=== PATIENT | female | born 2000 | race Hispanic/Latino ===

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

== ENCOUNTER 2023-06-19 19:41 | Emergency (ER) | payer SELFPAY ==
--- OUTSIDE RECORDS SUMMARY | 2023-06-19 19:47 | XMS REPORT | Continuity of Care Document ---
Author Name Unknown Address [address] [facility] [address] [place] [address] [facility] thconnect Address [address] [facility] [address] [place] [address] Care Team Providers Care Transformation Manager Name Role Phone PCP, PATIENT DOES NOT HAVE A Primary Care Physic fiordaliza Unavailable JAM FREITAS Attending Clinician Unavailable James Wheeler MD Attending Clinician [phone] Jam Freitas MD Attending Clinician [phone] SIDNEY SANTAMAIRA Attending Clinician UnavailSIDNEY Augustin Attending Clinician UnavailRAMA Garcia Attending Clinician Unavailab Rama Dominguez Attending Clinician [phone] Teagan Chase MD Attending Clinician [phone] ROWAN ORTEGA Attending Clinician Unavailable Rowan Ortega MD Attending Clinician [phone] ANYA ISAACS Attending Clinician Unavailable Anya Clark Attending Clinician [phone] TEAGAN CHASE Attending Clinician Unavailable ANGUS QUIÑONEZ Attending Clinician ANGUS Ramsay Attending Clinician Sindi hanna Ultrasound, Adc Mfm Attending Clinician Unavaila gera Meza MD, Penelope Attending Clinician + PENELOPE BELL Attending Clinician Unav ailable Doctor Unassigned, [place] Attending Clinician U navailable 2, Ad[facility] Lab Attending Clinician Unavailable Carey Salgado PA-C Attending Clinician [phone] CAREY SALGADO Attending Clinician Unavailable Ultrasound, Ang-Mfm Attending Clinician Unavaila gera Julian DO, Wesley Attending Clinician [phone] NICOL SANCHES Attending Clinician Unavailable Nicol Sanches APN Attending Clinician [phone] Only, Adc Test Attending Clinician Unavailable Pob, [facility] Lab Main Attending Clinician Unavailrichar Keller MD, Jonnie Romano Attending Clinician + [phone] ROWAN ORTEGA Admitting Clinician Unavailable RAMA RESENDIZ Admitting Clinician Unavailab TEAGAN Chavez Admitting Clinician Unavailable Teagan Chase MD Admitting Clinician [phone] Payers Payer Name Policy Type Policy Number Effective Date Expirati on Date Source [facility] [id number] 00:00:00 [employer] [id number] 2023 00:00:00 Problems Condition Name Condition Details Condition Category Status Onset Date Resolution Date Last Treatment Date Treating Clinician Comments Source Oligohydra mnios in third trimester, single or unspecifie d fetus Oligohydra mnios in third trimester, single or unspecifie d fetus Disease Active 06-02 00:00: 00 [facility] Status post tubal ligation Status post tubal ligation Disease Active 06-02 00:00: 00 [facility] Anemia of mother in , antepartum Anemia of mother in , antepartum Disease Active 05-18 00:00: 00 [facility] Anemia of mother in , antepartum Anemia of mother in , antepartum Disease Active 05-18 00:00: 00 [facility] High-risk in third trimester High-risk in third trimester Disease Active 0 3-20 00:00: 00 [facility] Positive RPR test Positive RPR test Disease Active 0 2-13 00:00: 00 [facility] Anemia, antepartum , third trimester Anemia, antepartum , third trimester Disease Active 0 9-08 00:00: 00 [facility] 36 weeks gestation of 36 weeks gestation of Disease Active 0 6-09 00:00: 00 [facility] Low-lying placenta in second trimester Low-lying placenta in second trimester Disease Active 0 6-09 00:00: 00 Last Assessmen t & Plan: Formattin g of this note might be different from the original. Resolved on 11/01/2020 [facility] 39 weeks gestation of 39 weeks gestation of Disease Active 6-09 00:00: 00 [facility] Previous section Previous section Disease Active 3-17 00:00: 00 [facility] Poor growth affecting management of mother in third trimester Poor growth affecting management of mother in third trimester Disease Active 09-20 00:00: 00 [facility] 37 weeks gestation of 37 weeks gestation of Disease Active 09-20 00:00: 00 [facility] Obesity (BMI 30-39.9) Obesity (BMI 30-39.9) Disease Active 09-20 00:00: 00 [facility] Liveborn infant, of loza , born in hospital by delivery Liveborn infant, of loza , born in hospital by delivery Disease Active 09-20 00:00: 00 [facility] Rubella non-immune status, antepartum Rubella non-immune status, antepartum Disease Active 16 00:00: 00 Overview: Formattin g of this note might be different from the original. Address pp [facility] Supervisio n of other normal Supervisio n of other normal Disease Active 4-15 00:00: 00 Overview: Formattin g of this note might be different from the original. See scanned records for previous care [facility] Obesity in Obesity in Disease Active 06-13 00:00: 00 [facility] Supervisio n of high-risk with insufficie nt care in third trimester Supervisio n of high-risk with insufficie nt care in third trimester Disease Active 06-13 00:00: 00 Overview: Formattin g of this note might be different from the original. See scanned records for previous care [facility] Allergies, Adverse Reactions, Alerts Allergy Name Allergy Type Status Severity Reaction(s) Onset Date Inactive Date Treating Clinician Comments Source NO KNOWN ALLERGIE S Drug Class Active [facility] Social History Social Habit Start Date Stop Date Quantity Comments Source ASSERTION 2021-09-26 00:00:00 [facility] 2022-06-05 00:00:00 2022-06-05 00:00:00 Current non-drinker of alcohol (finding) [facility] Exposure to SARS-CoV-2 (event) 2022-05-25 00:00:00 2022-06-04 22:20:00 Not sure [facility] Tobacco use and exposure 2022-06-02 00:00:00 2022-06-02 00:00:00 Smokeless tobacco non-user [facility] History of Social function 2018-09-06 00:00:00 2018-09-06 00:00:00 [facility] Sex Assigned At 2000 00:00:00 2000 00:00:00 [facility] Smoking Status Start Date Stop Date Source Never smoked tobacco [facility] Medications Ordered Medication Name Filled Medication Name Start Date Stop Date Current Medication? Ordering Clinician Indication Dosage Frequency Signature (SIG) Comments Components Source diazePAM (VALIUM) tablet 10 mg 06-04 01:45: 00 06-04 01:44 :00 No 10mg 10 mg, Oral, ONCE, 1 dose, On Wed06/04/23 at 2045, CANDY [facility] acetaminoph en (TYLENOL) tablet 650 mg 04-15 01:15: 00 04-15 01:23 :00 No 650mg 650 mg, Oral, ONCE, 1 dose, On Wed04/14/23 at 1915, CANDY [facility] traMADoL 50 mg tablet 04-14 00:00: 00 04-18 05:59 :00 Yes [id number] 50mg Take 1 tablet by mouth every 6 (six) hours as needed for Pain (scale 7-10) for up to 3 days. Indication s: acute pain [facility] traMADoL (ULTRAM) tablet 50 mg 06-05 05:45: 00 06-05 04:48 :00 No 50mg 50 mg, Oral, ONCE, 1 dose, On Wed06/05/22 at 0045, Routine [facility] ibuprofen (IBU) tablet 600 mg 06-04 17:00: 00 06-04 19:53 :15 No 600mg 600 mg, Oral, Q6H ABX, First dose on Wed06/04/22 at 1200, Until Discontinu ed, Routine [facility] acetaminoph en 325 mg tablet 06-04 00:00: 00 Yes [id number] 650mg Take 2 tablets by mouth every 6 (six) hours as needed for Pain (scale 1-3) or Pain (scale 4-6). [facility] vitamin w/FA tablet 06-04 00:00: 00 Yes [id number] 1{tbl} Take 1 tablet by mouth in the morning. [facility] docusate 100 mg capsule 06-04 00:00: 00 Yes [id number] 200mg Take 2 capsules by mouth once daily as needed for Constipati on. [facility] ferrous sulfate 325 mg (65 mg iron) tablet 06-04 00:00: 00 Yes [id number] 325mg Take 1 tablet by mouth in the morning and 1 tablet in the evening. [facility] ibuprofen 600 mg tablet 06-04 00:00: 00 Yes [id number] 600mg Take 1 tablet by mouth every 6 (six) hours as needed (Pain). Take with food or milk. [facility] vitamin w/FA tablet 06-04 00:00: 00 Yes [id number] 1{tbl} Take 1 tablet by mouth in the morning. [facility] HYDROcodone -acetaminop hen 5-325 mg tablet 06-04 00:00: 00 06-12 04:59 :00 No [id number] 1{tbl} Take 1 tablet by mouth every 6 (six) hours as needed for Pain (scale 7-10) (Alternate with Ibuprofen) for up to 7 days. Indication s: acute pain [facility] gabapentin 300 mg capsule 06-04 00:00: 00 06-10 04:59 :00 No [id number] 300mg Take 1 capsule by mouth in the morning and 1 capsule at noon and 1 capsule in the evening. Do all this for 5 days. [facility] ketorolac (TORADOL) injection 30 mg 06-03 17:00: 00 06-04 11:30 :00 No 30mg 30 mg, Slow IV Push, Q6H ABX, 4 doses, First dose on Wed06/03/22 at 1200, Last dose on Wed06/04/22 at 0600, Routine [facility] gabapentin (NEURONTIN) capsule 300 mg 06-03 13:00: 00 06-04 19:53 :15 No 300mg 300 mg, Oral, TID, First dose on Wed06/03/22 at 0800, Until Discontinu ed, Routine [facility] acetaminoph en (TYLENOL) tablet 650 mg 06-03 11:00: 00 06-04 19:53 :15 No 650mg 650 mg, Oral, Q6H ABX, First dose on Wed06/03/22 at 0600, Until Discontinu ed, Routine [facility] HYDROcodone -acetaminop hen (NORCO 5) 5-325 mg tablet 1 tablet 06-03 11:00: 00 06-04 19:53 :15 No 1{tbl} 1 tablet, Oral, Q6HPRN, Starting on Wed06/03/22 at 0600, Until Wed06/04/22 at 1453, Routine, Pain (scale 7-10), Alternate with Ibuprofen [facility] mupirocin (BACTROBAN OINT) 2 % skin ointment 06-03 02:50: 00 06-04 19:53 :15 No Intra-op [facility] sodium chloride 0.9 % irrigation solution 06-03 02:48: 00 06-04 19:53 :15 No PRN, Starting on Wed06/02/22 at 2148, Until Wed06/04/22 at 1453, Intra-op [facility] rho(D) immune globulin (RHOGAM) syringe 300 mcg 06-03 01:47: 55 06-04 19:53 :15 No 300ug 300 mcg, Intramuscu lar, ONCE, For 1 dose, Conditiona l, Routine [facility] diphenhydrA MINE (BENADRYL) injection 25 mg 06-03 01:46: 02 06-04 19:53 :15 No 25mg 25 mg, Slow IV Push, Q6HPRN, Starting on Wed06/02/22 at 2046, Until Patt 06/04/22 at 1453, Routine, Itching [facility] diphenhydrA MINE (BENADRYL) tablet 25 mg 06-03 01:46: 01 06-04 19:53 :15 No 25mg 25 mg, Oral, Q6HPRN, Starting on Wed06/02/22 at 2046, Until Patt 06/04/22 at 1453, Routine, Sleep, Itching [facility] ondansetron (ZOFRAN (PF)) injection 4 mg 06-03 01:46: 01 06-04 19:53 :15 No 4mg 4 mg, Slow IV Push, Q8HPRN, Starting on Wed06/02/22 at 204, Until Patt 06/04/22 at 1453, Routine, Nausea and Vomiting (N/V) [facility] bisacodyL (DULCOLAX) suppository 10 mg 06-03 01:46: 06-04 19:53 :15 No 10mg 10 mg, Rectal, QDAILYPRN, Starting on Wed06/02/22 at 2045, Until Patt 06/04/22 at 1453, Routine, Constipati on [facility] simethicone (GAS RELIEF (SIMETHICON E)) chewable tablet 160 mg 06-03 01:46: 01 06-04 19:53 :15 No 160mg 160 mg, Oral, PC+HSPRN, Starting on Wed06/02/22 at 2045, Until Patt 06/04/22 at 1453, Routine, Gas [facility] docusate (COLACE) capsule 200 mg 06-03 01:46: 01 06-04 19:53 :15 No 200mg 200 mg, Oral, QDAILYPRN, Starting on Wed06/02/22 at 2045, Until Patt 06/04/22 at 1453, Routine, Constipati on [facility] magnesium hydroxide (MILK OF MAGNESIA) 400 mg/5 mL suspension 30 mL 06-03 01:46: 01 06-04 19:53 :15 No 30mL 30 mL, Oral, QDAILYPRN, Starting on Wed06/02/22 at 2045, Until Patt 06/04/22 at 1453, Routine, Constipati on [facility] lactated ringers IV infusion 1,000 mL 06-03 01:46: 01 06-03 12:51 :00 No 1000mL at 125 mL/hr, 1,000 mL, IV Infusion, PRN, 1 dose, Starting on Wed06/02/22 at 2045, Until Wed06/03/22 at 0751, Routine [facility] sodium citrate-cit mel acid (BICITRA) 500-334 mg/5 mL solution 30 mL 06-02 15:45: 44 06-03 01:36 :00 No 30mL 30 mL, Oral, PRE-PROCED URE ONCE, 1 dose, Starting on Wed06/02/22 at 1045, Until Discontinu ed, Routine, Surgery/Pr ocedure [facility] D5W-LR IV infusion 1,000 mL 06-02 15:45: 44 06-03 01:47 :53 No 1000mL at 1-125 mL/hr, IV Infusion, TITRATE, Starting on Wed06/02/22 at 1045, Until Wed06/02/22 at 2046, Routine [facility] ceFAZolin (ANCEF) 2,000 mg in NaCl 0.9% (NS) 100 mL MINI-BAG 06-02 15:45: 43 06-03 01:47 :53 No 2000mg 2,000 mg, IV Piggyback, O.R. HOLDING ONCE, Starting on Wed06/02/22 at 1045, Until Wed06/02/22 at 2046, Administer over 30 Minutes, 100 mL
Reas on for Anti-Infec tive: Surgical Prophylaxi s
[place] rgical Prophylaxi s: MEDICAL PRACTITIONERS
Duration of therapy: within 24 hours of surgery [facility] ferrous sulfate (IRON, FERROUS SULFATE,) 325 mg (65 mg iron) tablet 05-18 00:00: 00 06-04 00:00 :00 No [id number] 325mg Take 1 tablet by mouth in the morning and 1 tablet in the evening. [facility] ferrous sulfate (IRON, FERROUS SULFATE,) 325 mg (65 mg iron) tablet 04-29 00:00: 00 No [id number] 325mg Take 1 tablet by mouth in the morning and 1 tablet in the evening. [facility] PNV 102-iron-fo late-dha (VITAFOL FE PLUS) 90 mg iron- 1 mg-200 mg Cap 2021-03 00:00: 00 06-04 00:00 :00 No [id number] Take 1 TAB-CAP/M2 by mouth daily. [facility] ibuprofen (IBU) tablet 600 mg -12 09:00: 00 07-10 07:55 :00 No 600mg 600 mg, Oral, ONCE, 1 dose, On Patt 07/10/21 at 0400, [facility] acetaminoph en (TYLENOL) tablet 650 mg 07-10 08:00: 00 07-10 07:02 :00 No 650mg 650 mg, Oral, ONCE, 1 dose, On Patt 07/10/21 at 0300, [facility] HYDROcodone -acetaminop hen 5-325 mg tablet 11-11 00:00: 00 11-19 04:59 :00 No [id number] 1{tbl} Take 1 tablet by mouth every 6 (six) hours as needed for Pain (scale 7-10) for up to 7 days. Indication s: acute pain [facility] ondansetron (ZOFRAN (PF)) injection 4 mg 11-09 19:30: 00 11-09 18:33 :00 No 4mg 4 mg, Slow IV Push, ONCE, 1 dose, 11/09/20 at 1430, [facility] morpHINE injection 4 mg 11-09 19:30: 00 11-09 18:33 :00 No 4mg 4 mg, Slow IV Push, ONCE, 1 dose, 11/09/20 at 1430, STAT [facility] iopamidol (ISOVUE 370-500 mL) injection 120 mL 11-09 19:30: 00 11-09 18:30 :00 No [id number] 120mL 120 mL, Intravenou s, ONCE, 1 dose, 11/09/20 at 1430, Routine [facility] vit calc,iron,f olic ( VITAMIN ORAL) 11-08 12:36: 37 11-08 00:00 :00 No Take by mouth. [facility] ferrous sulfate tablet 325 mg 11-08 01:00: 00 Yes 325mg 325 mg, Oral, BID, First dose on Patt 11/07/20 at 2000, Until Discontinu ed, Routine [facility] ferrous sulfate 325 mg (65 mg iron) tablet 11-08 00:00: 00 05-18 00:00 :00 No [id number] 09 325mg Take 1 tablet by mouth 2 (two) times daily. [facility] acetaminoph en 325 mg tablet 11-08 00:00: 00 12-04 00:00 :00 No [id number] 09 650mg Take 2 tablets by mouth every 6 (six) hours as needed for Pain (scale 1-3) or Pain (scale 4-6). [facility] vitamin w/FA tablet 11-08 00:00: 00 12-04 00:00 :00 No [id number] 09 1{tbl} Take 1 tablet by mouth daily. [facility] docusate calcium 240 mg capsule 11-08 00:00: 00 12-04 00:00 :00 No [id number] 09 240mg Take 1 capsule by mouth once daily as needed for Constipati on. [facility] ibuprofen 600 mg tablet 11-08 00:00: 00 12-04 00:00 :00 No [id number] 09 600mg Take 1 tablet by mouth every 6 (six) hours as needed (Pain). Take with food or milk. [facility] gabapentin 300 mg capsule 11-08 00:00: 00 11-14 04:59 :00 No [id number] 09 300mg Take 1 capsule by mouth 3 (three) times daily for 5 days. [facility] HYDROcodone -acetaminop hen 5-325 mg tablet 11-08 00:00: 00 11-11 00:00 :00 No [id number] 1{tbl} Take 1 tablet by mouth every 6 (six) hours as needed for Pain (scale 7-10) for up to 7 days. Indication s: acute pain [facility] ibuprofen (IBU) tablet 600 mg 11-07 23:00: 00 Yes 600mg 600 mg, Oral, Q6H ABX, First dose (after last modificati on) on Wed11/07/20 at 1800, Until Discontinu ed, Routine [facility] HYDROcodone -acetaminop hen (NORCO 5) 5-325 mg tablet 1 tablet 11-07 05:00: 00 Yes 1{tbl} 1 tablet, Oral, Q6HPRN, Starting Wed11/07/20 at 0000, Until Discontinu ed, Routine, Pain (scale 7-10) [facility] acetaminoph en (TYLENOL) tablet 650 mg 11-07 02:30: 00 Yes 650mg 650 mg, Oral, Q6H ABX, First dose on Wed11/06/20 at 2130, Until Discontinu ed, Routine [facility] ketorolac (TORADOL) injection 30 mg 11-06 23:15: 00 11-07 16:43 :00 No 30mg 30 mg, Slow IV Push, Q6H ABX, 4 doses, First dose (after last modificati on) on Wed11/06/20 at 1815, Last dose on Wed11/07/20 at 1215, Routine
production team member approving Restricted medication : TEAGAN CHASE [facility] acetaminoph en ADULT (OFIRMEV) injection 1,000 mg 11-06 20:30: 00 11-06 20:55 :00 No 1000mg 1,000 mg, IV Infusion, Administer over 15 Minutes, Q6H, 1 dose, First dose on Wed11/06/20 at 1530, Routine, PACU
In dication: Perioperat rivera Patient [facility] gabapentin (NEURONTIN) capsule 300 mg 11-06 19:00: 00 Yes 300mg 300 mg, Oral, TID, First dose on Wed11/06/20 at 1400, Until Discontinu ed, Routine [facility] simethicone (GAS RELIEF (SIMETHICON E)) chewable tablet 160 mg 11-06 18:00: 00 Yes 160mg 160 mg, Oral, PC+HS, First dose on Wed11/06/20 at 1300, Until Discontinu ed, Routine [facility] lactated ringers IV infusion 1,000 mL 11-06 16:15: 00 11-07 03:03 :00 No 1000mL at 125 mL/hr, 1,000 mL, IV Infusion, ONCE, 1 dose, Wed11/06/20 at 1115, Routine [facility] rho(D) immune globulin (RHOGAM) syringe 300 mcg 11-06 15:51: 10 Yes 300ug 300 mcg, Intramuscu lar, ONCE, For 1 dose, Conditiona l, Routine [facility] diphenhydrA MINE (BENADRYL) tablet 25 mg 11-06 15:51: 05 Yes 25mg 25 mg, Oral, Q6HPRN, Starting Wed11/06/20 at 1051, Until Discontinu ed, Routine, Sleep, Itching [facility] ondansetron (ZOFRAN (PF)) injection 4 mg 11-06 15:51: 05 Yes 4mg 4 mg, Slow IV Push, Q8HPRN, Starting Wed11/06/20 at 1051, Until Discontinu ed, Routine, Nausea and Vomiting (N/V) [facility] bisacodyL (DULCOLAX) suppository 10 mg 11-06 15:51: 05 Yes 10mg 10 mg, Rectal, QDAILYPRN, Starting Wed11/06/20 at 1051, Until Discontinu ed, Routine, Constipati on [facility] magnesium hydroxide (MILK OF MAGNESIA) 400 mg/5 mL suspension 30 mL 11-06 15:51: 05 Yes 30mL 30 mL, Oral, QDAILYPRN, Starting Wed11/06/20 at 1051, Until Discontinu ed, Routine, Constipati on [facility] HYDROmorphO ne (DILAUDID) injection 0.2 mg 11-06 15:11: 16 Yes .2mg 0.2 mg, Slow IV Push, Q5MIN PRN, 10 doses, Starting Wed11/06/20 at 1011, Until Discontinu ed, Routine, Pain (scale 7-10), PACU
Us e approved by (Faculty): PACU USE -ANESTHESI A SERVICE-HY DROMORPHON E INJECTIONS [facility] naloxone (NARCAN) injection 0.4 mg 11-06 15:11: 16 11-08 15:10 :16 No .4mg 0.4 mg, Slow IV Push, PRN - SEE INSTRUCTIO NS, Starting Wed11/06/20 at 1011, Until 11/08/20 at 1010, Routine, Analgesia Recovery, PACU [facility] metoclopram chidi HCl (REGLAN) injection 10 mg 11-06 15:11: 16 11-07 15:10 :16 No 10mg 10 mg, Slow IV Push, Q4HPRN, Starting Wed11/06/20 at 1011, Until Patt 11/07/20 at 1010, Routine, Nausea and Vomiting (N/V), PACU [facility] nalbuphine (NUBAIN) injection 5 mg 11-06 15:11: 16 11-06 19:21 :00 No 5mg 5 mg, Intravenou s, PRN, 1 dose, Starting Wed11/06/20 at 1011, Until Discontinu ed, Routine, itching, PACU [facility] vit calc,iron,f olic ( VITAMIN ORAL) 11-06 15:06: 46 Yes Take by mouth. [facility] mupirocin (BACTROBAN OINT) 2 % skin ointment 11-06 14:43: 00 Yes Intra-op [facility] sodium chloride 0.9 % irrigation solution 11-06 14:43: 00 Yes PRN, Starting Wed11/06/20 at 0943, Until Discontinu ed, Intra-op [facility] D5W-LR IV infusion 1,000 mL 11-06 10:45: 00 11-06 15:51 :10 No 1000mL at 125 mL/hr, IV Infusion, CONTINUOUS , Starting Wed11/06/20 at 0545, Until Wed11/06/20 at 1051, Routine [facility] vit calc,iron,f olic ( VITAMIN ORAL) 08-06 20:04: 39 Yes Take by mouth. [facility] Immunizations Ordered Immunization Name Filled Immunization Name Date Status Comments Source MMR 2018-09-22 00:00:00 Completed [facility] MMR 2018-09-22 00:00:00 Completed [facility] MMR 2018-09-22 00:00:00 Completed [facility] MMR 2018-09-22 00:00:00 Completed [facility] MMR 2018-09-22 00:00:00 Completed [facility] MMR 2018-09-22 00:00:00 Completed [facility] MMR 2018-09-22 00:00:00 Completed [facility] MMR 2018-09-22 00:00:00 Completed [facility] MMR 2018-09-22 00:00:00 Completed [facility] MMR 2018-09-22 00:00:00 Completed [facility] MMR 2018-09-22 00:00:00 Completed [facility] MMR 2018-09-22 00:00:00 Completed [facility] MMR 2018-09-22 00:00:00 Completed [facility] MMR 2018-09-22 00:00:00 Completed [facility] MMR 2018-09-22 00:00:00 Completed [facility] MMR 2018-09-22 00:00:00 Completed [facility] MMR 2018-09-22 00:00:00 Completed [facility] MMR 2018-09-22 00:00:00 Completed [facility] MMR 2018-09-22 00:00:00 Completed [facility] MMR 2018-09-22 00:00:00 Completed [facility] MMR 2018-09-22 00:00:00 Completed [facility] MMR 2018-09-22 00:00:00 Completed [facility] MMR 2018-09-22 00:00:00 Completed [facility] MMR 2018-09-22 00:00:00 Completed [facility] MMR 2018-09-22 00:00:00 Completed [facility] MMR 2018-09-22 00:00:00 Completed [facility] MMR 2018-09-22 00:00:00 Completed [facility] MMR 2018-09-22 00:00:00 Completed [facility] MMR 2018-09-22 00:00:00 Completed [facility] MMR 2018-09-22 00:00:00 Completed [facility] MMR 2018-09-22 00:00:00 Completed [facility] MMR 2018-09-22 00:00:00 Completed [facility] MMR 2018-09-22 00:00:00 Completed [facility] MMR 2018-09-22 00:00:00 Completed [facility] MMR 2018-09-22 00:00:00 Completed [facility] MMR 2018-09-22 00:00:00 Completed [facility] MMR 2018-09-22 00:00:00 Completed [facility] MMR 2018-09-22 00:00:00 Completed [facility] MMR 2018-09-22 00:00:00 Completed [facility] MMR 2018-09-22 00:00:00 Completed [facility] MMR 2018-09-22 00:00:00 Completed [facility] MMR 2018-09-22 00:00:00 Completed [facility] MMR 2018-09-22 00:00:00 Completed [facility] MMR 2018-09-22 00:00:00 Completed [facility] MMR 2018-09-22 00:00:00 Completed [facility] MMR 2018-09-22 00:00:00 Completed [facility] TDAP 2018-07-11 00:00:00 Completed [facility] TDAP 2018-07-11 00:00:[address] [facility] TDAP 2018-07-11 00:00:[address] [facility] TDAP 2018-07-11 00:00:[address] [facility] TDAP 2018-07-11 00:00:[address] [facility] TDAP 2018-07-11 00:00:[address] [facility] TDAP 2018-07-11 00:00:[address] [facility] TDAP 2018-07-11 00:00:[address] [facility] TDAP 2018-07-11 00:00:[address] [facility] TDAP 2018-07-11 00:00:00 Completed [facility] TDAP 2018-07-11 00:00:00 Completed [facility] TDAP 2018-07-11 00:00:00 Completed [facility] TDAP 2018-07-11 00:00:00 Completed [facility] TDAP 2018-07-11 00:00:00 Completed [facility] TDAP 2018-07-11 00:00:[address] [facility] TDAP 2018-07-11 00:00:00 Completed [facility] TDAP 2018-07-11 00:00:00 Completed [facility] TDAP 2018-07-11 00:00:00 Completed [facility] TDAP 2018-07-11 00:00:00 Completed [facility] TDAP 2018-07-11 00:00:00 Completed [facility] TDAP 2018-07-11 00:00:00 Completed [facility] TDAP 2018-07-11 00:00:00 Completed [facility] TDAP 2018-07-11 00:00:00 Completed [facility] TDAP 2018-07-11 00:00:00 Completed [facility] TDAP 2018-07-11 00:00:00 Completed [facility] TDAP 2018-07-11 00:00:00 Completed [facility] TDAP 2018-07-11 00:00:00 Completed [facility] TDAP 2018-07-11 00:00:00 Completed [facility] TDAP 2018-07-11 00:00:00 Completed [facility] TDAP 2018-07-11 00:00:00 Completed [facility] TDAP 2018-07-11 00:00:00 Completed [facility] TDAP 2018-07-11 00:00:00 Completed [facility] TDAP 2018-07-11 00:00:00 Completed [facility] TDAP 2018-07-11 00:00:00 Completed [facility] TDAP 2018-07-11 00:00:00 Completed [facility] TDAP 2018-07-11 00:00:00 Completed [facility] TDAP 2018-07-11 00:00:00 Completed [facility] TDAP 2018-07-11 00:00:00 Completed [facility] TDAP 2018-07-11 00:00:00 Completed [facility] TDAP 2018-07-11 00:00:00 Completed [facility] TDAP 2018-07-11 00:00:00 Completed [facility] TDAP 2018-07-11 00:00:00 Completed [facility] TDAP 2018-07-11 00:00:00 Completed [facility] TDAP 2018-07-11 00:00:00 Completed [facility] TDAP 2018-07-11 00:00:00 Completed [facility] TDAP 2018-07-11 00:00:00 Completed [facility] TDAP Unknown Completed [facility] MMR Unknown Completed [facility] TDAP Unknown Completed [facility] MMR Unknown Completed [facility] TDAP Unknown Completed [facility] MMR Unknown Completed [facility] TDAP Unknown Completed [facility] MMR Unknown Completed [facility] TDAP Unknown Completed [facility] MMR Unknown Completed [facility] TDAP Unknown Completed [facility] MMR Unknown Completed [facility] Vital Signs Vital Name Observation Time Observation Value Comments S ource Heart rate 2023-06-05 01:40:00 100 /min [facility] Oxygen saturation in Arterial blood by Pulse oximetry 2023-06-05 01:40:00 96 /min [facility] Systolic blood pressure 2023-06-05 01:29:00 130 mm[Hg] [facility] Diastolic blood pressure 2023-06-05 01:29:00 73 mm[Hg] [facility] Body temperature 2023-06-05 01:29:00 37.28 Maryanne [facility] Respiratory rate 2023-06-05 01:29:00 26 /min [facility] Body height 2023-06-05 01:29:00 160 cm [facility] Body weight 2023-06-05 01:29:00 72.576 kg [facility] BMI 2023-06-05 01:29:00 28.34 kg/m2 [facility] Systolic blood pressure 2023-04-15 03:00:35 117 mm[Hg] [facility] Diastolic blood pressure 2023-04-15 03:00:35 78 mm[Hg] [facility] Heart rate 2023-04-15 03:00:35 80 /min [facility] Respiratory rate 2023-04-15 03:00:35 18 /min [facility] Oxygen saturation in Arterial blood by Pulse oximetry 2023-04-15 03:00:35 100 /min [facility] Body temperature 2023-04-15 00:42:00 37.44 Maryanne [facility] Body height 2023-04-15 00:42:00 160 cm [facility] Body weight 2023-04-15 00:42:00 72.576 kg [facility] BMI 2023-04-15 00:42:00 28.34 kg/m2 [facility] Systolic blood pressure 2022-06-05 20:27:00 115 mm[Hg] [facility] Diastolic blood pressure 2022-06-05 20:27:00 83 mm[Hg] [facility] Heart rate 2022-06-05 20:27:00 89 /min [facility] Body temperature 2022-06-05 20:27:00 36.72 Maryanne [facility] Respiratory rate 2022-06-05 20:27:00 185 /min [facility] Body height 2022-06-05 20:27:00 160 cm [facility] Body weight 2022-06-05 20:27:00 88.724 kg [facility] BMI 2022-06-05 20:27:00 34.65 kg/m2 [facility] Systolic blood pressure 2022-06-05 03:20:00 122 mm[Hg] [facility] Diastolic blood pressure 2022-06-05 03:20:00 80 mm[Hg] [facility] Heart rate 2022-06-05 03:20:00 92 /min [facility] Body temperature 2022-06-05 03:20:00 37.22 Maryanne [facility] Respiratory rate 2022-06-05 03:20:00 16 /min [facility] Body height 2022-06-05 03:20:00 160 cm [facility] Body weight 2022-06-05 03:20:00 86.183 kg [facility] BMI 2022-06-05 03:20:00 33.66 kg/m2 [facility] Oxygen saturation in Arterial blood by Pulse oximetry 2022-06-05 03:20:00 100 /min [facility] Systolic blood pressure 2022-06-04 12:42:00 108 mm[Hg] [facility] Diastolic blood pressure 2022-06-04 12:42:00 76 mm[Hg] [facility] Body temperature 2022-06-04 12:42:00 37.06 Maryanne [facility] Respiratory rate 2022-06-04 12:42:00 16 /min [facility] Oxygen saturation in Arterial blood by Pulse oximetry 2022-06-04 12:42:00 100 /min [facility] Heart rate 2022-06-04 10:19:00 89 [facility] Body height 2022-06-02 16:01:00 160 cm [facility] Body weight 2022-06-02 16:01:00 87.544 kg [facility] BMI 2022-06-02 16:01:00 34.19 kg/m2 [facility] Systolic blood pressure 2022-06-02 20:00:00 92 mm[Hg] [facility] Diastolic blood pressure 2022-06-02 20:00:00 50 mm[Hg] [facility] Heart rate 2022-06-02 20:00:00 71 /min [facility] Body temperature 2022-06-02 20:00:00 36.94 Maryanne [facility] Respiratory rate 2022-06-02 20:00:00 18 /min [facility] Oxygen saturation in Arterial blood by Pulse oximetry 2022-06-02 20:00:00 99 /min [facility] Body height 2022-06-02 16:01:00 160 cm [facility] Body weight 2022-06-02 16:01:00 87.544 kg [facility] BMI 2022-06-02 16:01:00 34.19 kg/m2 [facility] Systolic blood pressure 2022-05-18 15:18:00 107 mm[Hg] [facility] Diastolic blood pressure 2022-05-18 15:18:00 71 mm[Hg] [facility] Heart rate 2022-05-18 15:18:00 84 /min [facility] Body temperature 2022-05-18 15:18:00 36.72 Maryanne [facility] Respiratory rate 2022-05-18 15:18:00 18 /min [facility] Body height 2022-05-18 15:18:00 160 cm [facility] Body weight 2022-05-18 15:18:00 88.451 kg [facility] BMI 2022-05-18 15:18:00 34.54 kg/m2 [facility] Systolic blood pressure 2022-04-29 19:04:00 108 mm[Hg] [facility] Diastolic blood pressure 2022-04-29 19:04:00 73 mm[Hg] [facility] Heart rate 2022-04-29 19:04:00 84 /min [facility] Body temperature 2022-04-29 19:04:00 37.11 Maryanne [facility] Respiratory rate 2022-04-29 19:04:00 18 /min [facility] Body height 2022-04-29 19:04:00 160 cm [facility] Body weight 2022-04-29 19:04:00 77.111 kg [facility] BMI 2022-04-29 19:04:00 30.11 kg/m2 [facility] Systolic blood pressure 2022-04-13 21:43:00 103 mm[Hg] [facility] Diastolic blood pressure 2022-04-13 21:43:00 68 mm[Hg] [facility] Heart rate 2022-04-13 21:43:00 85 /min [facility] Body temperature 2022-04-13 21:43:00 36.61 Maryanne [facility] Body height 2022-04-13 21:43:00 160 cm [facility] Body weight 2022-04-13 21:43:00 84.641 kg [facility] BMI 2022-04-13 21:43:00 33.05 kg/m2 [facility] Systolic blood pressure 2022-02-11 21:12:00 101 mm[Hg] [facility] Diastolic blood pressure 2022-02-11 21:12:00 65 mm[Hg] [facility] Heart rate 2022-02-11 21:12:00 77 /min [facility] Body temperature 2022-02-11 21:12:00 37.06 Maryanne [facility] Respiratory rate 2022-02-11 21:12:00 18 /min [facility] Body height 2022-02-11 21:12:00 160 cm [facility] Body weight 2022-02-11 21:12:00 77.565 kg [facility] BMI 2022-02-11 21:12:00 30.29 kg/m2 [facility] Systolic blood pressure 2022-01-05 21:26:00 103 mm[Hg] [facility] Diastolic blood pressure 2022-01-05 21:26:00 67 mm[Hg] [facility] Heart rate 2022-01-05 21:26:00 101 /min [facility] Body temperature 2022-01-05 21:26:00 36.72 Maryanne [facility] Respiratory rate 2022-01-05 21:26:00 18 /min [facility] Body height 2022-01-05 21:26:00 160 cm [facility] Body weight 2022-01-05 21:26:00 75.025 kg [facility] BMI 2022-01-05 21:26:00 29.30 kg/m2 [facility] Body temperature 2021-07-10 08:00:00 38.06 Maryanne [facility] Systolic blood pressure 2021-07-10 06:42:00 111 mm[Hg] [facility] Diastolic blood pressure 2021-07-10 06:42:00 70 mm[Hg] [facility] Heart rate 2021-07-10 06:42:00 150 /min [facility] Respiratory rate 2021-07-10 06:42:00 22 /min [facility] Body height 2021-07-10 06:42:00 160 cm [facility] Body weight 2021-07-10 06:42:00 68.04 kg [facility] BMI 2021-07-10 06:42:00 26.57 kg/m2 [facility] Oxygen saturation in Arterial blood by Pulse oximetry 2021-07-10 06:42:00 98 /min [facility] Systolic blood pressure 2020-12-04 16:17:00 110 mm[Hg] [facility] Diastolic blood pressure 2020-12-04 16:17:00 75 mm[Hg] [facility] Heart rate 2020-12-04 16:17:00 96 /min [facility] Body temperature 2020-12-04 16:17:00 36.89 Maryanne [facility] Respiratory rate 2020-12-04 16:17:00 18 /min [facility] Body height 2020-12-04 16:17:00 160 cm [facility] Body weight 2020-12-04 16:17:00 76.567 kg [facility] BMI 2020-12-04 16:17:00 29.90 kg/m2 [facility] Systolic blood pressure 2020-11-11 20:18:00 120 mm[Hg] [facility] Diastolic blood pressure 2020-11-11 20:18:00 78 mm[Hg] [facility] Heart rate 2020-11-11 20:18:00 91 /[facility] Body temperature 2020-11-11 20:18:00 36.83 Maryanne [facility] Respiratory rate 2020-11-11 20:18:00 18 /min [facility] Body height 2020-11-11 20:18:00 160 cm [facility] Body weight 2020-11-11 20:18:00 79.833 kg [facility] BMI 2020-11-11 20:18:00 31.18 kg/m2 [facility] Systolic blood pressure 2020-11-09 17:51:00 144 mm[Hg] [facility] Diastolic blood pressure 2020-11-09 17:51:00 82 mm[Hg] [facility] Heart rate 2020-11-09 17:51:00 84 /min [facility] Body temperature 2020-11-09 17:51:00 37.33 Maryanne [facility] Respiratory rate 2020-11-09 17:51:00 14 /min [facility] Body weight 2020-11-09 17:51:00 83.462 kg [facility] BMI 2020-11-09 17:51:00 32.59 kg/m2 [facility] Oxygen saturation in Arterial blood by Pulse oximetry 2020-11-09 17:51:00 99 /min [facility] Systolic blood pressure 2020-11-08 08:51:00 107 mm[Hg] [facility] Diastolic blood pressure 2020-11-08 08:51:00 67 mm[Hg] [facility] Heart rate 2020-11-08 08:51:00 85 /min [facility] Body temperature 2020-11-08 08:51:00 36.56 Maryanne [facility] Respiratory rate 2020-11-08 08:51:00 18 /min [facility] Oxygen saturation in Arterial blood by Pulse oximetry 2020-11-08 08:51:00 100 /min [facility] Body height 2020-11-06 10:47:00 160 cm [facility] Body weight 2020-11-06 10:47:00 83.553 kg [facility] BMI 2020-11-06 10:47:00 32.63 kg/m2 [facility] Systolic blood pressure 2020-11-06 12:30:00 110 mm[Hg] [facility] Diastolic blood pressure 2020-11-06 12:30:00 73 mm[Hg] [facility] Heart rate 2020-11-06 12:30:00 72 /min [facility] Oxygen saturation in Arterial blood by Pulse oximetry 2020-11-06 12:30:00 100 /min [facility] Body temperature 2020-11-06 10:47:00 36.72 Maryanne [facility] Respiratory rate 2020-11-06 10:47:00 18 /min [facility] Body height 2020-11-06 10:47:00 160 cm [facility] Body weight 2020-11-06 10:47:00 83.553 kg [facility] BMI 2020-11-06 10:47:00 32.63 kg/m2 [facility] Systolic blood pressure 2020-11-05 19:29:00 103 mm[Hg] [facility] Diastolic blood pressure 2020-11-05 19:29:00 69 mm[Hg] [facility] Heart rate 2020-11-05 19:29:00 80 /min [facility] Body temperature 2020-11-05 19:29:00 36.78 Maryanne [facility] Respiratory rate 2020-11-05 19:29:00 16 /min [facility] Body height 2020-11-05 19:29:00 160 cm [facility] Body weight 2020-11-05 19:29:00 83.462 kg [facility] BMI 2020-11-05 19:29:00 32.59 kg/m2 [facility] Systolic blood pressure 2020-10-21 21:57:00 114 mm[Hg] [facility] Diastolic blood pressure 2020-10-21 21:57:00 59 mm[Hg] [facility] Heart rate 2020-10-21 21:57:00 102 /min [facility] Body temperature 2020-10-21 21:57:00 36.78 Maryanne [facility] Respiratory rate 2020-10-21 21:57:00 18 /min [facility] Body height 2020-10-21 21:57:00 160 cm [facility] Body weight 2020-10-21 21:57:00 79.924 kg [facility] BMI 2020-10-21 21:57:00 31.21 kg/m2 [facility] Procedures Procedure Date / Time Performed Performing Clinician Source POCT TEST 2023-06-05 01:32:00 Jam Freitas [facility] CONSENT/REFUSAL FOR DIAGNOSIS AND TREATMENT 2023-04-15 00:12:04 Doctor Unassigned, [place] [facility] CONSENT/REFUSAL FOR DIAGNOSIS AND TREATMENT 2022-06-05 03:17:21 Doctor Unassigned, [place] [facility] PREPARE PACKED RBC 2022-06-04 17:48:26 Teagan Chase [facility] CBC WITH DIFF 2022-06-03 09:16:00 Teagan Chase [facility] CBC WITH DIFF 2022-06-03 09:16:00 Teagan Chase [facility] SURGICAL PATHOLOGY EXAM 2022-06-03 02:35:00 Teagan Chase [facility] SECTION 2022-06-03 01:27:00 Teagan Chase [facility] PREPARE PACKED RBC 2022-06-02 18:12:11 Teagan Chase [facility] CBC WITH DIFF 2022-06-02 16:23:00 Teagan Chase [facility] HEPATITIS B SURFACE ANTIGEN 2022-06-02 16:23:00 Teagan Chase [facility] HB ABO GROUPING 2022-06-02 16:23:00 Teagan Chase [facility] RHO (D) IMMUNE GLOBULIN 2022-06-02 16:23:00 Teagan Chase [facility] ADC OR LUIS ALBERTO ONLY - RPR 2022-06-02 16:23:00 Teagan Chase [facility] HIV 1/2 AG-AB WITH REFLEX 2022-06-02 16:23:00 Teagan Chase [facility] CBC WITH DIFF 2022-06-02 16:23:00 Teagan Chase [facility] HEPATITIS B SURFACE ANTIGEN 2022-06-02 16:23:00 Tara Chaseen [facility] HB ABO GROUPING 2022-06-02 16:23:00 Teagan Chase [facility] RHO (D) IMMUNE GLOBULIN 2022-06-02 16:23:00 Jose Antonio Teagan [facility] ADC OR LUIS ALBERTO ONLY - RPR 2022-06-02 16:23:00 Tara Chaseen [facility] HIV 1/2 AG-AB WITH REFLEX 2022-06-02 16:23:00 Jose AntonioTeagan [facility] HOSPITAL ADMISSION 2022-06-02 05:01:00 Doctor Un assigned, [place] [facility] POCT URINALYSIS W/O SPECIFIC GRAVITY 2022-05-18 00:00:00 Jose Antonio Teagan [facility] PATIENT FINANCIAL POLICY 2022-04-29 18:57:56 Doctor Unassigned, [place] [facility] POCT URINALYSIS W/O SPECIFIC GRAVITY 2022-04-29 00:00:00 Billy Carey [facility] STERILIZATION CONSENT FORM 2022-04-13 06:01:00 Doctor Unassigned, [place] [facility] POCT URINALYSIS W/O SPECIFIC GRAVITY 2022-04-13 00:00:00 Jose Antonio Teagan [facility] POCT URINALYSIS W/O SPECIFIC GRAVITY 2022-02-11 00:00:00 Carey Salgado [facility] SCANNED LAB RESULTS 2022-01-19 06:01:00 Doctor Wm shepherd, [place] [facility] URINE DRUG (IMMUNOASSAY) - COMPREHENSIVE DRUG SCREEN 2022-01-05 21:54:00 Teagan Chase [facility] GC & CHLAMYDIA AMPLIFIED ASSAY 2022-01-05 [facility]:54[facility]INAL [facility]OGENS BY NUCLEIC ACID TESTING 2022-01-05 21:54[facility]00 [facility] 2022-01-05 21:54:00 Teagan Chase [facility] PAP SMEAR-LIQUID BASED-CP 2022-01-05 21:54:00 Teagan Chase [facility] ASSIGNMENT OF BENEFITS 2022-01-05 20:45:16 Docto r Unassigned, [place] [facility] POCT TEST 2022-01-05 00:00:00 Teagan Chase [facility] POCT URINALYSIS W/O SPECIFIC GRAVITY 2022-01-05 00:00:00 Teagan Chase [facility] RAPID STREP SCREEN FOR GROUP A 2021-07-10 06:57:00 Nicol Sanches [facility] COVID-19 (ID NOW RAPID TESTING) 2021-07-10 06:57:00 Nicol Sanches [facility] RAPID INFLUENZA A/B 2021-07-10 06:49:00 Nicol Sanches [facility] NOTICE OF PRIVACY PRACTICES 2021-07-10 06:27:49 Doctor Unassigned, [place] [facility] CONSENT/REFUSAL FOR DIAGNOSIS AND TREATMENT 2021-07-10 06:27:10 Doctor Unassigned, [place] [facility] CT ABDOMEN PELVIS W CONTRAST 2020-11-09 18:23:18 James Wheeler [facility] CBC WITH DIFF 2020-11-09 18:00:00 James Wheeler [facility] PROTHROMBIN TIME / INR 2020-11-09 18:00:00 Jorje Wheeler [facility] ACTIVATED PARTIAL THRMPLAS BLANCA 2020-11-09 18:00:00 James Wheeler [facility] CONSENT/REFUSAL FOR DIAGNOSIS AND TREATMENT 2020-11-09 17:41:00 Doctor Unassigned, [place] [facility] CBC WITH DIFF 2020-11-07 08:46:00 [facility] CBC WITH DIFF 2020-11-07 08:46:00 Teagan Chase [facility] VENOUS CORD GAS 2020-11-06 14:26:00 Teagan Chase [facility] VENOUS CORD GAS 2020-11-06 14:26:00 Jose Antonio Teagan [facility] SECTION 2020-11-06 13:33:00 Teagan Chase [facility] SECTION 2020-11-06 13:33:00 Teagan Chase [facility] HOSPITAL ADMISSION 2020-11-06 05:01:00 Doctor Un assigned, [place] [facility] RHO (D) IMMUNE GLOBULIN 2020-11-05 21:10:00 Teagan Chase [facility] RHO (D) IMMUNE GLOBULIN 2020-11-05 21:10:00 ChaseTeagan [facility] ASSIGNMENT OF BENEFITS 2020-11-05 20:35:50 Docto r Unassigned, [place] [facility] POCT URINALYSIS W/O SPECIFIC GRAVITY 2020-11-05 19:30:00 Teagan Chase [facility] >14 WEEKS US LIMITED 2020-10-21 22:30:06 Teagan Chase [facility] URINE DRUG (IMMUNOASSAY) - COMPREHENSIVE DRUG SCREEN 2020-10-21 21:51:00 ChaseTeagan [facility] GC & CHLAMYDIA AMPLIFIED ASSAY 2020-10-21 21:51[facility]CCUS BY PCR 2020-10-21 21:51:00 Teagan Chase [facility] TRICHOMONAS AMPLIFIED ASSAY 2020-10-21 21:51:00 Teagan Chase [facility] POCT URINALYSIS W/O SPECIFIC GRAVITY 2020-10-21 00:00:00 Teagan Chase [facility] L&D VISIT (NON-DELIVERED) 2020-06-30 05:01:00 Doctor Unassigned, [place] [facility] L&D VISIT (NON-DELIVERED) 2020-06-30 05:01:00 Doctor Unassigned, [place] [facility] Encounters Start Date/Time End Date/Time Encounter Type Admission Type Attending Clinicians Care Facility Care Department Encounter ID Source 2020-12-30 22:00:33 Emergency [facility] [id number] [facility] 2020-12-29 23:49:53 Emergency [facility] [id number] [facility] 2020-12-29 16:34:20 Outpatient [facility] [id number] [facility] 2020-12-29 16:33:57 [facility] [facility] [id number] [facility] 2020-12-29 16:33:55 Emergency [facility] [id number] [facility] 2023-06-04 20:25:00 2023-06-04 20:56:00 Emergency X AAYUSH JAM [facility] ERT [id number] [facility] 2023-06-04 20:25:00 2023-06-04 20:56:00 Emergency James Wheeler Brent Anselmo [facility] 1.2840.114 350.1.13.10 4.2.7.2.686 [id number] [id number] [facility] 2023-05-05 15:30:00 2023-05-05 15:30:00 Outpatient R SIDNEY SANTAMARIA CRAIG [facility] [id number] [facility] 2023-04-14 18:43:00 2023-04-14 21:04:00 Emergency X RAMA RESENDIZ [facility] ERT [id number] [facility] 2023-04-14 18:43:00 2023-04-14 21:04:00 Emergency Rama Resendiz [facility] 1.84.114 350.1.13.10 4.2.7.2.686 [id number] [id number] [facility] 2022-10-04 00:00:00 2022-10-04 00:00:00 Patient Secure Msg Teagan Chase [facility] 1.2.840.114 350.1.13.10 4.2.7.2.686 [id number] 134 [id number] [facility] 2022-06-08 00:00:00 2022-06-08 00:00:00 Telephone Teagan Chase [facility] 1.2840.114 350.1.13.10 4.2.7.2.686 [id number] 134 [id number] [facility] 2022-06-05 15:00:00 2022-06-05 15:46:50 Outpatient R JUAN CROWAN SNYDER [facility] [id number] [facility] 2022-06-05 15:00:00 2022-06-05 15:46:50 Routine Visit Rowan Ortega [facility] 1.2.114 350.1.13.10 4.2.7.2.686 [id number] 134 [id number] [facility] 2022-06-04 22:24:00 2022-06-04 23:53:00 Emergency X ANYA ISAACS [facility] ERT [id number] [facility] 2022-06-04 22:24:00 2022-06-04 23:53:00 Emergency Anya Isaacs S [facility] 1.20.114 350.1.13.10 4.2.7.2.686 [id number] [facility] 2022-06-02 10:14:00 2022-06-04 12:35:00 Inpatient P TEAGAN CHASE [facility] [id number] [facility] 2022-06-02 10:14:00 2022-06-04 12:35:00 Hospital Encounter Teagan Chase [facility] 1.2.114 350.1.13.10 4.2.7.2.686 [id number] [id number] [facility] 2022-06-04 00:00:00 2022-06-04 00:00:00 Case Management Teagan Chase [facility] 1..114 350.1.13.10 4.2.7.2.686 [id number] 134 [id number] [facility] 2022-06-04 00:00:00 2022-06-04 00:00:00 Telephone Teagan Chase [facility] 1.2.840.114 350.1.13.10 4.2.7.2.686 [id number] 134 [id number] [facility] 2022-06-02 13:15:00 2022-06-02 15:06:00 Surgery Teagan Chase [facility] 1.2840.114 350.1.13.10 4.2.7.2.686 [id number] [id number] [facility] 2022-06-02 08:30:00 2022-06-02 09:00:00 Candy Polisher Visit Ultrasound, Adc Mfm Christian Melissa Penelope crenshaw [facility] 1.840.114 350.1.13.10 4.2.7.2.686 [id number] 134 [id number] [facility] 2022-06-02 08:30:00 2022-06-02 08:30:00 Outpatient P CHRISTIAN MELISSA Farida PENELOPE [facility] [id number] [facility] 2022-05-27 16:00:00 2022-05-27 16:00:00 Outpatient R TEAGAN CHASE [facility] [id number] [facility] 2022-05-18 09:45:00 2022-05-18 10:35:50 Outpatient R TEAGAN CHASE [facility] [id number] [facility] 2022-05-18 09:45:00 2022-05-18 10:35:50 Routine Visit Teagan Chase [facility] 1.2840.114 350.1.13.10 4.2.7.2.686 [id number] 134 [id number] [facility] 2022-04-30 00:00:00 2022-04-30 00:00:00 Patient Secure Msg Doctor Unassigned, [place] [facility] 1.2840.114 350.1.13.10 4.2.7.2.686 [id number] 134 [id number] [facility] 2022-04-29 13:45:00 2022-04-29 14:00:00 Candy Polisher Visit 2, Adc Lab Carey Salgado [facility] 1.2840.114 350.1.13.10 4.2.7.2.686 [id number] [facility] 2022-04-29 13:45:00 2022-04-29 13:45:00 Outpatient R KRISSSACHINEVITA CAREY [facility] [id number] [facility] 2022-04-29 13:00:00 2022-04-29 13:15:00 Routine Visit Carey Salgado [facility] 1.2840.114 350.1.13.10 4.2.7.2.686 [id number] 134 [id number] [facility] 2022-04-29 00:00:00 2022-04-29 00:00:00 Orders Only Doctor Unassigned, [place] [facility] 1.2840.114 350.1.13.10 4.2.7.2.686 [id number] [id number] [facility] 2022-04-29 00:00:00 2022-04-29 00:00:00 Case Management Teagan Chase [facility] 1.2840.114 350.1.13.10 4.2.7.2.686 [id number] 134 [id number] [facility] 2022-04-13 15:30:00 2022-04-13 16:33:37 Outpatient R TEAGAN CHASE [facility] [id number] [facility] 2022-04-13 15:30:00 2022-04-13 16:33:37 Routine Visit Teagan Chase [facility] 1.2.840.114 350.1.13.10 4.2.7.2.686 [id number] 134 [id number] [facility] 2022-04-13 00:00:00 2022-04-13 00:00:00 Orders Only Doctor Unassigned, [place] [facility] 1.2.840.114 350.1.13.10 4.2.7.2.686 [id number] [id number] [facility] 2022-03-09 16:00:00 2022-03-09 16:00:00 Outpatient R TEAGAN CHASE [facility] [id number] [facility] 2022-03-03 00:00:00 2022-03-03 00:00:00 Telephone Jose Antonio Teagan [facility] 1.2.840.114 350.1.13.10 4.2.7.2.686 [id number] 134 [id number] [facility] 2022-02-11 15:30:00 2022-02-11 16:19:47 Candy Polisher Visit 2, Adc Lab Teagan Chase Bam [facility] 1.2.840.114 350.1.13.10 4.2.7.2.686 [id number] [facility] 2022-02-11 16:15:00 2022-02-11 16:15:00 Routine Visit [facility] 1.2.840.114 350.1.13.10 4.2.7.2.686 [id number] 134 [id number] [facility] 2022-02-11 16:15:00 2022-02-11 15:48:51 Outpatient R CAREY SALGADO [facility] [id number] [facility] 2022-02-11 14:00:00 2022-02-11 15:00:00 Candy Polisher Visit Ultrasound, Wesley Santos [facility] 1.2840.114 350.1.13.10 4.2.7.2.686 [id number] [facility] 2022-02-02 10:45:00 2022-02-02 10:45:00 Outpatient R CAREY SALGADO [facility] [id number] [facility] 2022-02-02 00:00:00 2022-02-02 00:00:00 Telephone Teagan Chase [facility] 1.2840.114 350.1.13.10 4.2.7.2.686 [id number] 134 [id number] [facility] 2022-01-28 00:00:00 2022-01-28 00:00:00 Telephone Teagan Chase [facility] 1.284.114 350.1.13.10 4.2.7.2.686 [id number] 134 [id number] [facility] 2022-01-27 11:00:00 2022-01-27 11:00:00 Outpatient P [facility] [id number] [facility] 2022-01-19 11:45:00 2022-01-19 12:00:00 Candy Polisher Visit 2, Adc Lab Teagan Chase [facility] 1.2840.114 350.1.13.10 4.2.7.2.686 [id number] [facility] 2022-01-19 11:45:00 2022-01-19 11:45:00 Outpatient R TEAAGN CHASE [facility] [id number] [facility] 2022-01-19 00:00:00 2022-01-19 00:00:00 Orders Only Doctor Unassigned, [place] [facility] 1.0.114 350.1.13.10 4.2.7.2.686 [id number] [facility] 2022-01-12 09:30:00 2022-01-12 09:30:00 Outpatient R [facility] [id number] [facility] 2022-01-05 14:30:00 2022-01-05 15:56:35 Outpatient R TEAGAN CHASE [facility] [id number] [facility] 2022-01-05 14:30:00 2022-01-05 15:56:35 Initial Visit Teagan Chase [facility] 1..840.114 350.1.13.10 4.2.7.2.686 [id number] 134 [id number] [facility] 2022-01-05 00:00:00 2022-01-05 00:00:00 Orders Only Doctor Unassigned, [place] [facility] 1.840.114 350.1.13.10 4.2.7.2.686 [id number] [id number] [facility] 2022-01-05 00:00:00 2022-01-05 00:00:00 Refill Teagan Chase [facility] 1.2840.114 350.1.13.10 4.2.7.2.686 [id number] 134 [id number] [facility] 2021-07-10 01:58:00 2021-07-10 03:05:00 Emergency X NICOL SANCHES [facility] ERT [id number] [facility] 2021-07-10 01:58:00 2021-07-10 03:05:00 Emergency Nicol Sanches [facility] 1.84.114 350.1.13.10 4.2.7.2.686 [id number] [facility] 2021-06-04 09:30:00 2021-06-04 09:30:00 Outpatient R TEAGAN CHASE [facility] [id number] [facility] 2021-04-10 15:30:00 2021-04-10 15:30:00 Outpatient R TEAGAN CHASE [facility] [id number] [facility] 2021-04-07 00:00:00 2021-04-07 00:00:00 Telephone Teagan Chase [facility] 1.2.840.114 350.1.13.10 4.2.7.2.686 [id number] 134 [id number] [facility] 2021-01-01 13:00:00 2021-01-01 13:00:00 Outpatient R TEAGAN CHASE [facility] [id number] [facility] 2020-12-12 09:30:00 2020-12-12 09:30:00 [id number] 2020-12-04 10:53:43 2020-12-04 11:41:09 Routine [facility] 1.2.840.114 350.1.13.10 4.2.7.2.686 [id number] 134 [id number] [facility] 2020-12-04 11:15:00 2020-12-04 11:15:00 Outpatient R TEAGAN CHASE [facility] [id number] [facility] 2020-11-14 11:15:00 2020-11-14 11:15:00 Outpatient R CAREY SALGADO [facility] [id number] [facility] 2020-11-11 15:03:52 2020-11-11 15:58:53 Routine Visit Teagan Chase [facility] Profess[facility] nal Building 1.2.840.114 350.1.13.10 4.2.7.2.686 [id number] 134 [id number] [facility] 2020-11-11 13:15:00 2020-11-11 13:15:00 [facility] [id number] [facility] 2020-11-11 00:00:00 2020-11-11 00:00:00 Telephone Teagan Chase [facility] Building 1.2.840.114 350.1.13.10 4.2.7.2.686 [id number] 134 [id number] [facility] 2020-11-11 00:00:00 2020-11-11 00:00:00 Refill Teagan Chase [facility] 1.2.840.114 350.1.13.10 4.2.7.2.686 [id number] 134 [id number] [facility] 2020-11-09 12:42:00 2020-11-09 15:33:00 Emergency WheelerJames [facility] 1.2.840.114 350.1.13.10 4.2.7.2.686 [id number] 084 [id number] [facility] 2020-11-06 05:26:00 2020-11-08 11:42:00 Hospital Encounter Teagan Chase [facility] 1.2.840.114 350.1.13.10 4.2.7.2.686 [id number] [facility] 2020-11-06 08:15:00 2020-11-06 09:37:00 Surgery Teagan Chase [facility] 1.2.840.114 350.1.13.10 4.2.7.2.686 [id number] [facility] 2020-11-06 05:26:00 2020-11-06 05:26:00 Outpatient P TEAGAN CHASE [facility] [id number] [facility] 2020-11-06 00:00:00 2020-11-06 00:00:00 Orders Only Doctor Unassigned, [place] [facility] 1.2.840.114 350.1.13.10 4.2.7.2.686 [id number] [facility] 2020-11-05 15:31:18 2020-11-05 15:46:18 Laboratory Only Only, Adc Test Teagan Chase [facility] 1.2.840.114 350.1.13.10 4.2.7.2.686 [id number] [facility] 2020-11-05 15:26:27 2020-11-05 15:41:27 Candy Polisher Visit Pob, Adc Lab Main [facility]agan [facility] Building 1.2840.114 350.1.13.10 4.2.7.2.686 [id number] [facility] 2020-11-05 14:11:04 2020-11-05 15:10:39 Routine Visit Teagan Chase [facility] Building 1.20.114 350.1.13.10 4.2.7.2.686 [id number] 134 [id number] [facility] 2020-11-05 14:15:00 2020-11-05 14:15:00 Outpatient R TEAGAN CHASE [facility] [id number] [facility] 2020-11-05 00:00:00 2020-11-05 00:00:00 Orders Only Doctor Unassigned, [place] [facility] 1.20.114 350.1.13.10 4.2.7.2.686 [id number] [facility] 2020-11-01 14:56:29 2020-11-01 15:41:29 Candy Polisher Visit Ultrasound, Adc [facility] Jonnie Keller [facility] Building 1.2840.114 350.1.13.10 4.2.7.2.686 [id number] 134 [id number] [facility] 2020-11-01 15:15:00 2020-11-01 15:15:00 Outpatient P [facility] [id number] [facility] 2020-10-28 13:45:00 2020-10-28 13:45:00 Outpatient R TEAGAN CHASE [facility] [id number] [facility] 2020-10-23 00:00:00 2020-10-23 00:00:00 Patient Secure Msg Doctor Unassigned, [place] [facility] 1.2.840.114 350.1.13.10 4.2.7.2.686 [id number] 134 [id number] [facility] 2020-10-22 09:30:00 2020-10-22 09:30:00 Outpatient R [facility] [id number] [facility] 2020-10-21 15:46:34 2020-10-21 17:26:14 Routine Visit Teagan Chase [facility] 1.2.840.114 350.1.13.10 4.2.7.2.686 [id number] 134 [id number] [facility] 2020-10-21 16:15:00 2020-10-21 16:15:00 Outpatient R TEAGAN CHASE [facility] [id number] [facility] 2020-10-21 00:00:00 2020-10-21 00:00:00 Orders Only Doctor Unassigned, [place] [facility] 1.2.840.114 350.1.13.10 4.2.7.2.686 [id number] [facility] 2020-09-30 16:00:00 2020-09-30 16:00:00 Outpatient R TEAGAN CHASE [facility] [id number] [facility] 2020-08-14 10:30:00 2020-08-14 10:30:00 Outpatient R CAREY SALGADO [facility] [id number] [facility] 2020-08-08 14:00:00 2020-08-08 14:00:00 Outpatient R TEAGAN CHASE [facility] [id number] [facility] 2020-07-19 14:00:00 2020-07-19 14:00:00 Outpatient P [facility] [id number] [facility] 2020-07-17 14:45:00 2020-07-17 14:45:00 Outpatient R TEAGAN CHASE [facility] [id number] [facility] 2020-07-10 11:00:00 2020-07-10 11:00:00 Outpatient TEAGAN PEREZ [facility] [id number] [facility] 2020-07-03 00:00:00 2020-07-03 00:00:00 Patient Secure Msg Doctor Unassigned, [place] [facility] 1.2.840.114 350.1.13.10 4.2.7.2.686 [id number] 134 [id number] [facility] 2020-06-28 10:00:00 2020-06-28 10:00:00 Outpatient R [facility] [id number] [facility] 2020-06-12 09:30:00 2020-06-12 09:30:00 Outpatient Jad CAREY SALGADO [facility] [id number] [facility] 2020-05-21 00:00:00 2020-05-21 00:00:00 Outpatient TEAGAN PEREZ [facility] [id number] [facility] 2020-05-15 10:00:00 2020-05-15 10:00:00 Outpatient TEAGAN PEREZ [facility] [id number] [facility] 2020-04-18 09:00:00 2020-04-18 09:00:00 Outpatient TEAGAN PEREZ [facility] [id number] [facility] Results Test Description Test Time Test Comments Results Result Co mments Source [facility] IMMUNE [id number] 15:14:24* Test Item Value Reference Range Interpretation Comme nts RHIG CANDIDATE? (test code = 5188) No- see comment Patient is not a candidate for RhIg- Patient is Rh Positive.Performed at [facility] Laboratory Services - [facility] Blood [address] [place], [place] [id number] Free: [phone] No. [id number] [facility] ([facility]) IMMUNE [id number] 15:14:24* Test Item Value Reference Range Interpretation Comme [facility] RHIG CANDIDATE? (test code = 5188) No- see comment Patient is not a candidate for RhIg- Patient is Rh Positive.Performed at [facility] Laboratory Services - [facility] Blood [address] [place] [id number] Free: [phone] No. [id number] [facility] URINALYSIS W/O SPECIFIC [id number] 15:16:00* Test Item Value Reference Range Interpretation Comme nts POCT PH U (test code = 3254) n/a 5-8 POCT U LEUK EST (test code = 3263) n/a Negative - Negative POCT U NIT (test code = 3262) n/a Negative - Negati ve POCT U PROT (test code = 3259) negative Negative - Negat rivera POCT U GLU (test code = 3256) negative Negative - Negati ve POCT U KETONE (test code = 3258) n/a Negative - Neg ative POCT U BLD (test code = 3257) n/a Negative - Negati ve [facility] URINALYSIS W/O SPECIFIC [id number] 19:15:00* Test Item Value Reference Range Interpretation Comme nts POCT PH U (test code = 3254) n/a 5-8 POCT U LEUK EST (test code = 3263) n/a Negative - N egative POCT U NIT (test code = 3262) n/a Negative - Negati ve POCT U PROT (test code = 3259) neg Negative - Negat rivera POCT U GLU (test code = 3256) neg Negative - Negati ve POCT U KETONE (test code = 3258) n/a Negative - Neg ative POCT U BLD (test code = 3257) n/a Negative - Negati ve [facility] URINALYSIS W/O SPECIFIC [id number] 21:42:00* Test Item Value Reference Range Interpretation Comme nts POCT PH U (test code = 3254) n/a 5-8 POCT U LEUK EST (test code = 3263) n/a Negative - Negative POCT U NIT (test code = 3262) n/a Negative - Negati ve POCT U PROT (test code = 3259) Negative Negative - Negat rivera POCT U GLU (test code = 3256) Normal Negative - Negati ve POCT U KETONE (test code = 3258) n/a Negative - Neg ative POCT U BLD (test code = 3257) n/a Negative - Negati ve [facility] URINALYSIS W/O SPECIFIC [id number] 21:42:00* Test Item Value Reference Range Interpretation Comme nts POCT PH U (test code = 3254) n/a 5-8 POCT U LEUK EST (test code = 3263) n/a Negative - Negative POCT U NIT (test code = 3262) n/a Negative - Negati ve POCT U PROT (test code = 3259) Negative Negative - Negat rivera POCT U GLU (test code = 3256) Normal Negative - Negati ve POCT U KETONE (test code = 3258) n/a Negative - Neg ative POCT U BLD (test code = 3257) n/a Negative - Negati ve [facility] URINALYSIS W/O SPECIFIC [id number] 21:42:00* Test Item Value Reference Range Interpretation Comme nts POCT PH U (test code = 3254) n/a 5-8 POCT U LEUK EST (test code = 3263) n/a Negative - Negative POCT U NIT (test code = 3262) n/a Negative - Negati ve POCT U PROT (test code = 3259) Negative Negative - Negat rivera POCT U GLU (test code = 3256) Normal Negative - Negati ve POCT U KETONE (test code = 3258) n/a Negative - Neg ative POCT U BLD (test code = 3257) n/a Negative - Negati ve [facility] URINALYSIS W/O SPECIFIC [id number] 21:31:00* Test Item Value Reference Range Interpretation Comme nts POCT PH U (test code = 3254) N/A 5-8 POCT U LEUK EST (test code = 3263) N/A Negative - N egative POCT U NIT (test code = 3262) N/A Negative - Negati ve POCT U PROT (test code = 3259) NEG Negative - Negat rivera POCT U GLU (test code = 3256) NEG Negative - Negati ve POCT U KETONE (test code = 3258) N/A Negative - Neg ative POCT U BLD (test code = 3257) N/A Negative - Negati ve [facility] [id number] 21:31:00* Test Item Value Reference Range Interpretation Comme nts POCT PREG (test code = 1605) Positive On board controls acceptable with C Line (test code = 3574) Yes POCT PREG LOT # (test code = 3575) POCT PREG TEST DATE ( test code = 3576) [facility] [id number] 21:31:00* Test Item Value Reference Range Interpretation Comme nts POCT PREG (test code = 1605) Positive On board controls acceptable with C Line (test code = 3574) Yes POCT PREG LOT # (test code = 3575) POCT PREG TEST DATE ( test code = 3576) [facility] [id number] 21:31:00* Test Item Value Reference Range Interpretation Comme nts POCT PREG (test code = 1605) Positive On board controls acceptable with C Line (test code = 3574) Yes POCT PREG LOT # (test code = 3575) POCT PREG TEST DATE ( test code = 3576) [facility] URINALYSIS W/O SPECIFIC [id number] 21:30:00* Test Item Value Reference Range Interpretation Comme nts POCT PH U (test code = 3254) n/a 5-8 POCT U LEUK EST (test code = 3263) n/a Negative - Negative POCT U NIT (test code = 3262) n/a Negative - Negati ve POCT U PROT (test code = 3259) negative Negative - Negat rivera POCT U GLU (test code = 3256) negative Negative - Negati ve POCT U KETONE (test code = 3258) n/a Negative - Neg ative POCT U BLD (test code = 3257) n/a Negative - Negati ve [facility] UR[facility] W/O SPECIFIC [id number] 21:30:00* Test Item Value Reference Range Interpretation Comme nts POCT PH U (test code = 3254) n/a 5-8 POCT U LEUK EST (test code = 3263) n/a Negative - Negative POCT U NIT (test code = 3262) n/a Negative - Negati ve POCT U PROT (test code = 3259) negative Negative - Negat rivera POCT U GLU (test code = 3256) negative Negative - Negati ve POCT U KETONE (test code = 3258) n/a Negative - Neg ative POCT U BLD (test code = 3257) n/a Negative - Negati ve [facility]/O SPECIFIC [id number] 21:30:00* Test Item Value Reference Range Interpretation Comme nts POCT PH U (test code = 3254) n/a 5-8 POCT U LEUK EST (test code = 3263) n/a Negative - Negative POCT U NIT (test code = 3262) n/a Negative - Negati ve POCT U PROT (test code = 3259) negative Negative - Negat rivera POCT U GLU (test code = 3256) negative Negative - Negati ve POCT U KETONE (test code = 3258) n/a Negative - Neg ative POCT U BLD (test code = 3257) n/a Negative - Negati ve [facility] ABDOMEN PELVIS W [id number] 19:53:12Postoperative appearance of section. Trace pneumoperitoneum andsmall amount of free fluid in the pelvis with blood density are consistentwith the expected postoperative changes. No large hematoma or evidence ofactive hemorrhage. Preliminary Report Dictated by Resident: Eugenio Pineda MD., have reviewed this study and agree with the abovereport.EXAM: CT ABDOMEN/PELVIS WITH CONTRAST HISTORY: ?Wound dehiscence. Lower abdominal hematoma from c section scar COMPARISON: Noneavailable TECHNIQUE AND FINDINGS: Contiguous axial imaging from the level of the lungbases through the proximal thighs was performed after the administration of120 ?cc of intravenous Omnipaque contrast. Coronal and sagittalreconstructions were obtained. ?Auto mA and/or iterative reconstructionwere used to reduce radiation dose. FINDINGS: LOWER THORAX: The lungs bases are clear. No cardiomegaly. LIVER: No focal hepatic lesions. ?Normal contour. GALLBLADDER AND BILIARY TREE: No biliary ductal dilation. ?No gallbladderwall thickening. SPLEEN: No splenomegaly. PANCREAS: No ductal dilation or masses. ADRENAL GLANDS: No adrenal nodules. KIDNEYS: Bilateral symmetrical enhancement. No hydronephrosis, stones, ormasses. GI TRACT: No dilation or wall thickening. PELVIS/BLADDER: Enlarged uterus with and changes. PERITONEUM AND RETROPERITONEUM: Pneumoperitoneum, small volume. Smallamount of free fluid in the pelvis with average Hounsfield unit sonfublvshi77-34 between the uterus and the urinary bladder. LYMPH NODES: No lymphadenopathy. VESSELS: Unremarkable. BONES AND SOFT TISSUES: No suspicious lytic or sclerotic bony lesions.Postoperative changes of fat stranding in the lower anterior abdominal walland foci of air. [facility], Radiant Results Inft User - 11/09/2020 2:54 PM CDT EXAM: CT ABDOMEN/PELVIS WITH CONTRASTHISTORY: Wound dehiscence. Lower abdominal hematoma from c section scar COMPARISON: None availableTECHNIQUE AND FINDINGS: Contiguous axial imaging from the level of the lungbases through the proximal thighs was performed after the administration of120 cc of intravenous Omnipaque contrast. Coronal and sagittalreconstructions were obtained. Auto mA and/or iterative reconstructionwere used to reduce r adiation dose.FINDINGS:LOWER THORAX: The lungs bases are clear. No cardiomegaly.LIVER: No focal hepatic lesions. Normal contour.GALLBLADDER AND BILIARY TREE: No biliary ductal dilation. No gallbladderwall thickening.SPLEEN: No splenomegaly.PANCREAS: No ductal dilation or masses.ADRENAL GLANDS: No ad renal nodules.KIDNEYS: Bilateral symmetrical enhancement. No hydronephrosis, stones, ormasses.GI TRACT: No dilation or wall thickening.PELVIS/BLADDER: Enlarged uterus with and changes.PERITONEUM AND RETROPERITONEUM: Pneumoperitoneum, small volume. Smallamount of free fluid in th e pelvis with average Hounsfield unit gdiymnptuba22-41 between the uterus and the urinary bladder. LYMPH NODES: No lymphadenopathy.VESSELS: Unremarkable.BONES AND SOFT TISSUES: No suspicious lytic orsclerotic bony lesions.Postoperative changes of fat stranding in the lower anterior abdominal walland foci of air.IMPRESSIONPostoperative appearance of section. Trace pneumoperitoneum andsmall amount of free fluid in the pelvis with blood density are consistentwith the expected postoperative changes. No large hematoma or evidence ofactive hemorrhage.Preliminary Report Dictated by Resident: Rubia Bui, Eugenio Garcia MD., have reviewed this study and agree with the abovereport.[facility] ParkwayACTIVATED PARTIAL THRMPLAS BLANCA 2020-11-09 18:21:53* Test Item Value Reference Range Interpretation Comme [facility] APTT Patient (test code = 3173-2) See_Comment [Automated message] The system which generated this result transmitted reference range: 23 - 38 Seconds. The reference range was not used to interpret this result as normal/abnormal. THALIA (test code = THALIA) The [facility] patient population mean normal value for aPTT is 30 seconds. Lab Interpretation (test code = 75289-2) Normal [facility] ParkwayPROTHROMBIN TIME / [id number] 18:19:51* Test Item Value Reference Range Interpretation Comme [facility] PROTIME PATIENT (test code = 5964-2) See_Comment [Automated [employer]] The system which generated this result transmitted reference range: 12.0 - 14.7 Seconds. The reference range was not used to interpret this result as normal/abnormal. INR (test code = 6301-6) Normal INR <1.1; Warfarin Therapeutic range 2.0 to 3.0 or 2.5 to 3.5, depending upon the indications. Lab Interpretation (test code = 64627-6) Normal [facility] ParkwayCBC WITH LUET8568-55-78 18:09:31* Test Item Value Reference Range Interpretation Comme [facility] WBC (test code = 6690-2) See_Comment [Automated [employer]] The system which generated this result transmitted reference range: 4.30 - 11.10 10*3/?L. The reference range was not used to interpret this result as normal/abnormal. RBC (test code = 789-8) See_Comment L [Automated messa ge] The system which generated this result transmitted reference range: 3.93 - 5.25 10*6/?L. The reference range was not used to interpret this result as normal/abnormal. HGB (test code = 718-7) 8.4 g/dL 11.6-15.0 L HCT (test code = 4544-3) 26.4 % 35.7-45.2 L MCV (test code = 787-2) 77.9 fL 80.6-95.5 L MCH (test code = 785-6) 24.8 pg 25.9-32.8 L MCHC (test code = 786-4) 31.8 g/dL 31.6-35.1 RDW-SD (test code = 62232-1) 46.0 fL 39.0-49.9 RDW-CV (test code = 788-0) 16.5 % 12.0-15.5 H PLT (test code = 777-3) See_Comment [Automated messa ge] The system which generated this result transmitted reference range: 166 - 358 10*3/?L. The reference range was not used to interpret this result as normal/abnormal. MPV (test code = 60518-5) 8.9 fL 9.5-12.9 L NRBC/100 WBC (test code = 4496702994) See_Comment [Automated [employer] ssage] The system which generated this result transmitted reference range: 0.0 - 10.0 /100 WBCs. The reference range was not used to interpret this result as normal/abnormal. NRBC x10^3 (test code = 0245981671) <0.01 See_Comment [Automated messa ge] The system which generated this result transmitted reference range: 10*3/?L. The reference range was not used to interpret this result as normal/abnormal. GRAN MAT (NEUT) % (test code = 770-8) 71.3 % IMM GRAN % (test code = 2132466829) 0.40 % LYMPH % (test code = 736-9) 19.0 % MONO % (test code = 5905-5) 7.0 % EOS % (test code = 713-8) 1.7 % BASO % (test code = 706-2) 0.6 % GRAN MAT x10^3(ANC) (test code = 0490283718) 3.68 10*3/uL 1.88-7.09 IMM GRAN x10^3 (test code = 5729961753) <0.03 0.00-0.06 LYMPH x10^3 (test code = 731-0) 0.98 10*3/uL 1.32-3.29 L MONO x10^3 (test code = 742-7) 0.36 10*3/uL 0.33-0.92 EOS x10^3 (test code = 711-2) 0.09 10*3/uL 0.03-0.39 BASO x10^3 (test code = 704-7) 0.03 10*3/uL 0.01-0.07 Lab Interpretation (test code = 50048-5) Abnormal [facility] with Ygapappokwlr7114-95-58 12:19:04* Test Item Value Reference Range Interpretation Comme nts WBC (test code = 6690-2) See_Comment [Automated messa ge] The system which generated this result transmitted reference range: 4.30 - 11.10 10*3/?L. The reference range was not used to interpret this result as normal/abnormal. RBC (test code = 789-8) See_Comment L [Automated messa ge] The system which generated this result transmitted reference range: 3.93 - 5.25 10*6/?L. The reference range was not used to interpret this result as normal/abnormal. HGB (test code = 718-7) 6.5 g/dL 11.6-15.0 L HCT (test code = 4544-3) 20.1 % 35.7-45.2 L MCV (test code = 787-2) 77.6 fL 80.6-95.5 L MCH (test code = 785-6) 25.1 pg 25.9-32.8 L MCHC (test code = 786-4) 32.3 g/dL 31.6-35.1 RDW-SD (test code = 33772-1) 45.0 fL 39.0-49.9 RDW-CV (test code = 788-0) 16.1 % 12.0-15.5 H PLT (test code = 777-3) See_Comment [Automated messa ge] The system which generated this result transmitted reference range: 166 - 358 10*3/?L. The reference range was not used to interpret this result as normal/abnormal. MPV (test code = 95835-5) 10.0 fL 9.5-12.9 NRBC/100 WBC (test code = 2787280469) See_Comment [Automated [employer] ssage] The system which generated this result transmitted reference range: 0.0 - 10.0 /100 WBCs. The reference range was not used to interpret this result as normal/abnormal. NRBC x10^3 (test code = 0913615832) <0.01 See_Comment [Automated [employer] ge] The system which generated this result transmitted reference range: 10*3/?L. The reference range was not used to interpret this result as normal/abnormal. GRAN MAT (NEUT) % (test code = 770-8) 74.6 % IMM GRAN % (test code = 7613608660) 0.40 % LYMPH % (test code = 736-9) 18.1 % MONO % (test code = 5905-5) 6.2 % EOS % (test code = 713-8) 0.4 % BASO % (test code = 706-2) 0.3 % GRAN MAT x10^3(ANC) (test code = 5148649851) 6.98 10*3/uL 1.88-7.09 IMM GRAN x10^3 (test code = 7028659545) 0.04 10*3/uL 0.00-0.06 LYMPH x10^3 (test code = 731-0) 1.70 10*3/uL 1.32-3.29 MONO x10^3 (test code = 742-7) 0.58 10*3/uL 0.33-0.92 EOS x10^3 (test code = 711-2) 0.04 10*3/uL 0.03-0.39 BASO x10^3 (test code = 704-7) 0.03 10*3/uL 0.01-0.07 Lab Interpretation (test code = 46230-1) Abnormal [facility] with Yripzldlnuiq6837-64-60 12:19:04* Test Item Value Reference Range Interpretation Comme nts WBC (test code = 6690-2) See_Comment [Automated messa ge] The system which generated this result transmitted reference range: 4.30 - 11.10 10*3/?L. The reference range was not used to interpret this result as normal/abnormal. RBC (test code = 789-8) See_Comment L [Automated messa ge] The system which generated this result transmitted reference range: 3.93 - 5.25 10*6/?L. The reference range was not used to interpret this result as normal/abnormal. HGB (test code = 718-7) 6.5 g/dL 11.6-15.0 L HCT (test code = 4544-3) 20.1 % 35.7-45.2 L MCV (test code = 787-2) 77.6 fL 80.6-95.5 L MCH (test code = 785-6) 25.1 pg 25.9-32.8 L MCHC (test code = 786-4) 32.3 g/dL 31.6-35.1 RDW-SD (test code = 80021-0) 45.0 fL 39.0-49.9 RDW-CV (test code = 788-0) 16.1 % 12.0-15.5 H PLT (test code = 777-3) See_Comment [Automated messa ge] The system which generated this result transmitted reference range: 166 - 358 10*3/?L. The reference range was not used to interpret this result as normal/abnormal. MPV (test code = 51094-3) 10.0 fL 9.5-12.9 NRBC/100 WBC (test code = 3036602440) See_Comment [Automated [employer] ssage] The system which generated this result transmitted reference range: 0.0 - 10.0 /100 WBCs. The reference range was not used to interpret this result as normal/abnormal. NRBC x10^3 (test code = 3551434894) <0.01 See_Comment [Automated messa ge] The system which generated this result transmitted reference range: 10*3/?L. The reference range was not used to interpret this result as normal/abnormal. GRAN MAT (NEUT) % (test code = 770-8) 74.6 % IMM GRAN % (test code = 0849238488) 0.40 % LYMPH % (test code = 736-9) 18.1 % MONO % (test code = 5905-5) 6.2 % EOS % (test code = 713-8) 0.4 % BASO % (test code = 706-2) 0.3 % GRAN MAT x10^3(ANC) (test code = 4819961245) 6.98 10*3/uL 1.88-7.09 IMM GRAN x10^3 (test code = 8845975562) 0.04 10*3/uL 0.00-0.06 LYMPH x10^3 (test code = 731-0) 1.70 10*3/uL 1.32-3.29 MONO x10^3 (test code = 742-7) 0.58 10*3/uL 0.33-0.92 EOS x10^3 (test code = 711-2) 0.04 10*3/uL 0.03-0.39 BASO x10^3 (test code = 704-7) 0.03 10*3/uL 0.01-0.07 Lab Interpretation (test code = 59177-0) Abnormal [facility] (D) IMMUNE IQFLIQWL9815-35-89 16:59:46* Test Item Value Reference Range Interpretation Comme nts RHIG CANDIDATE? (test code = 5055) No- see comment Patient is not a candidate for RhIg- Patient is Rh Positive.Performed at [facility] Laboratory Services [facility] Blood [address] [place] [address] Free: [phone] No. [id number] [facility] (D) IMMUNE YYGBLCJV7717-90-08 16:59:46* Test Item Value Reference Range Interpretation Comme nts RHIG CANDIDATE? (test code = 5055) No- see comment Patient is not a candidate for RhIg- Patient is Rh Positive.Performed at [facility] Laboratory [facility] Blood [address] [place] [address]Beqs Free: [phone] No. [id number] [facility] Cord Lsm9397-30-94 15:05:00* Test Item Value Reference Range Interpretation Comme nts VENOUS BASE EXCESS, CORD (test code = 2019556001) mEq/L VENOUS PH, CORD (test code = 2529881609) 7.25-7.45 VENOUS PC02, CORD (test code = 6422499606) See_Comment [Automated messa ge] The system which generated this result transmitted reference range: 27 - 49 mmHg. The reference range was not used to interpret this result as normal/abnormal. VENOUS PO2, CORD (test code = 3592480439) See_Comment [Automated me ssage] The system which generated this result transmitted reference range: 17 - 41 mmHg. The reference range was not used to interpret this result as normal/abnormal. VENOUS BICARBONATE, CORD (test code = 8043258928) See_Comment [Automated messa ge] The system which generated this result transmitted reference range: 12 - 29 mEq/L. The reference range was not used to interpret this result as normal/abnormal. [facility] Cord Ojp2535-35-75 15:05:00* Test Item Value Reference Range Interpretation Comme nts VENOUS BASE EXCESS, CORD (test code = 8029971725) mEq/L VENOUS PH, CORD (test code = 9449307983) 7.25-7.45 VENOUS PC02, CORD (test code = 1204454289) See_Comment [Automated messa ge] The system which generated this result transmitted reference range: 27 - 49 mmHg. The reference range was not used to interpret this result as normal/abnormal. VENOUS PO2, CORD (test code = 1611597948) See_Comment [Automated me ssage] The system which generated this result transmitted reference range: 17 - 41 mmHg. The reference range was not used to interpret this result as normal/abnormal. VENOUS BICARBONATE, CORD (test code = 5296579851) See_Comment [Automated messa ge] The system which generated this result transmitted reference range: 12 - 29 mEq/L. The reference range was not used to interpret this result as normal/abnormal. [facility] Cord Tal3321-94-84 14:34:56* Test Item Value Reference Range Interpretation Comme nts BASE EXCESS, CORD (test code = 9526012070) mEq/L AC PH, CORD (BEAKER) (test code = 5392952719) 7.18-7.38 PC02, CORD (test code = 4455913295) See_Comment [Automated messa ge] The system which generated this result transmitted reference range: 32 - 66 mmHg. The reference range was not used to interpret this result as normal/abnormal. PO2, CORD (test code = 6041171329) See_Comment [Automated messa ge] The system which generated this result transmitted reference range: 10 - 30 mmHg. The reference range was not used to interpret this result as normal/abnormal. BICARBONATE, CORD (test code = 8928532392) See_Comment [Automated messa ge] The system which generated this result transmitted reference range: 17 - 27 mEq/L. The reference range was not used to interpret this result as normal/abnormal. [facility] ParkwayArterial Cord Ire2129-19-64 14:34:56* Test Item Value Reference Range Interpretation Comme nts BASE EXCESS, CORD (test code = 4615603676) mEq/L AC PH, CORD (BEAKER) (test code = 2658657525) 7.18-7.38 PC02, CORD (test code = 5801641049) See_Comment [Automated messa ge] The system which generated this result transmitted reference range: 32 - 66 mmHg. The reference range was not used to interpret this result as normal/abnormal. PO2, CORD (test code = 5806254537) See_Comment [Automated messa ge] The system which generated this result transmitted reference range: 10 - 30 mmHg. The reference range was not used to interpret this result as normal/abnormal. BICARBONATE, CORD (test code = 4849327035) See_Comment [Automated messa ge] The system which generated this result transmitted reference range: 17 - 27 mEq/L. The reference range was not used to interpret this result as normal/abnormal. [facility] URINALYSIS W/O SPECIFIC IPDQSOL0588-60-04 19:30:00* Test Item Value Reference Range Interpretation Comme nts POCT PH U (test code = 3254) n/a 5-8 POCT U LEUK EST (test code = 3263) n/a Negative - N egative POCT U NIT (test code = 3262) n/a Negative - Negati ve POCT U PROT (test code = 3259) neg Negative - Negat rivera POCT U GLU (test code = 3256) neg Negative - Negati ve POCT U KETONE (test code = 3258) n/a Negative - Neg ative POCT U BLD (test code = 3257) n/a Negative - Negati ve [facility] ParkwayGROUP B STREPTOCOCCUS BY TIR0293-18-75 16:30:26* Test Item Value Reference Range Interpretation Comme nts Group B Streptococcus by PCR (test code = 79118-0) Negative Negative Lab Interpretation (test cod e = 66144-9) Normal [facility] ParkwayGC & CHLAMYDIA AMPLIFIED GDGQD0839-79-16 18:37:52* Test Item Value Reference Range Interpretation Comme nts C. trachomatis Nucleic Acid (test code = 40554-3) Negative Negative N. gonorrhoeae Nucleic Acid (test code = 61650-6) Negative Negative THALIA (test code = THALIA) Lab Interpretation (test cod e = 29938-5) Normal [facility] ParkwayTRICHOMONAS AMPLIFIED YGBPA1013-87-92 18:32:50 * Test Item Value Reference Range Interpretation Comme nts Trichomonas Nucleic Acid (te st code = 46496-4) Negative Negative THALIA (test code = THALIA) Lab Interpretation (test cod e = 92487-4) Normal [facility] ParkwayURINE DRUG (IMMUNOASSAY) - COMPREHENSIVE DRUG RUCJCJ3035-20-00 00:11:29* Test Item Value Reference Range Interpretation Comme nts AMPHET (test code = 7716761171) Negative Negative BERNARDINO U (test code = 9356510477) Negative Negative BENZO U (test code = 0887138366) Negative Negative Cocaine Metabolite (test code = 0187214917) Negative Negative METHADONE (test code = 1179878407) Negative Negative OPIATES (test code = 8804819846) Negative Negative PCP (test code = 9761999196) Negative Negative THC (test code = 1907376635) Presumptive Positive Negative A THALIA (test code = THALIA) Lab Interpretation (test code = 84268-1) Abnormal [facility]>14 WEEKS US CFXDGKT5760-00-91 22:30:30Limited USG for presentation: ?Cephalic Teagan Bam Chase MD ?10/21/2020 ?5:30 [facility]UnChildren[facility] AntonioPOCT URINALYSIS W/O SPECIFIC GRAVITY 2020-10-21 22:01:00* Test Item Value Reference Range Interpretation Comme nts POCT PH U (test code = 3254) n/a 5-8 POCT U LEUK EST (test code = 3263) n/a Negative - N egative POCT U NIT (test code = 3262) n/a Negative - Negati ve POCT U PROT (test code = 3259) neg Negative - Negat rivera POCT U GLU (test code = 3256) neg Negative - Negati ve POCT U KETONE (test code = 3258) n/a Negative - Neg ative POCT U BLD (test code = 3257) n/a Negative - Negati ve Lab Interpretation (test cod e = 99367-0) Normal [facility] Notes Date/Time Note Provider Source 2023-06-04 20:55:25 /AI3I9CCkUNhEL9NqmtzbzlwP2MbjFAuv5WV PtlSQWrCEWzCof7+ME/jC7F3Rn142233-77- 05T20:55:25 Pt cleared for incarceration.Pt verbalized understanding of instructions, pt awake alert oriented, resp reg unlabored, skin w/d, color appropriate for race, moves all ext well,pt encouraged to follow up with pcp.No adverse reaction to meds given in ER noted upon dischargeAwake, alert oriented, resp reg unlabored, skin w/d, pt leaving amb with steady gait with [place] [employer] officer beside her, in no apparent distress, 80752-2Iwleavxyq department UubmGK1538-83-44L12:56:37Emergency department NoteTXT1.2.840.963569.1.13.104.2.7.2 .166193|[id number] for patient tffp05022-5VvilXAWVGGMMYCNCpuhmmzvu C-CDA narrative [id number] Hampton RN[address] Nk[id number] CDCZPGXWKTKXDHTPPLIKWF7234-18-74E90: 56:371.2.840.674906.1.72.3.15|1.2.84 0.860546.1.13.104.2.7.2.727879_20676 77152 Florencia Hampton RN [facility] 2023-06-04 20:25:59 lntfJ9oVxoOuAOPQlWmpB2Z4LA0ZNwaI61P5 j9Zw8eIQh04M2BUm7n6Vc0DYJK3s6992-69- 05T20:25:59 Pt arrived via [facility] in custody with [employer] for medical clearance. Pt was arrested and began having an anxiety attack and stated she wanted to hurt herself.Pt remains in custody with officer at bedside. 54693-2Ktxigcaga department Triage gjosPF9817-15-74B41:27:17Em[facility]iloam [facility] hospitalcy department Triage noteTXT1.2.840.275086.1.13.104.2.7.2 .549132|[id number] for patient pbph33526-3Jpitoxbxg department NoteLNNARRATIVEFormatted C-CDA narrative textUT[address] RiqoTzeydjnshKgookagrzDKEE6099121429 NXAQWEUVLHWSWQQTOAPIBR8274-16-33O81: 27:171.2.840.791963.1.72.3.15|1.2.84 0.542092.1.13.104.2.7.2.727879_20676 0[address]64 [facility] 2023-06-04 20:22:00 hSguwJYvetvNJX4JBGCTCBTqn5RXlpuV8/nM S2tlowWPo7LIYr7AsADMKZlInYlm8284-81- 05T20:22:00 [facility] Emergency Department NotePatient Name: Carrie Grady of : 2000 22 year old femaleTreatment Room: TX3/YP6Dbgsark Record Number: [id number] Care Physician: PATIENT DOES NOT HAVE A PCPPatient Escorted by: Self [9]Mode of Arrival: EMS - [facility] ([place]) [43]EMS Treatment Prior to ED Arrival:MANAGER COMMUNICATION treatment: NoneTravel and Exposure Screening:SymptomsDoes patient have any of these symptoms?: (not recorded)Exposure ScreeningHas patient had contact with someone with a communicable disease in the last month?: (not recorded)Diseases exposed to:: (not recorded)Is Patient ?: (not recorded)Exposure Date: (not recorded)Chief Complaint:Chief ComplaintPatient presents withOtherMedical ClearanceHistory of Present Illness:22 y.o. female brought in by PD for FIT. Patient reports severe anxiety attack at this time. Patient reported to PD that she wanted to hurt self, but denies upon arrival to ED.Past Medical History/Immunizations:Past Medical History:Diagnosis DateAnemia, antepartum, third trimester 11/06/2020V (bacterial vaginosis) 08/07/2020Tetanus received in last 5 years: UnknownAllergies:No Known AllergiesPast Social History:Tobacco UseNever smoked or used smokeless tobacco.Passive Exposure: NeverVaping UseNever usedAlcohol UseNo.Drug UseNot Currently.Sexual ActivitySexually active; Partners: Male; Control/Protection: None.Past Surgical History:Past Surgical History:Procedure Laterality DateCESAREAN SECTION N/A 09/20/2018Surgeon: Teagan Chase MD; Location: [facility] Labor and Delivery OR LocationCESAREAN SECTION N/A 11/06/2020urgeon: Teagan Chase MD; Location: [facility] Labor and Delivery OR LocationCESAREAN SECTION N/A 06/02/2022Surgeon: Teagan Chase MD; Location: [facility] LAB[facility] AND DELIVERY OR LOCATIONReview of Systems:Review of SystemsConstitutional: Negative.HENT: Negative.Eyes: Negative.Respiratory: Negative.Breasts: Negative.Cardiovascular: Negative.Gastrointestinal: Negative.Genitourinary: Negative.Musculoskeletal: Negative.Skin: Negative.Neurological: Negative.Psychiatric/Behavioral: Negative for dysphoric mood, hallucinations, self-injury, sleep disturbance and suicidal ideas. The patient is nervous/anxious. The patient is not hyperactive.Endocrine: Endocrine negativePhysical Exam:ED Triage Vitals [06/04/232028]Weight 72.6 kg (160 lb)Actual or estimated Estimated by patient/family reportHeight 1.6 m (5' 3")BP 130/73Pulse 109Resp 26Temp 37.3 ?C (99.1 ?F)Temp source OralSpO2 97 %Measured on Room airPhysical ExamVitals and nursing note reviewed.Constitutional:General: She is in acute distress.HENT:Head: Normocephalic.Mouth/Throat:Mouth: Mucous membranes are moist.Cardiovascular:Rate and Rhythm: Tachycardia present.Pulmonary:Effort: Pulmonary effort is normal.Skin:General: Skin is warm.Capillary Refill: Capillary refill takes less than 2 seconds.Neurological:General: No focal deficit present.Mental Status: She is alert and oriented to person, place, and time.Psychiatric:Attention and Perception: Attention normal.Mood and Affect: Mood is anxious.Speech: Speech is rapid and pressured.Behavior: Behavior is cooperative.Thought Content: Thought content normal.Cognition and Memory: Cognition and memory normal.Judgment: Judgment normal.Radiology:No orders to displayLab Results:Lab ResultsPOCT TEST - NormalResult Value Ref RangePOCT PREG NegativeOn board controls acceptable with C Line YesPOCT PREG LOT # [id number] PREG TEST DATE 04/07/2024EKG:If EKG completed, see Procedure Note.Orders and Treatments:Orders Placed This EncounterProceduresPOCT TESTOrders Placed This EncounterMedicationsdiazePAM (VALIUM) tablet 10 mgFirst Provider Eval:ED EventsDate/Time Event User Uobtcblg96/05/242040 Medical Screening Begins JAM FREITAS MD --06/04/232040 First Provider Evaluation JAM FREITAS MD --ED COURSEDiagnosis/Impression as of 06/04/232046Medical clearance for incarcerationProcedures:ProceduresMD M:Medical Decision MakingAmount and/or Complexity of Data ReviewedLabs: ordered.RiskPrescription drug management.A) Situational AnxietyDisposition/Condition: FIT, ER warnings, f/u PCPED DispositionNoneDischarge Medications:Patient's MedicationsSTART taking these medicationsNo medications on fileCONTINUE taking these medications which have NOT CHANGEDACETAMINOPHEN 325 MG TABLET Take 2 tablets by mouth every 6 (six) hours as needed for Pain (scale 1-3) or Pain (scale 4-6).DOCUSATE 100 MG CAPSULE Take 2 capsules by mouth once daily as needed for Constipation.FERROUS SULFATE 325 MG (65 MG IRON) TABLET Take 1 tablet by mouth in the morning and 1 tablet in the evening.IBUPROFEN 600 MG TABLET Take 1 tablet by mouth every 6 (six) hours as needed (Pain). Take with food or milk. VITAMIN W/FA TABLET Take 1 tablet by mouth in the morning.START taking Modified Medications as PrescribedNo medications on fileSTOP taking these medicationsNo medications on fileFollow-up: PCPElectronically signed by:Jam Freitas MD06/04/232049 [id number] Emergency department BbndXA5342-06-04F49:50:14Physician Emergency department [id number] .[id number] for patient caxa29538-5Pdxfutxew department NoteLNNARRATIVEFormatted C-CDA narrative textEMCARE EMERGENCY PHYSICIAN STAFFEMCARE EMERGENCY PHYSICIAN STAFF42 [address] StreetFc[id number] CGAYSAUOQHFEEWJFZCZVKQ4904-68-04V35: 50:141.2.840.403688.1.72.3.15|1.2.84 [id number] [facility] STAFF [facility] 2023-04-14 21:03:12 4r4W4tBhdw5LWxEc5PfmaUhgTmx3axpFs3vw zH18ZEZNE3I0LicuHnVxs1HzMj1x0636-10- 14T21:03:12 Pt given printed and verbal discharge instructions regarding sprain of metacarpophalangeal joint of left thumb and pain of left thumb, encouraged hydration,1 Prescriptions sent.Discussed tramadol side affects and to avoid driving/operating machinery/or engaging in activities requiring alertness while taking.Pt verbalized understanding of instructions, pt awake alert oriented, resp reg unlabored, skin w/d, color appropriate for race, moves all ext well,pt encouraged to follow up with pcp and hand surgeryAdvised to seek medical attention for new/prolonged/worsening of symptoms,Symptoms improved.No adverse reaction to meds given in ER noted upon dischargeAwake, alert oriented, resp reg unlabored, skin w/d, pt leaving amb with steady gait, in no apparent distress, 13364-3Mpobdidvx department KyphNT0940-13-38C55:04:29[facility] [id number] .[id number] for patient qczi10065-1OfpxTEJVTQVOJJLHvohawnbl C-CDA narrative [id number] M Felix RNUT57 Tate [id number] VKHADFHNBHDHDPGWKMRPPD1215-92-57E59: 04:291.2.840.964680.1.72.3.15|1.2.84 [id number] 40151 Rocio Stiles RN [facility] 2023-04-14 18:41:28 2uu0sVi2VtMCrjvbaqoZgaSx8TBBDqUUSDDR +kizOlpeA3i9DFbofTjvbDxiRMSB0367-01- 14T18:41:28 Patient states: "I tripped over my kids' toys and landed on my left thumb." [id number] department Triage agevQQ7111-52-01O81:42:28[facility] Triage [id number] .[id number] for patient mjsx40391-7Lrxzlycua department NoteLNNARRATIVEFormatted C-CDA narrative [id number] C Heredia RN42 [address] StreetTb[id number] RSYFPZLICXVCLKNWWRMFVT0110-46-99A13: 42:281.2.840.946311.1.72.3.15|1.2.84 [id number] Lara Bailey RN [facility]
--- NOTE | 2023-06-19 21:46 | RAD REPORT ---
EXAM DESCRIPTION: DAJA - ALEXUS - 06/19/2023 8:45 pm CLINICAL HISTORY: PAIN COMPARISON: No comparisons TECHNIQUE: Left hand, 3 views. FINDINGS: No fracture is identified. There is no dislocation or periosteal reaction noted. Joint alignment is maintained. No foreign body or other soft tissue abnormality. IMPRESSION: Negative left hand examination.
--- NOTE | 2023-06-19 22:01 | ER ---
Nurse's Notes [facility] Name: Carrie Geiger Age: 22 yrs Sex: Female : 2000 Arrival Date: 06/19/2023 Time: 19:41 Bed Treatment Private MD: Diagnosis: Pain in left hand Presentation: 06/18 20:06 Chief complaint: Patient states: I injured my thumb one month ago and still feels like ha1 it is not able to bend all the way. 20:06 Coronavirus screen: Vaccine status: Patient reports being unvaccinated. Ebola Screen: ha No symptoms or risks identified at this time. Initial Sepsis Screen: Does the patient meet any 2 criteria? No. Patient's initial sepsis screen is negative. Does the patient have a suspected source of infection? No. Patient's initial sepsis screen is negative. Risk Assessment: Do you want to hurt yourself or someone else? Patient reports no desire to harm self or others. Onset of symptoms was June 19, 2023. 20:06 Method Of Arrival: Ambulatory 1 20:06 Acuity: ONESIMO 4 ha1 Triage Assessment: 20:06 General: Appears comfortable, Behavior is calm, cooperative. Pain: Complains of pain in ha1 palmar aspect of proximal phalanx of right thumb Pain does not radiate. Pain currently is 2 out of 10 on a pain scale. Quality of pain is described as aching, Aggravated by increased activity. Neuro: Level of Consciousness is awake, alert, obeys commands, Oriented to person, place, time, situation. Cardiovascular: Patient's skin is warm and dry. Respiratory: Airway is patent Respiratory effort is even, unlabored, Respiratory pattern is regular, symmetrical. Musculoskeletal: Circulation, motion, and sensation intact. Reports pain in palmar aspect of proximal phalanx of right thumb. Injury Description: Deformity. 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 - Infectious Disease History:: Denies. - Social history:: Smoking status: Patient denies any tobacco usage or history of. Screenin:36 [facility] ED Fall Risk Assessment (Adult) History of falling in the last 3 months, ha1 including since admission No falls in past 3 months (0 pts) Confusion or Disorientation No (0 pts) Intoxicated or Sedated No (0 pts) Impaired Gait No (0 pts) Mobility Assist Device Used No (0 pt) Altered Elimination No (0 pt) Score/Fall Risk Level 0 - 2 = Low Risk Oriented to surroundings, Maintained a safe environment, Educated pt \T\ family on fall prevention, incl call for assistance when getting out of bed, Hourly rounding (assess needs \T\ fall precautionary measures) done. Abuse screen: Denies threats or abuse. Denies injuries from another. Nutritional screening: No deficits noted. Tuberculosis screening: No symptoms or risk factors identified. Assessment: 20:06 Reassessment: see triage assessment. ha1 21:10 Reassessment: Patient and/or family updated on plan of care and expected duration. Pain ha1 level reassessed. Patient is alert, oriented x 3, equal unlabored respirations, skin warm/dry/pink. 22:19 Reassessment: Patient and/or family updated on plan of care and expected duration. Pain ha1 level reassessed. Patient is alert, oriented x 3, equal unlabored respirations, skin warm/dry/pink. Vital Signs: 20:06 BP 124 / 85; Pulse 74; Resp 17 S; Temp 97.9(T); Pulse Ox 100% on R/A; Weight 72.57 kg; ha1 Height 5 ft. 4 in. ; 21:10 BP 123 / 81; Pulse 69; Resp 17 S; Pulse Ox 100% on R/A; ha1 20:06 Body Mass Index 27.46 (72.57 kg, 162.56 cm) ha1 ED Course: 19:45 Patient arrived in ED. jj6 19:54 Shani Gee FNP-C [facility] kb 19:54 Robin Dunn MD is Attending Physician. kb 20:06 Patient has correct armband on for positive identification. Bed in low position. Call ha1 light in reach. Side rails up X 1. 20:30 Autumn Forte, ANT is Primary Nurse. ha1 20:33 Triage completed. ha1 20:37 Provided Education on: X-ray . ha1 20:37 Arm band placed on right wrist. ha1 20:47 Hand Left 3 View XRAY In Process Unspecified. EDMS 22:19 No provider procedures requiring assistance completed. Patient did not have IV access ha1 during this emergency room visit. Administered Medications: No medications were administered Medication: 20:36 VIS not applicable for this client. ha1 Outcome: 22:00 Discharge ordered by . matheus 22:19 Discharged to home ambulatory, ha1 22:19 Condition: stable 22:19 Discharge instructions given to patient, Instructed on discharge instructions, follow up and referral plans. Demonstrated understanding of instructions, follow-up care, 22:20 Patient left the ED. ha1 Signatures: Dispatcher [employer] EDMS Shani Gee, CHRISTINAC VASCULAR NEUROLOGIST-Kelli Lopez jj6 Autumn Forte, RN RN ha1
--- NOTE | 2023-06-19 22:01 | EDPHYS ---
Physician Documentation [facility] Name: Carrie Geiger Age: 22 yrs Sex: Female : 2000 Arrival Date: 06/19/2023 Time: 19:41 Bed Treatment Private MD: ED Physician Robin uDnn HPI: 06/18 22:10 This 22 yrs old Female presents to ER via Ambulatory with complaints of Thumb kb Injury. 22:10 Patient is a 22-year-old female who reports left thumb pain that started 1 month ago kb after injuring it. States that she still cannot bend it all the way and has tenderness so she wanted to get it checked out while she was here having her child evaluated.. 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 - Infectious Disease History:: Denies. - Social history:: Smoking status: Patient denies any tobacco usage or history of. ROS: 22:10 Constitutional: As per HPI kb Exam: 22:10 Constitutional: This is a well developed, well nourished patient who is awake, alert, kb and in no acute distress. Head/Face: Normocephalic, atraumatic. ENT: Moist Mucous membranes Cardiovascular: Regular rate Respiratory: Respirations even and unlabored. No increased work of breathing. Talking in full sentences Skin: Warm, dry with normal turgor. Normal color. Neuro: Awake and alert, GCS 15, oriented to person, place, time, and situation. Moves all extremities. Normal gait. 22:10 Musculoskeletal/extremity: Extremities: grossly normal except: noted in the dorsal aspect of proximal phalanx of left thumb: pain, tenderness, ROM: limited active range of motion due to pain, Circulation is intact in all extremities. Sensation intact. Vital Signs: 20:06 BP 124 / 85; Pulse 74; Resp 17 S; Temp 97.9(T); Pulse Ox 100% on R/A; Weight 72.57 kg; ha1 Height 5 ft. 4 in. ; 21:10 BP 123 / 81; Pulse 69; Resp 17 S; Pulse Ox 100% on R/A; ha1 20:06 Body Mass Index 27.46 (72.57 kg, 162.56 cm) ha1 MDM: 19:54 Patient medically screened. kb 22:12 Differential diagnosis: contusion, fracture, sprain, strain. Data reviewed: vital kb signs, nurses notes. Counseling: I had a detailed discussion with the patient and/or guardian regarding the historical points, exam findings, and any diagnostic results supporting the discharge/admit diagnosis, radiology results, the need for outpatient follow up, a family practitioner, to return to the emergency department if symptoms worsen or persist or if there are any questions or concerns that arise at home. 06/18 20:14 Order name: Hand Left 3 View XRAY; Complete Time: 21:49 kb Administered Medications: No medications were administered Disposition: 06/19 20:58 Co-signature as Attending Physician, Robin Dunn MD I agree with the assessment sp4 and plan of care. I reviewed the patient's care provided by the Advanced Practice Provider and agree with the diagnosis and treatment plan. Disposition Summary: 06/19/23 22:00 Discharge Ordered Notes: Location: Home kb Condition: Stable kb Diagnosis - Pain in left hand kb Followup: kb - With: Emergency Department - When: As needed - Reason: Worsening of condition Followup: kb - With: Private Physician - When: 2 - 3 days - Reason: Recheck today's complaints, Continuance of care, Re-evaluation by your physician Discharge Instructions: - Discharge Summary Sheet kb - Musculoskeletal Pain kb Forms: - Medication Reconciliation Form kb - Thank You Letter kb - Antibiotic Education kb - Prescription Opioid Use kb - Patient Portal Instructions kb - Leadership Thank You Letter kb Signatures: Dispatcher [employer] Shani Sharpe, CHRISTINAC RAJENDRA-Autumn Nguyen RN RN 1 Robin Dunn MD MD sp4
[2023-06-19 22:45] VITALS: BP 123/81; TEMP 97.9; O2SAT 100
== END 2023-06-19 22:20 | disposition home or self-care (01) ==
LOC: ER 19:41
DX: M79.642 Pain in left hand (principal)
CPT/HCPCS: 99282

== ENCOUNTER 2023-12-22 17:49 | Emergency (ER) | payer OTHER ==
[2023-12-22] MEDS ORDERED: LIDOCAINE 1% MPF 5 ML VIAL ONE (19:32)
[2023-12-22] MEDS ORDERED: SMZ./TMP. 800/160 MG TABLET ONE (19:33)
[2023-12-22] MEDS ORDERED: HYDROCODONE/APAP 10/325 TAB ONE (19:33)
--- NOTE | 2023-12-22 21:02 | EDPHYS ---
Physician Documentation [facility] Name: Carrie Geiger Age: 23 yrs Sex: Female : 2000 Arrival Date: 12/22/2023 Time: 17:49 Bed 16 Private MD: ED Physician Jason Stevenson HPI: 12/21 18:24 This 23 yrs old Female presents to ER via Ambulatory with complaints of kb Abscess. 18:24 Pt is a 23 year old female who presents for abscess to left buttock that started a week kb ago and has gotten worse. Denies fever. . 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 - Infectious Disease History:: Denies. - Social history:: Smoking status: Patient denies any tobacco usage or history of. ROS: 18:24 Constitutional: As per HPI kb Exam: 18:24 Constitutional: This is a well developed, well nourished patient who is awake, alert, kb and in no acute distress. Head/Face: Normocephalic, atraumatic. ENT: Moist Mucous membranes Cardiovascular: Regular rate Respiratory: Respirations even and unlabored. No increased work of breathing. Talking in full sentences Abdomen/GI: Soft, non-tender. No distention MS/ Extremity: Pulses equal, no cyanosis. Neurovascular intact. Full, normal range of motion. Neuro: Awake and alert, GCS 15, oriented to person, place, time, and situation. Vital Signs: 18:20 BP 131 / 86; Pulse 133; Resp 18; Temp 98; Pulse Ox 100% ; Weight 71.67 kg; Height 5 ft. iw 3 in. ; Pain 10/10; 19:05 BP 128 / 79; Pulse 94; Resp 18; Temp 98; Pulse Ox 100% on R/A; Pain 9/10; rg5 20:15 BP 131 / 82; Pulse 97; Resp 16 S; Pulse Ox 100% ; rg5 18:20 Body Mass Index 27.99 (71.67 kg, 160.02 cm) iw 18:20 Pain Scale: Adult iw 19:05 Pain Scale: Adult rg5 Procedures: 21:25 I \T\ D: Incision and drainage was performed for an abscess of the left left gluteus kb isrrael Prepped with Betadine, Anesthetized with 3 ml's 1% Lidocaine. Incised with #11 blade. Drained large amount purulent fluid. Packed with iodoform gauze, Dressing: sterile 4x4 gauze, the patient tolerated the procedure well. MDM: 18:04 Medical Screening Exam initiated kb 18:25 Differential diagnosis: abscess, allergic reaction, cellulitis, insect bite. Data kb reviewed: vital signs, nurses notes. 21:25 Counseling: I had a detailed discussion with the patient and/or guardian regarding the kb historical points, exam findings, and any diagnostic results supporting the discharge/admit diagnosis, the need for outpatient follow up, a general surgeon, to return to the emergency department if symptoms worsen or persist or if there are any questions or concerns that arise at home. 12/21 19:29 Order name: I\T\D Setup; Complete Time: 20:42 kb Administered Medications: 19:31 Drug: [place] PO 10 mg-325 mg 1 tabs PO once Route: PO; rg5 20:41 Follow up: Response: No adverse reaction; Pain is decreased rg5 19:31 Drug: Trimethoprim-Sulfamethoxazole PO (160 mg-800 mg (DS) 1 tablet PO once Route: PO; rg5 20:41 Follow up: Response: No adverse reaction; Pain is decreased rg5 20:41 Drug: Lidocaine Infiltration (1 %) 1 vials 5 ml Infiltration once; to bedside {Note: rg5 injected by provider.} Volume: 5 ml; Route: Infiltration; Disposition Summary: 12/22/23 21:01 Discharge Ordered Notes: Location: Home kb Condition: Stable kb Diagnosis - Cutaneous abscess of buttock kb Followup: kb - With: Emergency Department - When: As needed - Reason: Worsening of condition Followup: kb - With: Private Physician - When: 2 - 3 days - Reason: Recheck today's complaints, Continuance of care, Re-evaluation by your physician Discharge Instructions: - Discharge Summary Sheet kb - Skin Abscess, Ivgr-wb-Gdid kb - Incision and Drainage, Care After kb Forms: - Medication Reconciliation Form kb - Antibiotic Education kb - Prescription Opioid Use kb - Patient Portal Instructions kb - Leadership Thank You Letter kb Prescriptions: - Diclofenac Sodium 75 mg Oral tablet, delayed release (enteric coated) - take 1 tablet ORAL route 2 times per day As needed; 30 tablet; Refills: 0, kb Product Selection Permitted - Bactrim DS 800-160 mg Oral Tablet - take 1 tablet ORAL route every 12 hours for 10 days; 20 tablet; Refills: 0, kb Product Selection Permitted Addendum: 12/25/2023 22:48 Co-signature as Attending Physician, Jason CASTRO I reviewed the patient's care r n provided by the Advanced Practice Provider and agree with the diagnosis and treatment plan. Signatures: Shani Gee, INTERNATIONAL TRADE TEACHER-C INTERNATIONAL TRADE TEACHER-Ckb Destiny Will RN RN iw Nieto, Roman, MD MD rn Gallardo, Rommel, RN RN rg5
--- NOTE | 2023-12-22 21:02 | ER ---
Nurse's Notes [facility] Name: Carrie Geiger Age: 23 yrs Sex: Female : 2000 Arrival Date: 12/22/2023 Time: 17:49 Bed 16 Private MD: Diagnosis: Cutaneous abscess of buttock Presentation: 12/21 18:20 Chief complaint: Patient states: left buttock abscess for a couple days. Coronavirus iw screen: At this time, the client does not indicate any symptoms associated with coronavirus-19. Ebola Screen: No symptoms or risks identified at this time. Initial Sepsis Screen: Does the patient meet any 2 criteria? HR > 90 bpm. Does the patient have a suspected source of infection? No. Patient's initial sepsis screen is negative. Risk Assessment: Do you want to hurt yourself or someone else? Patient reports no desire to harm self or others. Onset of symptoms was December 20, 2023. 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 - Infectious Disease History:: Denies. - Social history:: Smoking status: Patient denies any tobacco usage or history of. Screenin:10 [facility] ED Fall Risk Assessment (Adult) History of falling in the last 3 months, rg5 including since admission No falls in past 3 months (0 pts) Confusion or Disorientation No (0 pts) Intoxicated or Sedated No (0 pts) Impaired Gait No (0 pts) Mobility Assist Device Used No (0 pt) Altered Elimination No (0 pt) Score/Fall Risk Level 0 - 2 = Low Risk Oriented to surroundings, Maintained a safe environment, Hourly rounding (assess needs \T\ fall precautionary measures) done. Abuse screen: Denies threats or abuse. Nutritional screening: No deficits noted. Tuberculosis screening: No symptoms or risk factors identified. Assessment: 19:10 General: Appears in no apparent distress. Behavior is calm, cooperative. rg5 19:10 Pain: Complains of pain in left gluteus isrrael Pain currently is 9 out of 10 on a pain rg5 scale. Quality of pain is described as aching. Neuro: Level of Consciousness is awake, alert, obeys commands, Oriented to person, place, time. Cardiovascular: Heart tones S1 S2 Patient's skin is warm and dry. Respiratory: Airway is patent Trachea midline Respiratory effort is even, Respiratory pattern is regular. GI: Abdomen is round Bowel sounds present X 4 quads. Abd is soft and non tender. : No signs and/or symptoms were reported regarding the genitourinary system. EENT: No deficits noted. Derm: Skin is intact, Skin is dry, Skin is normal, Skin temperature is warm. Musculoskeletal: Circulation, motion, and sensation intact. Range of motion: intact in all extremities. 20:42 Reassessment: Patient and/or family updated on plan of care and expected duration. Pain rg5 level reassessed. Patient is alert, oriented x 3, equal unlabored respirations, skin warm/dry/pink. Patient states symptoms have improved. Vital Signs: 18:20 BP 131 / 86; Pulse 133; Resp 18; Temp 98; Pulse Ox 100% ; Weight 71.67 kg; Height 5 ft. iw 3 in. ; Pain 10/10; 19:05 BP 128 / 79; Pulse 94; Resp 18; Temp 98; Pulse Ox 100% on R/A; Pain 9/10; rg5 20:15 BP 131 / 82; Pulse 97; Resp 16 S; Pulse Ox 100% ; rg5 18:20 Body Mass Index 27.99 (71.67 kg, 160.02 cm) iw 18:20 Pain Scale: Adult iw 19:05 Pain Scale: Adult rg5 ED Course: 17:51 Patient arrived in ED. mr 18:03 Shani Gee FNP-C [facility]. kb 18:03 Jason Stevenson MD is Attending Physician. kb 18:22 Triage completed. iw 18:23 Arm band placed on. iw 19:10 Patient has correct armband on for positive identification. Bed in low position. Side rg5 rails up X 1. 19:10 No provider procedures requiring assistance completed. rg5 19:12 Gomez Guidry, ANT is Primary Nurse. rg5 20:30 Assist provider with I \T\ D: of an abscess on left perirectal area Set up I\T\D tray. rg 5 Performed by Shani PHILLIPS Wound packed. 4X4s. 20:42 Provided Education on: wound care. Door closed. Noise minimized. PO fluids given. rg5 Verbal reassurance given. 21:07 Patient did not have IV access during this emergency room visit. rg5 Administered Medications: 19:31 Drug: [place] PO 10 mg-325 mg 1 tabs PO once Route: PO; rg5 20:41 Follow up: Response: No adverse reaction; Pain is decreased rg5 19:31 Drug: Trimethoprim-Sulfamethoxazole PO (160 mg-800 mg (DS) 1 tablet PO once Route: PO; rg5 20:41 Follow up: Response: No adverse reaction; Pain is decreased rg5 20:41 Drug: Lidocaine Infiltration (1 %) 1 vials 5 ml Infiltration once; to bedside {Note: rg5 injected by provider.} Volume: 5 ml; Route: Infiltration; Medication: 19:10 VIS not applicable for this client. rg5 Outcome: 21:01 Discharge ordered by . matheus 21:06 Discharged to home ambulatory, rg5 21:06 Condition: stable 21:06 Discharge instructions given to patient, Instructed on discharge instructions, follow up and referral plans. Demonstrated understanding of instructions, follow-up care, medications, Prescriptions given X 2, 21:07 Patient left the ED. rg5 Signatures: Shani Gee FNP-C AUTOMATIC SHIRRING MACHINE OPERATOR-Ckb YoderDivine, Reg Reg mr Destiny Will RN RN iw Gallardo, Rommel, RN RN rg5 Corrections: (The following items were deleted from the chart) 18:23 18:20 BP 131 / 86; Resp 18bpm; Pulse Ox 100%; Temp 98F; 71.67 kg; Height 5 ft. 3 in.; iw BMI: 27.9; Pain 10, Adult; iw 20:52 20:42 Wound care: rg5 rg5 20:52 20:42 Wound care: rg5 rg5
[2023-12-23 06:19] VITALS: TEMP 98; O2SAT 100
[2023-12-23 06:24] VITALS: BP 131/82
== END 2023-12-22 21:07 | disposition home or self-care (01) ==
LOC: ER 17:49
PROC: 0H98XZZ Drainage of Buttock Skin, External Approach (ICD-10-PCS; principal; 2023-12-22)
DX: L02.31 Cutaneous abscess of buttock (principal)
CPT/HCPCS: 99284; 10060; J2001; J2003

== ENCOUNTER 2023-12-25 19:27 | Emergency (ER) | payer OTHER ==
--- OUTSIDE RECORDS SUMMARY | 2023-12-25 19:31 | XMS REPORT | Continuity of Care Document ---
Author Name Unknown Address [address] [facility] [address] [place] [address] [facility] thconnect Address [address] [facility] [address] [place] [address] Care Team Providers Care Gunner Mate Name Role Phone PCP, PATIENT DOES NOT HAVE A Primary Care Physic fiordaliza Unavailable PHUONG DELAROSA Attending Clinician Unavailable JAM FREITAS Attending Clinician Unavailable JAM FREITAS Attending Clinician Unavailable James Wheeler MD Attending Clinician [phone] SIDNEY SANTAMARIA Attending Clinician UnavailSIDNEY Augustin Attending Clinician UnavailRAMA Garcia Attending Clinician UnavailRama Bailey Attending Clinician + [phone] Teagan Chase MD Attending Clinician [phone] ROWAN ORTEGA Attending Clinician Unavailable Rowan Ortega MD Attending Clinician [phone] ANYA ISAACS Attending Clinician Unavailable Anya Clark Attending Clinician [phone] TEAGAN CHASE Attending Clinician Unavailable ANGUS QUIÑONEZ Attending Clinician ANGUS Ramsay Attending Clinician Sindi hanna Ultrasound, Adc Mfm Attending Clinician UnavailPenelope Dudley MD Attending Clinician + PENELOPE BELL Attending Clinician Unav ailable Doctor Unassigned, [place] Attending Clinician U navailable 2, Adc Lab Attending Clinician Unavailable Carey Salgado PA-C Attending Clinician [phone] CAREY SALGADO Attending Clinician Unavailable Ultrasound, Ang-Mfm Attending Clinician Unavaila Wesley Koch DO Attending Clinician [phone] NICOL SANCHES Attending Clinician Unavailable Nicol Sanches APN Attending Clinician [phone] Only, Adc Test Attending Clinician Unavailable Pob, Adc Lab Main Attending Clinician Unavailrichar Keller MD, Jonnie Romano Attending Clinician + [phone] ROWAN ORTEGA Admitting Clinician Unavailable RAMA RESENDIZ Admitting Clinician Unavailab TEAGAN Chavez Admitting Clinician Unavailable Rena CASTRO, Teagan Kuhn Admitting Clinician [phone] Payers Payer Name Policy Type Policy Number Effective Date Expirati on Date Source [facility] [id number] 00:00:00 [employer] [id number] 2023 00:00:00 Problems Condition Name Condition Details Condition Category Status Onset Date Resolution Date Last Treatment Date Treating Clinician Comments Source Oligohydra mnios in third trimester, single or unspecifie d fetus Oligohydra mnios in third trimester, single or unspecifie d fetus Disease Active 06-02 00:00: 00 [facility] Status post tubal ligation Status post tubal ligation Disease Active 06-02 00:00: 00 [facility] Anemia of mother in , antepartum Anemia of mother in , antepartum Disease Active 3-20 00:00: 00 [facility] Anemia of mother in , antepartum Anemia of mother in , antepartum Disease Active 0 3-20 00:00: 00 [facility] High-risk in third trimester High-risk in third trimester Disease Active 0 3-20 00:00: 00 [facility] Positive RPR test Positive RPR test Disease Active 0 2-13 00:00: 00 [facility] Anemia, antepartum , third trimester Anemia, antepartum , third trimester Disease Active 0 9-08 00:00: 00 [facility] 36 weeks gestation of 36 weeks gestation of Disease Active 0 6-09 00:00: 00 [facility] Low-lying placenta in second trimester Low-lying placenta in second trimester Disease Active 6-09 00:00: 00 Last Assessmen t & Plan: Formattin g of this note might be different from the original. Resolved on 11/01/2020 USG [facility] 39 weeks gestation of 39 weeks gestation of Disease Active 0 6-09 00:00: 00 [facility] Previous section Previous section Disease Active 0 3-17 00:00: 00 [facility] Poor growth affecting management of mother in third trimester Poor growth affecting management of mother in third trimester Disease Active 09-20 00:00: 00 [facility] 37 weeks gestation of 37 weeks gestation of Disease Active 09-20 00:00: 00 [facility] Obesity (BMI 30-39.9) Obesity (BMI 30-39.9) Disease Active 723 00:00: 00 [facility] Liveborn infant, of loza , born in hospital by delivery Liveborn , of loza , born in hospital by delivery Disease Active 09-20 00:00: 00 [facility] Rubella non-immune status, antepartum Rubella non-immune status, antepartum Disease Active 4-16 00:00: 00 Overview: Formattin g of this note might be different from the original. Address pp [facility] Supervisio n of other normal Supervisio n of other normal Disease Active 06-13 00:00: 00 Overview: Formattin g of this note might be different from the original. See scanned records for previous care [facility] Obesity in Obesity in Disease Active 06-13 00:00: 00 [facility] Supervisio n of high-risk with insufficie nt care in third trimester Supervisio n of high-risk with insufficie nt care in third trimester Disease Active 06-13 00:00: 00 Overview: Formattin g of this note might be different from the original. See scanned records for previous care [facility] Allergies, Adverse Reactions, Alerts Allergy Name Allergy Type Status Severity Reaction(s) Onset Date Inactive Date Treating Clinician Comments Source NO KNOWN ALLERGIE S Drug Class Active [facility] Social History Social Habit Start Date Stop Date Quantity Comments Source ASSERTION 2021-09-26 00:00:00 [facility] 2022-06-05 00:00:00 2022-06-05 00:00:00 Current non-drinker of alcohol (finding) [facility] Exposure to SARS-CoV-2 (event) 2022-05-25 00:00:00 2022-06-04 22:20:00 Not sure [facility] Tobacco use and exposure 2022-06-02 00:00:00 2022-06-02 00:00:00 Smokeless tobacco non-user [facility] History of Social function 2018-09-06 00:00:00 2018-09-06 00:00:00 [facility] Sex Assigned At 2000 00:00:00 2000 00:00:00 [facility] Smoking Status Start Date Stop Date Source Never smoked tobacco [facility] Medications Ordered Medication Name Filled Medication Name Start Date Stop Date Current Medication? Ordering Clinician Indication Dosage Frequency Signature (SIG) Comments Components Source diazePAM (VALIUM) tablet 10 mg 06-04 01:45: 00 06-04 01:44 :00 No 10mg 10 mg, Oral, ONCE, 1 dose, On Wed06/04/23 at 2045, CANDY [facility] acetaminoph en (TYLENOL) tablet 650 mg 04-15 01:15: 00 04-15 01:23 :00 No 650mg 650 mg, Oral, ONCE, 1 dose, On Wed04/14/23 at 1915, CANDY [facility] traMADoL 50 mg tablet 14 00:00: 00 04-18 05:59 :00 No [id number] 50mg Take 1 tablet by mouth every 6 (six) hours as needed for Pain (scale 7-10) for up to 3 days. Indication s: acute pain [facility] traMADoL (ULTRAM) tablet 50 mg 06-05 05:45: 00 06-05 04:48 :00 No 50mg 50 mg, Oral, ONCE, 1 dose, On Wed06/05/22 at 0045, Routine [facility] ibuprofen (IBU) tablet 600 mg 06-04 17:00: 00 Yes 600mg 600 mg, Oral, Q6H ABX, First dose on Patt 06/04/22 at 1200, Until Discontinu ed, Routine [facility] acetaminoph en 325 mg tablet 06-04 00:00: 00 Yes [id number] 650mg Take 2 tablets by mouth every 6 (six) hours as needed for Pain (scale 1-3) or Pain (scale 4-6). [facility] vitamin w/FA tablet 06-04 00:00: 00 Yes [id number] 1{tbl} Take 1 tablet by mouth in the morning. [facility] docusate 100 mg capsule 06-04 00:00: 00 Yes [id number] 200mg Take 2 capsules by mouth once daily as needed for Constipati on. [facility] ferrous sulfate 325 mg (65 mg iron) tablet 06-04 00:00: 00 Yes [id number] 325mg Take 1 tablet by mouth in the morning and 1 tablet in the evening. [facility] ibuprofen 600 mg tablet 06-04 00:00: 00 Yes [id number] 600mg Take 1 tablet by mouth every 6 (six) hours as needed (Pain). Take with food or milk. [facility] vitamin w/FA tablet 06-04 00:00: 00 Yes [id number] 1{tbl} Take 1 tablet by mouth in the morning. [facility] HYDROcodone -acetaminop hen 5-325 mg tablet 06-04 00:00: 00 06-12 04:59 :00 No [id number] 1{tbl} Take 1 tablet by mouth every 6 (six) hours as needed for Pain (scale 7-10) (Alternate with Ibuprofen) for up to 7 days. Indication s: acute pain [facility] gabapentin 300 mg capsule 06-04 00:00: 00 06-10 04:59 :00 No [id number] 300mg Take 1 capsule by mouth in the morning and 1 capsule at noon and 1 capsule in the evening. Do all this for 5 days. [facility] ketorolac (TORADOL) injection 30 mg 06-03 17:00: 00 06-04 11:30 :00 No 30mg 30 mg, Slow IV Push, Q6H ABX, 4 doses, First dose on Wed06/03/22 at 1200, Last dose on Wed06/04/22 at 0600, Routine [facility] gabapentin (NEURONTIN) capsule 300 mg 06-03 13:00: 00 Yes 300mg 300 mg, Oral, TID, First dose on Wed06/03/22 at 0800, Until Discontinu ed, Routine [facility] acetaminoph en (TYLENOL) tablet 650 mg 06-03 11:00: 00 Yes 650mg 650 mg, Oral, Q6H ABX, First dose on Wed06/03/22 at 0600, Until Discontinu ed, Routine [facility] HYDROcodone -acetaminop hen (NORCO 5) 5-325 mg tablet 1 tablet 06-03 11:00: 00 Yes 1{tbl} 1 tablet, Oral, Q6HPRN, Starting on Wed06/03/22 at 0600, Until Discontinu ed, Routine, Pain (scale 7-10), Alternate with Ibuprofen [facility] mupirocin (BACTROBAN OINT) 2 % skin ointment 06-03 02:50: 00 Yes Intra-op [facility] sodium chloride 0.9 % irrigation solution 06-03 02:48: 00 Yes PRN, Starting on Wed06/02/22 at 2148, Until Discontinu ed, Intra-op [facility] rho(D) immune globulin (RHOGAM) syringe 300 mcg 06-03 01:47: 55 Yes 300ug 300 mcg, Intramuscu lar, ONCE, For 1 dose, Conditiona l, Routine [facility] diphenhydrA MINE (BENADRYL) injection 25 mg 06-03 01:46: 02 Yes 25mg 25 mg, Slow IV Push, Q6HPRN, Starting on Wed06/02/22 at 2045, Until Discontinu ed, Routine, Itching [facility] diphenhydrA MINE (BENADRYL) tablet 25 mg 06-03 01:46: 01 Yes 25mg 25 mg, Oral, Q6HPRN, Starting on Wed06/02/22 at 2045, Until Discontinu ed, Routine, Sleep, Itching [facility] ondansetron (ZOFRAN (PF)) injection 4 mg 06-03 01:46: 01 Yes 4mg 4 mg, Slow IV Push, Q8HPRN, Starting on Wed06/02/22 at 2045, Until Discontinu ed, Routine, Nausea and Vomiting (N/V) [facility] bisacodyL (DULCOLAX) suppository 10 mg 06-03 01:46: 01 Yes 10mg 10 mg, Rectal, QDAILYPRN, Starting on Wed06/02/22 at 2045, Until Discontinu ed, Routine, Constipati on [facility] simethicone (GAS RELIEF (SIMETHICON E)) chewable tablet 160 mg 06-03 01:46: 01 Yes 160mg 160 mg, Oral, PC+HSPRN, Starting on Wed06/02/22 at 2045, Until Discontinu ed, Routine, Gas [facility] docusate (COLACE) capsule 200 mg 06-03 01:46: 01 Yes 200mg 200 mg, Oral, QDAILYPRN, Starting on Wed06/02/22 at 2045, Until Discontinu ed, Routine, Constipati on [facility] magnesium hydroxide (MILK OF MAGNESIA) 400 mg/5 mL suspension 30 mL 06-03 01:46: 01 Yes 30mL 30 mL, Oral, QDAILYPRN, Starting on Wed06/02/22 at 2045, Until Discontinu ed, Routine, Constipati on [facility] lactated ringers IV infusion 1,000 mL 06-03 01:46: 01 06-03 12:51 :00 No 1000mL at 125 mL/hr, 1,000 mL, IV Infusion, PRN, 1 dose, Starting on Wed06/02/22 at 204, Until Wed06/03/22 at 0751, Routine [facility] sodium citrate-cit mel acid (BICITRA) 500-334 mg/5 mL solution 30 mL 06-02 15:45: 44 06-03 01:36 :00 No 30mL 30 mL, Oral, PRE-PROCED URE ONCE, 1 dose, Starting on Wed06/02/22 at 1045, Until Discontinu ed, Routine, Surgery/Pr ocedure [facility] D5W-LR IV infusion 1,000 mL 06-02 15:45: 44 06-03 01:47 :53 No 1000mL at 1-125 mL/hr, IV Infusion, TITRATE, Starting on Wed06/02/22 at 1045, Until Wed06/02/22 at 204, Routine [facility] ceFAZolin (ANCEF) 2,000 mg in NaCl 0.9% (NS) 100 mL MINI-BAG 06-02 15:45: 43 06-03 01:47 :53 No 2000mg 2,000 mg, IV Piggyback, O.R. HOLDING ONCE, Starting on Wed06/02/22 at 1045, Until Wed06/02/22 at 204, Administer over 30 Minutes, 100 mL
Reas on for Anti-Infec tive: Surgical Prophylaxi s
Valdez rgical Prophylaxi s: FUNERAL DIRECTOR
Duration of therapy: within 24 hours of surgery [facility] ferrous sulfate (IRON, FERROUS SULFATE,) 325 mg (65 mg iron) tablet 05-18 00:00: 00 06-04 00:00 :00 No [id number] 325mg Take 1 tablet by mouth in the morning and 1 tablet in the evening. [facility] ferrous sulfate (IRON, FERROUS SULFATE,) 325 mg (65 mg iron) tablet 04-29 00:00: 00 Yes [id number] 325mg Take 1 tablet by mouth in the morning and 1 tablet in the evening. [facility] PNV 102-iron-fo late-dha (VITAFOL FE PLUS) 90 mg iron- 1 mg-200 mg Cap 2021-03 00:00: 00 06-04 00:00 :00 No [id number] Take 1 TAB-CAP/M2 by mouth daily. [facility] ibuprofen (IBU) tablet 600 mg 07-10 09:00: 00 07-10 07:55 :00 No 600mg 600 mg, Oral, ONCE, 1 dose, On Patt 07/10/21 at 0400, CANDY [facility] acetaminoph en (TYLENOL) tablet 650 mg 07-10 08:00: 00 07-10 07:02 :00 No 650mg 650 mg, Oral, ONCE, 1 dose, On Wed07/10/21 at 0300, CANDY [facility] HYDROcodone -acetaminop hen 5-325 mg tablet 11-11 00:00: 00 11-19 04:59 :00 No [id number] 1{tbl} Take 1 tablet by mouth every 6 (six) hours as needed for Pain (scale 7-10) for up to 7 days. Indication s: acute pain [facility] ondansetron (ZOFRAN (PF)) injection 4 mg 11-09 19:30: 00 11-09 18:33 :00 No 4mg 4 mg, Slow IV Push, ONCE, 1 dose, 11/09/20 at 1430, CANDY [facility] morpHINE injection 4 mg 11-09 19:30: 00 11-09 18:33 :00 No 4mg 4 mg, Slow IV Push, ONCE, 1 dose, 11/09/20 at 1430, STAT [facility] iopamidol (ISOVUE 370-500 mL) injection 120 mL 11-09 19:30: 00 11-09 18:30 :00 No [id number] 120mL 120 mL, Intravenou s, ONCE, 1 dose, 11/09/20 at 1430, Routine [facility] vit calc,iron,f olic ( VITAMIN ORAL) 11-08 12:36: 37 11-08 00:00 :00 No Take by mouth. [facility] ferrous sulfate tablet 325 mg 11-08 01:00: 00 Yes 325mg 325 mg, Oral, BID, First dose on Patt 11/07/20 at 2000, Until Discontinu ed, Routine [facility] ferrous sulfate 325 mg (65 mg iron) tablet 11-08 00:00: 00 05-18 00:00 :00 No [id number] 09 325mg Take 1 tablet by mouth 2 (two) times daily. [facility] acetaminoph en 325 mg tablet 11-08 00:00: 00 12-04 00:00 :00 No [id number] 09 650mg Take 2 tablets by mouth every 6 (six) hours as needed for Pain (scale 1-3) or Pain (scale 4-6). [facility] vitamin w/FA tablet 11-08 00:00: 00 12-04 00:00 :00 No [id number] 09 1{tbl} Take 1 tablet by mouth daily. [facility] docusate calcium 240 mg capsule 11-08 00:00: 00 12-04 00:00 :00 No [id number] 09 240mg Take 1 capsule by mouth once daily as needed for Constipati on. [facility] ibuprofen 600 mg tablet 11-08 00:00: 00 12-04 00:00 :00 No [id number] 09 600mg Take 1 tablet by mouth every 6 (six) hours as needed (Pain). Take with food or milk. [facility] gabapentin 300 mg capsule 11-08 00:00: 00 11-14 04:59 :00 No [id number] 09 300mg Take 1 capsule by mouth 3 (three) times daily for 5 days. [facility] HYDROcodone -acetaminop hen 5-325 mg tablet 11-08 00:00: 00 11-11 00:00 :00 No [id number] 1{tbl} Take 1 tablet by mouth every 6 (six) hours as needed for Pain (scale 7-10) for up to 7 days. Indication s: acute pain [facility] ibuprofen (IBU) tablet 600 mg 11-07 23:00: 00 Yes 600mg 600 mg, Oral, Q6H ABX, First dose (after last modificati on) on Wed11/07/20 at 1800, Until Discontinu ed, Routine [facility] HYDROcodone -acetaminop hen (NORCO 5) 5-325 mg tablet 1 tablet 11-07 05:00: 00 Yes 1{tbl} 1 tablet, Oral, Q6HPRN, Starting Wed11/07/20 at 0000, Until Discontinu ed, Routine, Pain (scale 7-10) [facility] acetaminoph en (TYLENOL) tablet 650 mg 11-07 02:30: 00 Yes 650mg 650 mg, Oral, Q6H ABX, First dose on Wed11/06/20 at 2130, Until Discontinu ed, Routine [facility] ketorolac (TORADOL) injection 30 mg 11-06 23:15: 00 11-07 16:43 :00 No 30mg 30 mg, Slow IV Push, Q6H ABX, 4 doses, First dose (after last modificati on) on Wed11/06/20 at 1815, Last dose on Patt 11/07/20 at 1215, Routine
crew member approving Restricted medication : TEAGAN CHASE [facility] acetaminoph en ADULT (OFIRMEV) injection 1,000 mg 11-06 20:30: 00 11-06 20:55 :00 No 1000mg 1,000 mg, IV Infusion, Administer over 15 Minutes, Q6H, 1 dose, First dose on Wed11/06/20 at 1530, Routine, PACU
In dication: Perioperat rivera Patient [facility] gabapentin (NEURONTIN) capsule 300 mg 11-06 19:00: 00 Yes 300mg 300 mg, Oral, TID, First dose on Wed11/06/20 at 1400, Until Discontinu ed, Routine [facility] simethicone (GAS RELIEF (SIMETHICON E)) chewable tablet 160 mg 11-06 18:00: 00 Yes 160mg 160 mg, Oral, PC+HS, First dose on Wed11/06/20 at 1300, Until Discontinu ed, Routine [facility] lactated ringers IV infusion 1,000 mL 11-06 16:15: 00 11-07 03:03 :00 No 1000mL at 125 mL/hr, 1,000 mL, IV Infusion, ONCE, 1 dose, Wed11/06/20 at 1115, Routine [facility] rho(D) immune globulin (RHOGAM) syringe 300 mcg 11-06 15:51: 10 Yes 300ug 300 mcg, Intramuscu lar, ONCE, For 1 dose, Conditiona l, Routine [facility] diphenhydrA MINE (BENADRYL) tablet 25 mg 11-06 15:51: 05 Yes 25mg 25 mg, Oral, Q6HPRN, Starting Wed11/06/20 at 1051, Until Discontinu ed, Routine, Sleep, Itching [facility] ondansetron (ZOFRAN (PF)) injection 4 mg 11-06 15:51: 05 Yes 4mg 4 mg, Slow IV Push, Q8HPRN, Starting Wed11/06/20 at 1051, Until Discontinu ed, Routine, Nausea and Vomiting (N/V) [facility] bisacodyL (DULCOLAX) suppository 10 mg 11-06 15:51: 05 Yes 10mg 10 mg, Rectal, QDAILYPRN, Starting Wed11/06/20 at 1051, Until Discontinu ed, Routine, Constipati on [facility] magnesium hydroxide (MILK OF MAGNESIA) 400 mg/5 mL suspension 30 mL 11-06 15:51: 05 Yes 30mL 30 mL, Oral, QDAILYPRN, Starting Wed11/06/20 at 1051, Until Discontinu ed, Routine, Constipati on [facility] HYDROmorphO ne (DILAUDID) injection 0.2 mg 11-06 15:11: 16 Yes .2mg 0.2 mg, Slow IV Push, Q5MIN PRN, 10 doses, Starting Wed11/06/20 at 1011, Until Discontinu ed, Routine, Pain (scale 7-10), PACU
Us e approved by (Faculty): PACU USE -ANESTHESI A SERVICE-HY DROMORPHON E INJECTIONS [facility] naloxone (NARCAN) injection 0.4 mg 11-06 15:11: 16 11-08 15:10 :16 No .4mg 0.4 mg, Slow IV Push, PRN - SEE INSTRUCTIO NS, Starting Wed11/06/20 at 1011, Until 11/08/20 at 1010, Routine, Analgesia Recovery, PACU [facility] metoclopram chidi HCl (REGLAN) injection 10 mg 11-06 15:11: 16 11-07 15:10 :16 No 10mg 10 mg, Slow IV Push, Q4HPRN, Starting Wed11/06/20 at 1011, Until Patt 11/07/20 at 1010, Routine, Nausea and Vomiting (N/V), PACU [facility] nalbuphine (NUBAIN) injection 5 mg 11-06 15:11: 16 11-06 19:21 :00 No 5mg 5 mg, Intravenou s, PRN, 1 dose, Starting Wed11/06/20 at 1011, Until Discontinu ed, Routine, itching, PACU [facility] vit calc,iron,f olic ( VITAMIN ORAL) 11-06 15:06: 46 Yes Take by mouth. [facility] mupirocin (BACTROBAN OINT) 2 % skin ointment 11-06 14:43: 00 Yes Intra-op [facility] sodium chloride 0.9 % irrigation solution 11-06 14:43: 00 Yes PRN, Starting Wed11/06/20 at 0943, Until Discontinu ed, Intra-op [facility] D5W-LR IV infusion 1,000 mL 11-06 10:45: 00 11-06 15:51 :10 No 1000mL at 125 mL/hr, IV Infusion, CONTINUOUS , Starting Wed11/06/20 at 0545, Until Wed11/06/20 at 1051, Routine [facility] vit calc,iron,f olic ( VITAMIN ORAL) 08-06 20:04: 39 Yes Take by mouth. [facility] Immunizations Ordered Immunization Name Filled Immunization Name Date Status Comments Source [facility] 2018-09-22 00:00:00 Completed [facility] 2018-09-22 00:00:00 Completed [facility] 2018-09-22 00:00:00 Completed [facility] 2018-09-22 00:00:00 Completed [facility] 2018-09-22 00:00:00 Completed [facility] 2018-09-22 00:00:00 Completed [facility] 2018-09-22 00:00:00 Completed [facility] 2018-09-22 00:00:00 Completed [facility] 2018-09-22 00:00:00 Completed [facility] 2018-09-22 00:00:00 Completed [facility] 2018-09-22 00:00:00 Completed [facility] MMR 2018-09-22 00:00:00 Completed [facility] MMR 2018-09-22 00:00:00 Completed [facility] MMR 2018-09-22 00:00:00 Completed [facility] MMR 2018-09-22 00:00:00 Completed [facility] MMR 2018-09-22 00:00:00 Completed [facility] MMR 2018-09-22 00:00:00 Completed [facility] MMR 2018-09-22 00:00:00 Completed [facility] MMR 2018-09-22 00:00:00 Completed [facility] MMR 2018-09-22 00:00:00 Completed [facility] MMR 2018-09-22 00:00:00 Completed [facility] MMR 2018-09-22 00:00:00 Completed [facility] MMR 2018-09-22 00:00:00 Completed [facility] MMR 2018-09-22 00:00:00 Completed [facility] MMR 2018-09-22 00:00:00 Completed [facility] MMR 2018-09-22 00:00:00 Completed [facility] MMR 2018-09-22 00:00:00 Completed [facility] MMR 2018-09-22 00:00:00 Completed [facility] MMR 2018-09-22 00:00:00 Completed [facility] MMR 2018-09-22 00:00:00 Completed [facility] MMR 2018-09-22 00:00:00 Completed [facility] MMR 2018-09-22 00:00:00 Completed [facility] MMR 2018-09-22 00:00:00 Completed [facility] MMR 2018-09-22 00:00:00 Completed [facility] MMR 2018-09-22 00:00:00 Completed [facility] MMR 2018-09-22 00:00:00 Completed [facility] MMR 2018-09-22 00:00:00 Completed [facility] MMR 2018-09-22 00:00:00 Completed [facility] MMR 2018-09-22 00:00:00 Completed [facility] MMR 2018-09-22 00:00:00 Completed [facility] MMR 2018-09-22 00:00:00 Completed [facility] MMR 2018-09-22 00:00:00 Completed [facility] 2018-07-11 00:00:00 Completed [facility] TDAP 2018-07-11 00:00:00 Completed [facility] TDAP 2018-07-11 00:00:00 Completed [facility] 2018-07-11 00:00:00 Completed [facility] 2018-07-11 00:00:00 Completed [facility] TDAP 2018-07-11 00:00:00 Completed [facility] 2018-07-11 00:00:00 Completed [facility] 2018-07-11 00:00:00 Completed [facility] 2018-07-11 00:00:00 Completed [facility] 2018-07-11 00:00:00 Completed [facility] TDAP 2018-07-11 00:00:00 Completed [facility] TDAP 2018-07-11 00:00:00 Completed [facility] TDAP 2018-07-11 00:00:00 Completed [facility] TDAP 2018-07-11 00:00:00 Completed [facility] TDAP 2018-07-11 00:00:00 Completed [facility] TDAP 2018-07-11 00:00:00 Completed [facility] TDAP 2018-07-11 00:00:00 Completed [facility] TDAP 2018-07-11 00:00:00 Completed [facility] TDAP 2018-07-11 00:00:00 Completed [facility] TDAP 2018-07-11 00:00:00 Completed [facility] TDAP 2018-07-11 00:00:00 Completed [facility] TDAP 2018-07-11 00:00:00 Completed [facility] TDAP 2018-07-11 00:00:00 Completed [facility] TDAP 2018-07-11 00:00:00 Completed [facility] TDAP 2018-07-11 00:00:00 Completed [facility] TDAP 2018-07-11 00:00:00 Completed [facility] TDAP 2018-07-11 00:00:00 Completed [facility] TDAP 2018-07-11 00:00:00 Completed [facility] TDAP 2018-07-11 00:00:00 Completed [facility] TDAP 2018-07-11 00:00:00 Completed [facility] TDAP 2018-07-11 00:00:00 Completed [facility] TDAP 2018-07-11 00:00:00 Completed [facility] TDAP 2018-07-11 00:00:00 Completed [facility] TDAP 2018-07-11 00:00:00 Completed [facility] TDAP 2018-07-11 00:00:00 Completed [facility] TDAP 2018-07-11 00:00:00 Completed [facility] TDAP 2018-07-11 00:00:00 Completed [facility] TDAP 2018-07-11 00:00:00 Completed [facility] TDAP 2018-07-11 00:00:00 Completed [facility] TDAP 2018-07-11 00:00:00 Completed [facility] TDAP 2018-07-11 00:00:00 Completed [facility] TDAP 2018-07-11 00:00:00 Completed [facility] TDAP Unknown Completed [facility] MMR Unknown Completed [facility] TDAP Unknown Completed [facility] MMR Unknown Completed [facility] TDAP Unknown Completed [facility] MMR Unknown Completed [facility] TDAP Unknown Completed [facility] MMR Unknown Completed [facility] TDAP Unknown Completed [facility] MMR Unknown Completed [facility] TDAP Unknown Completed [facility] MMR Unknown Completed [facility] Vital Signs Vital Name Observation Time Observation Value Comments S ource Heart rate 2023-06-05 01:40:00 100 /min [facility] Oxygen saturation in Arterial blood by Pulse oximetry 2023-06-05 01:40:00 96 /min [place] [facility] Systolic blood pressure 2023-06-05 01:29:00 130 mm[Hg] [facility] Diastolic blood pressure 2023-06-05 01:29:00 73 mm[Hg] [facility] Body temperature 2023-06-05 01:29:00 37.28 Maryanne [facility] Respiratory rate 2023-06-05 01:29:00 26 /min [facility] Body height 2023-06-05 01:29:00 160 cm [facility] Body weight 2023-06-05 01:29:00 72.576 kg [facility] BMI 2023-06-05 01:29:00 28.34 kg/m2 [facility] Systolic blood pressure 2023-04-15 03:00:35 117 mm[Hg] [facility] Diastolic blood pressure 2023-04-15 03:00:35 78 mm[Hg] [facility] Heart rate 2023-04-15 03:00:35 80 /min [facility] Respiratory rate 2023-04-15 03:00:35 18 /min [facility] Oxygen saturation in Arterial blood by Pulse oximetry 2023-04-15 03:00:35 100 /min [facility] Body temperature 2023-04-15 00:42:00 37.44 Maryanne [facility] Body height 2023-04-15 00:42:00 160 cm [facility] Body weight 2023-04-15 00:42:00 72.576 kg [facility] BMI 2023-04-15 00:42:00 28.34 kg/m2 [facility] Systolic blood pressure 2022-06-05 20:27:00 115 mm[Hg] [facility] Diastolic blood pressure 2022-06-05 20:27:00 83 mm[Hg] [facility] Heart rate 2022-06-05 20:27:00 89 /min [facility] Body temperature 2022-06-05 20:27:00 36.72 Maryanne [facility] Respiratory rate 2022-06-05 20:27:00 185 /min [facility] Body height 2022-06-05 20:27:00 160 cm [facility] Body weight 2022-06-05 20:27:00 88.724 kg [facility] BMI 2022-06-05 20:27:00 34.65 kg/m2 [facility] Systolic blood pressure 2022-06-05 03:20:00 122 mm[Hg] [facility] Diastolic blood pressure 2022-06-05 03:20:00 80 mm[Hg] [facility] Heart rate 2022-06-05 03:20:00 92 /min [facility] Body temperature 2022-06-05 03:20:00 37.22 Maryanne [facility] Respiratory rate 2022-06-05 03:20:00 16 /min [facility] Body height 2022-06-05 03:20:00 160 cm [facility] Body weight 2022-06-05 03:20:00 86.183 kg [facility] BMI 2022-06-05 03:20:00 33.66 kg/m2 [facility] Oxygen saturation in Arterial blood by Pulse oximetry 2022-06-05 03:20:00 100 /min [facility] Systolic blood pressure 2022-06-04 12:42:00 108 mm[Hg] [facility] Diastolic blood pressure 2022-06-04 12:42:00 76 mm[Hg] [facility] Body temperature 2022-06-04 12:42:00 37.06 Maryanne [facility] Respiratory rate 2022-06-04 12:42:00 16 /min [facility] Oxygen saturation in Arterial blood by Pulse oximetry 2022-06-04 12:42:00 100 /min [facility] Heart rate 2022-06-04 10:19:00 89 /min [facility] Body height 2022-06-02 16:01:00 160 cm [facility] Body weight 2022-06-02 16:01:00 87.544 kg [facility] BMI 2022-06-02 16:01:00 34.19 kg/m2 [facility] Systolic blood pressure 2022-06-02 20:00:00 92 mm[Hg] [facility] Diastolic blood pressure 2022-06-02 20:00:00 50 mm[Hg] [facility] Heart rate 2022-06-02 20:00:00 71 /min [facility] Body temperature 2022-06-02 20:00:00 36.94 Maryanne [facility] Respiratory rate 2022-06-02 20:00:00 18 /min [facility] Oxygen saturation in Arterial blood by Pulse oximetry 2022-06-02 20:00:00 99 /min [facility] Body height 2022-06-02 16:01:00 160 cm [facility] Body weight 2022-06-02 16:01:00 87.544 kg [facility] BMI 2022-06-02 16:01:00 34.19 kg/m2 [facility] Systolic blood pressure 2022-05-18 15:18:00 107 mm[Hg] [facility] Diastolic blood pressure 2022-05-18 15:18:00 71 mm[Hg] [facility] Heart rate 2022-05-18 15:18:00 84 /min [facility] Body temperature 2022-05-18 15:18:00 36.72 Maryanne [facility] Respiratory rate 2022-05-18 15:18:00 18 /min [facility] Body height 2022-05-18 15:18:00 160 cm [facility] Body weight 2022-05-18 15:18:00 88.451 kg [facility] BMI 2022-05-18 15:18:00 34.54 kg/m2 [facility] Systolic blood pressure 2022-04-29 19:04:00 108 mm[Hg] [facility] Diastolic blood pressure 2022-04-29 19:04:00 73 mm[Hg] [facility] Heart rate 2022-04-29 19:04:00 84 /min [facility] Body temperature 2022-04-29 19:04:00 37.11 Maryanne [facility] Respiratory rate 2022-04-29 19:04:00 18 /min [facility] Body height 2022-04-29 19:04:00 160 cm [facility] Body weight 2022-04-29 19:04:00 77.111 kg [facility] BMI 2022-04-29 19:04:00 30.11 kg/m2 [facility] Systolic blood pressure 2022-04-13 21:43:00 103 mm[Hg] [facility] Diastolic blood pressure 2022-04-13 21:43:00 68 mm[Hg] [facility] Heart rate 2022-04-13 21:43:00 85 /min [facility] Body temperature 2022-04-13 21:43:00 36.61 Maryanne [facility] Body height 2022-04-13 21:43:00 160 cm [facility] Body weight 2022-04-13 21:43:00 84.641 kg [facility] BMI 2022-04-13 21:43:00 33.05 kg/m2 [facility] Systolic blood pressure 2022-02-11 21:12:00 101 mm[Hg] [facility] Diastolic blood pressure 2022-02-11 21:12:00 65 mm[Hg] [facility] Heart rate 2022-02-11 21:12:00 77 /min [facility] Body temperature 2022-02-11 21:12:00 37.06 Maryanne [facility] Respiratory rate 2022-02-11 21:12:00 18 /min [facility] Body height 2022-02-11 21:12:00 160 cm [facility] Body weight 2022-02-11 21:12:00 77.565 kg [facility] BMI 2022-02-11 21:12:00 30.29 kg/m2 [facility] Systolic blood pressure 2022-01-05 21:26:00 103 mm[Hg] [facility] Diastolic blood pressure 2022-01-05 21:26:00 67 mm[Hg] [facility] Heart rate 2022-01-05 21:26:00 101 /min [facility] Body temperature 2022-01-05 21:26:00 36.72 Maryanne [facility] Respiratory rate 2022-01-05 21:26:00 18 /min [facility] Body height 2022-01-05 21:26:00 160 cm [facility] Body weight 2022-01-05 21:26:00 75.025 kg [facility] BMI 2022-01-05 21:26:00 29.30 kg/m2 [facility] Body temperature 2021-07-10 08:00:00 38.06 Maryanne [facility] Systolic blood pressure 2021-07-10 06:42:00 111 mm[Hg] [facility] Diastolic blood pressure 2021-07-10 06:42:00 70 mm[Hg] [facility] Heart rate 2021-07-10 06:42:00 150 /min [facility] Respiratory rate 2021-07-10 06:42:00 22 /min [facility] Body height 2021-07-10 06:42:00 160 cm [facility] Body weight 2021-07-10 06:42:00 68.04 kg [facility] BMI 2021-07-10 06:42:00 26.57 kg/m2 [facility] Oxygen saturation in Arterial blood by Pulse oximetry 2021-07-10 06:42:00 98 /min [facility] Systolic blood pressure 2020-12-04 16:17:00 110 mm[Hg] [facility] Diastolic blood pressure 2020-12-04 16:17:00 75 mm[Hg] [facility] Heart rate 2020-12-04 16:17:00 96 /min [facility] Body temperature 2020-12-04 16:17:00 36.89 Maryanne [facility] Respiratory rate 2020-12-04 16:17:00 18 /min [facility] Body height 2020-12-04 16:17:00 160 cm [facility] Body weight 2020-12-04 16:17:00 76.567 kg [facility] BMI 2020-12-04 16:17:00 29.90 kg/m2 [facility] Systolic blood pressure 2020-11-11 20:18:00 120 mm[Hg] [facility] Diastolic blood pressure 2020-11-11 20:18:00 78 mm[Hg] [facility] Heart rate 2020-11-11 20:18:00 91 /min [facility] Body temperature 2020-11-11 20:18:00 36.83 Maryanne [facility] Respiratory rate 2020-11-11 20:18:00 18 /min [facility] Body height 2020-11-11 20:18:00 160 cm [facility] Body weight 2020-11-11 20:18:00 79.833 kg [facility] BMI 2020-11-11 20:18:00 31.18 kg/m2 [facility] Systolic blood pressure 2020-11-09 17:51:00 144 mm[Hg] [facility] Diastolic blood pressure 2020-11-09 17:51:00 82 mm[Hg] [facility] Heart rate 2020-11-09 17:51:00 84 /min [facility] Body temperature 2020-11-09 17:51:00 37.33 Maryanne [facility] Respiratory rate 2020-11-09 17:51:00 14 /min [facility] Body weight 2020-11-09 17:51:00 83.462 kg [facility] BMI 2020-11-09 17:51:00 32.59 kg/m2 [facility] Oxygen saturation in Arterial blood by Pulse oximetry 2020-11-09 17:51:00 99 /min [facility] Systolic blood pressure 2020-11-08 08:51:00 107 mm[Hg] [facility] Diastolic blood pressure 2020-11-08 08:51:00 67 mm[Hg] [facility] Heart rate 2020-11-08 08:51:00 85 /min [facility] Body temperature 2020-11-08 08:51:00 36.56 Maryanne [facility] Respiratory rate 2020-11-08 08:51:00 18 /min [facility] Oxygen saturation in Arterial blood by Pulse oximetry 2020-11-08 08:51:00 100 /min [facility] Body height 2020-11-06 10:47:00 160 cm [facility] Body weight 2020-11-06 10:47:00 83.553 kg [facility] BMI 2020-11-06 10:47:00 32.63 kg/m2 [facility] Systolic blood pressure 2020-11-06 12:30:00 110 mm[Hg] [facility] Diastolic blood pressure 2020-11-06 12:30:00 73 mm[Hg] [facility] Heart rate 2020-11-06 12:30:00 72 /min [facility] Oxygen saturation in Arterial blood by Pulse oximetry 2020-11-06 12:30:00 100 /min [facility] Body temperature 2020-11-06 10:47:00 36.72 Maryanne [facility] Respiratory rate 2020-11-06 10:47:00 18 /min [facility] Body height 2020-11-06 10:47:00 160 cm [facility] Body weight 2020-11-06 10:47:00 83.553 kg [facility] BMI 2020-11-06 10:47:00 32.63 kg/m2 [facility] Systolic blood pressure 2020-11-05 19:29:00 103 mm[Hg] [facility] Diastolic blood pressure 2020-11-05 19:29:00 69 mm[Hg] [facility] Heart rate 2020-11-05 19:29:00 80 /min [facility] Body temperature 2020-11-05 19:29:00 36.78 Maryanne [facility] Respiratory rate 2020-11-05 19:29:00 16 /min [facility] Body height 2020-11-05 19:29:00 160 cm [facility] Body weight 2020-11-05 19:29:00 83.462 kg [facility] BMI 2020-11-05 19:29:00 32.59 kg/m2 [facility] Systolic blood pressure 2020-10-21 21:57:00 114 mm[Hg] [facility] Diastolic blood pressure 2020-10-21 21:57:00 59 mm[Hg] [facility] Heart rate 2020-10-21 21:57:00 102 /min [facility] Body temperature 2020-10-21 21:57:00 36.78 Maryanne [facility] Respiratory rate 2020-10-21 21:57:00 18 /min [facility] Body height 2020-10-21 21:57:00 160 cm [facility] Body weight 2020-10-21 21:57:00 79.924 kg [facility] BMI 2020-10-21 21:57:00 31.21 kg/m2 [facility] Procedures Procedure Date / Time Performed Performing Clinician Source POCT TEST 2023-06-05 01:32:00 Jam Freitas [facility] CONSENT/REFUSAL FOR DIAGNOSIS AND TREATMENT 2023-04-15 00:12:04 Doctor Unassigned, [place] [facility] CONSENT/REFUSAL FOR DIAGNOSIS AND TREATMENT 2022-06-05 03:17:21 Doctor Unassigned, [place] [facility] PREPARE PACKED RBC 2022-06-04 17:48:[address] [facility] CBC WITH DIFF 2022-06-03 09:16:00 Teagan Chase [facility] CBC WITH DIFF 2022-06-03 09:16:00 Teagan Chase [facility] SURGICAL PATHOLOGY EXAM 2022-06-03 02:35:00 Teagan Chase [facility] SECTION 2022-06-03 01:27:00 Teagan Chase [facility] PREPARE PACKED RBC 2022-06-02 18:12:[address] [facility] CBC WITH DIFF 2022-06-02 16:23:00 Teagan Chase [facility] HEPATITIS B SURFACE ANTIGEN 2022-06-02 16:23[facility] 2022-06-02 16:23[facility]00 [facility] LU[facility]ERT[facility] ONLY - RPR 2022-06-02 16:23:00 [facility]/2 [facility]-AB WITH REFLEX 2022-06-02 16:23:00 [facility]FF 2022-06-02 16:23:00 Teagan Chase [facility] HEPATITIS B SURFACE ANTIGEN 2022-06-02 16:23:00 [facility] 2022-06-02 16:23[facility] GLOBULIN 2022-06-02 16:23:00 [facility] - RPR 2022-06-02 16:23[facility]00 [facility]2 AG-AB WITH REFLEX 2022-06-02 16:23:00 Teagan Chase [facility] HOSPITAL ADMISSION 2022-06-02 05:01:00 Doctor Un assigned, [place] [facility] POCT URINALYSIS W/O SPECIFIC GRAVITY 2022-05-18 00:00:00 Teagan Chase [facility] PATIENT FINANCIAL POLICY 2022-04-29 18:57:56 Doctor Unassigned, [place] [facility] POCT URINALYSIS W/O SPECIFIC GRAVITY 2022-04-29 00:00:00 Carey Salgado [facility] STERILIZATION CONSENT FORM 2022-04-13 06:01:00 Doctor Unassigned, [place] [facility] POCT URINALYSIS W/O SPECIFIC GRAVITY 2022-04-13 00:00[facility]00 [facility]INALYSIS W/O SPECIFIC GRAVITY 2022-02-11 00:00:00 Carey Salgado [facility] SCANNED LAB RESULTS 2022-01-19 06:01:00 Doctor Wm shepherd, [place] [facility] URINE DRUG (IMMUNOASSAY) - COMPREHENSIVE DRUG SCREEN 2022-01-05 21:54:00 Rena [facility] GC & CHLAMYDIA AMPLIFIED ASSAY 2022-01-05 21:54:00 Rena [facility] GALV ONLY - VAGINAL PATHOGENS BY NUCLEIC ACID TESTING 2022-01-05 21:54:00 Rena [facility] TRICHOMONAS AMPLIFIED ASSAY 2022-01-05 21:54:00 Rena [facility] PAP SMEAR-LIQUID BASED-CP 2022-01-05 21:54:00 [facility] ASSIGNMENT OF BENEFITS 2022-01-05 20:45:16 Docto r Unassigned, [place] [facility] POCT TEST 2022-01-05 00:00:00 Rena [facility] POCT URINALYSIS W/O SPECIFIC GRAVITY 2022-01-05 00:00:00 Rena [facility] RAPID STREP SCREEN FOR GROUP A 2021-07-10 06:57:00 Nicol Sanches [facility] COVID-19 (ID NOW RAPID TESTING) 2021-07-10 06:57:00 Nicol Sanches [facility] RAPID INFLUENZA A/B 2021-07-10 06:49:00 Nicol Sanches [facility] NOTICE OF PRIVACY PRACTICES 2021-07-10 06:27:49 Doctor Unassigned, [place] [facility] CONSENT/REFUSAL FOR DIAGNOSIS AND TREATMENT 2021-07-10 06:27:10 Doctor Unassigned, [place] [facility] CT ABDOMEN PELVIS W CONTRAST 2020-11-09 18:23:18 James Wheeler [facility] CBC WITH DIFF 2020-11-09 18:00:00 James Wheeler [facility] PROTHROMBIN TIME / INR 2020-11-09 18:00:00 Jorje Wheeler [facility] ACTIVATED PARTIAL THRMPLAS BLANCA 2020-11-09 18:00:00 James Wheeler [facility] CONSENT/REFUSAL FOR DIAGNOSIS AND TREATMENT 2020-11-09 17:41:00 Doctor Unassigned, [place] [facility] CBC WITH DIFF 2020-11-07 08:46:00 Teagan Chase [facility] CBC WITH DIFF 2020-11-07 08:46[facility] 2020[facility]-06 14:26[facility] 2020-11-06 14:26:00 Chase [facility] SECTION 2020-11-06 13:33:[facility] 2020-11-06 13:33[facility] 2020-11-06 05:01:00 Doctor Un assigned, [place] [facility] RHO (D) IMMUNE GLOBULIN 2020-11-05 21:10:00 Chase [facility] RHO (D) IMMUNE GLOBULIN 2020-11-05 21:10:00 Rena [facility] ASSIGNMENT OF BENEFITS 2020-11-05 20:35:50 Docto r Unassigned, [place] [facility] POCT URINALYSIS W/O SPECIFIC GRAVITY 2020-11-05 19:30:00 Rena [facility] >14 WEEKS US LIMITED 2020-10-21 22:30:06 Rena [facility] URINE DRUG (IMMUNOASSAY) - COMPREHENSIVE DRUG SCREEN 2020-10-21 21:51:00 Rena [facility] GC & CHLAMYDIA AMPLIFIED ASSAY 2020-10-21 21:51:00 Rena [facility] GROUP B STREPTOCOCCUS BY PCR 2020-10-21 21:51:00 Rena [facility] TRICHOMONAS AMPLIFIED ASSAY 2020-10-21 21:51:00 Rena [facility] POCT URINALYSIS W/O SPECIFIC GRAVITY 2020-10-21 00:00:00 Chase, Teagan Cam [facility] L&D VISIT (NON-DELIVERED) 2020-06-30 05:01:00 Doctor Unassigned, [place] [facility] L&D VISIT (NON-DELIVERED) 2020-06-30 05:01:00 Doctor Unassigned, [place] [facility] Encounters Start Date/Time End Date/Time Encounter Type Admission Type Attending [facility] Care Department Encounter ID Source 2020-12-30 22:00:33 Emergency [facility] [id number] [facility] 2020-12-29 23:49:53 Emergency [facility] [id number] [facility] 2020-12-29 16:34:20 Outpatient P [facility]FR[facility] [id number] [facility] 2020-12-29 16:33:57 Outpatient P [facility] [id number] [facility] 2020-12-29 16:33:55 Emergency [facility] [id number] [facility] 2023-12-27 09:00:00 2023-12-27 09:00:00 Outpatient PHUONG DELAROSA [id number] Lynn Gabriel 2023-06-04 20:25:00 2023-06-04 20:56:00 Emergency JAM WEI BRENT [facility] ERT [id number] [facility] 2023-06-04 20:25:00 2023-06-04 20:56:00 Emergency James Wheeler Brent J [facility] [id number] [facility] 2023-05-05 15:30:00 2023-05-05 15:30:00 Outpatient SIDNEY DIANE CRAIG [facility] [id number] [facility] 2023-04-14 18:43:00 2023-04-14 21:04:00 Emergency X RAMA RESENDIZ [facility] E[facility] [id number] [facility] 2023-04-14 18:43:00 2023-04-14 21:04:00 Emergency Rama Resendiz [facility] [id number] [facility] 2022-10-04 00:00:00 2022-10-04 00:00:00 Patient Secure Msg Teagan Chase [facility] 1.2840.114 350.1.13.10 4.2.7.2.686 [id number] 134 [id number] [facility] 2022-06-08 00:00:00 2022-06-08 00:00:00 Telephone Teagan Chase [facility] 1.2840.114 350.1.13.10 4.2.7.2.686 [id number] [facility] 2022-06-05 15:00:00 2022-06-05 15:46:50 Outpatient R ROWAN ORTEGA [facility] [id number] [facility] 2022-06-05 15:00:00 2022-06-05 15:46:50 Routine Visit Rowan Ortega [facility] BUILDING 1.2840.114 350.1.13.10 4.2.7.2.686 [id number] 134 [id number] [facility] 2022-06-04 22:24:00 2022-06-04 23:53:00 Emergency X ANYA ISAACS [facility] ERT [id number] [facility] 2022-06-04 22:24:00 2022-06-04 23:53:00 Emergency Anya Isaacs [facility] 1.2840.114 350.1.13.10 4.2.7.2.686 [id number] [facility] 2022-06-02 10:14:00 2022-06-04 12:35:00 Inpatient P TEAGAN CHASE [facility] ALFREDO [id number] [facility] 2022-06-02 10:14:00 2022-06-04 12:35:00 Hospital Encounter Teagan Chase [facility] 1.2.840.114 350.1.13.10 4.2.7.2.686 [id number] [facility] 2022-06-04 00:00:00 2022-06-04 00:00:00 Case Management Teagan Chase [facility] 1.2.840.114 350.1.13.10 4.2.7.2.686 [id number] [facility] 2022-06-04 00:00:00 2022-06-04 00:00:00 Telephone Teagan Chase [facility] PROFESSIO NAL BUILDING 1.2.840.114 350.1.13.10 4.2.7.2.686 [id number] [facility] 2022-06-02 13:15:00 2022-06-02 15:06:00 Surgery Teagan Chase [facility] 1.2.840.114 350.1.13.10 4.2.7.2.686 [id number] [id number] [facility] 2022-06-02 08:30:00 2022-06-02 09:00:00 Associate Professor Physician Visit Ultrasound, Adc Mfm Penelope Salgado [facility] PROFESSIO NAL BUILDING 1.2.840.114 350.1.13.10 4.2.7.2.686 [id number] 134 [id number] [facility] 2022-06-02 08:30:00 2022-06-02 08:30:00 Outpatient P PENELOPE SALGADO [facility] [id number] [facility] 2022-05-27 16:00:00 2022-05-27 16:00:00 Outpatient R TEAGAN CHASE [facility] [id number] [facility] 2022-05-18 09:45:00 2022-05-18 10:35:50 Outpatient R TEAGAN CHASE [facility] [id number] [facility] 2022-05-18 09:45:00 2022-05-18 10:35:50 Routine Visit Teagan Chase [facility] BUILD[facility] 1.2.840.114 350.1.13.10 4.2.7.2.686 [id number] 134 [id number] [facility] 2022-04-30 00:00:00 2022-04-30 00:00:00 Patient Secure Msg Doctor Unassigned, [place] [facility] 1.2840.114 350.1.13.10 4.2.7.2.686 [id number] 134 [id number] [facility] 2022-04-29 13:45:00 2022-04-29 14:00:00 Associate Professor Physician Visit 2, Adc Lab Carey Salgado [facility] 1.2.840.114 350.1.13.10 4.2.7.2.686 [id number] [facility] 2022-04-29 13:45:00 2022-04-29 13:45:00 [facility] [id number] [facility] 2022-04-29 13:00:00 2022-04-29 13:15:00 Routine Visit Billy Carey [facility] 1.2.840.114 350.1.13.10 4.2.7.2.686 [id number] 134 [id number] [facility] 2022-04-29 00:00:00 2022-04-29 00:00:00 Orders Only Doctor Unassigned, [place] [facility] 1.84.114 350.1.13.10 4.2.7.2.686 [id number] [id number] [facility] 2022-04-29 00:00:00 2022-04-29 00:00:00 Case Management Teagan Chase [facility] BUILDING 1.840.114 350.1.13.10 4.2.7.2.686 [id number] [facility] 2022-04-13 15:30:00 2022-04-13 16:33:37 [facility] [id number] 2022-04-13 15:30:00 2022-04-13 16:33:37 Routine Visit Teagan Chase [facility] 1.840.114 350.1.13.10 4.2.7.2.686 [id number] [facility] 2022-04-13 00:00:00 2022-04-13 00:00:00 Orders Only Doctor Unassigned, [place] [facility] 1..114 350.1.13.10 4.2.7.2.686 [id number] [facility] 2022-03-09 16:00:00 2022-03-09 16:00:00 Outpatient R TEAGAN CHASE [facility] [id number] [facility] 2022-03-03 00:00:00 2022-03-03 00:00:00 Telephone Teagan Chase [facility] BUILDING 1.840.114 350.1.13.10 4.2.7.2.686 [id number] 134 [id number] [facility] 2022-02-11 15:30:00 2022-02-11 16:19:47 Associate Professor Physician Visit 2, Adc Lab Teagan hCase [facility] BUILDING 1..840.114 350.1.13.10 4.2.7.2.686 [id number] [facility] 2022-02-11 16:15:00 2022-02-11 16:15:00 Routine Visit Carey Salgado [facility] JANETH OWUSU [facility] 1.2.840.114 350.1.13.10 4.2.7.2.686 [id number] 134 [id number] [facility] 2022-02-11 16:15:00 2022-02-11 15:48:51 Outpatient R CAREY SALGADO [facility] [id number] [facility] 2022-02-11 14:00:00 2022-02-11 15:00:00 Associate Professor Physician Visit Ultrasound, Wesley Santos [facility] FUNERAL DIRECTOR [facility] 1..840.114 350.1.13.10 4.2.7.2.686 [id number] [facility] 2022-02-02 10:45:00 2022-02-02 10:45:00 Outpatient CAREY LEIGH [facility] [id number] [facility] 2022-02-02 00:00:00 2022-02-02 00:00:00 Telephone Teagan Chase [facility] 1..840.114 350.1.13.10 4.2.7.2.686 [id number] [facility] 2022-01-28 00:00:00 2022-01-28 00:00:00 Telephone Teagan Chase Bam [facility] 1..840.114 350.1.13.10 4.2.7.2.686 [id number] 134 [id number] [facility] 2022-01-27 11:00:00 2022-01-27 11:00:00 Outpatient P [facility] [id number] [facility] 2022-01-19 11:45:00 2022-01-19 12:00:00 Associate Professor Physician Visit 2, Adc Lab Teagan Chase [facility] BUILDING 1.840.114 350.1.13.10 4.2.7.2.686 [id number] [facility] 2022-01-19 11:45:00 2022-01-19 11:45:00 Outpatient R TEAGAN CHASE [facility] [id number] [facility] 2022-01-19 00:00:00 2022-01-19 00:00:00 Orders Only Doctor Unassigned, [place] [facility] 1.84.114 350.1.13.10 4.2.7.2.686 [id number] [id number] [facility] 2022-01-12 09:30:00 2022-01-12 09:30:00 Outpatient R [facility] [id number] [facility] 2022-01-05 14:30:00 2022-01-05 15:56:35 [facility] [id number] [facility] 2022-01-05 14:30:00 2022-01-05 15:56:35 Initial Visit Teagan Chase [facility] 1.840.114 350.1.13.10 4.2.7.2.686 [id number] [facility] 2022-01-05 00:00:00 2022-01-05 00:00:00 Orders Only Doctor Unassigned, [place] [facility] 1..114 350.1.13.10 4.2.7.2.686 [id number] [facility] 2022-01-05 00:00:00 2022-01-05 00:00:00 Refill Teagan Chase [facility] BUILDING 1.84.114 350.1.13.10 4.2.7.2.686 [id number] [facility] 2021-07-10 01:58:00 2021-07-10 03:05:00 Emergency X NICOL SANCHES [facility] ERT [id number] [facility] 2021-07-10 01:58:00 2021-07-10 03:05:00 Emergency Nicol Sanches [facility] 1.2.840.114 350.1.13.10 4.2.7.2.686 [id number] [facility] 2021-06-04 09:30:00 2021-06-04 09:30:00 Outpatient R RENA TEAGAN [facility] [id number] [facility] 2021-04-10 15:30:00 2021-04-10 15:30:00 Outpatient R TEAGAN CHASE [facility] [id number] [facility] 2021-04-07 00:00:00 2021-04-07 00:00:00 Telephone Chase Teagan [facility] BUILDING 1..840.114 350.1.13.10 4.2.7.2.686 [id number] [facility] 2021-01-01 13:00:00 2021-01-01 13:00:00 Outpatient R TEAGAN CHASE [facility] [id number] [facility] 2020-12-12 09:30:00 2020-12-12 09:30:00 Outpatient R RENA TEAGAN [facility] [id number] [facility] 2020-12-04 10:53:43 2020-12-04 11:41:09 Routine Visit Chase Teagan Kuhn [facility] Professio nal Building 1.2.840.114 350.1.13.10 4.2.7.2.686 [id number] [facility] 2020-12-04 11:15:00 2020-12-04 11:15:00 Outpatient R TEAGAN CHASE [facility] [id number] [facility] 2020-11-14 11:15:00 2020-11-14 11:15:00 Outpatient R CAREY SALGADO [facility] [id number] [facility] 2020-11-11 15:03:52 2020-11-11 15:58:53 [facility]ine [facility] 1.2.840.114 350.1.13.10 4.2.7.2.686 [id number] [facility] 2020-11-11 13:15:00 2020-11-11 13:15:00 Outpatient R TEAGAN CHASE [facility] [id number] [facility] 2020-11-11 00:00:00 2020-11-11 00:00:00 [facility] 1.2.840.114 350.1.13.10 4.2.7.2.686 [id number] [facility] 2020-11-11 00:00:00 2020-11-11 00:00:00 [facility] 1.2.840.114 350.1.13.10 4.2.7.2.686 [id number] 134 [id number] [facility] 2020-11-09 12:42:00 2020-11-09 15:33:00 Emergency James Wheeler [facility] 1.2.840.114 350.1.13.10 4.2.7.2.686 [id number] 084 [id number] [facility] 2020-11-06 05:26:00 2020-11-08 11:42:00 Hospital Encounter Teagan Chase [facility] 1.2.840.114 350.1.13.10 4.2.7.2.686 [id number] [facility] 2020-11-06 08:15:00 2020-11-06 09:37:00 Surgery Teagan Chase [facility] 1.2.840.114 350.1.13.10 4.2.7.2.686 [id number] [facility] 2020-11-06 05:26:00 2020-11-06 05:26:00 Outpatient P TEAGAN CHASE [facility] [id number] [facility] 2020-11-06 00:00:00 2020-11-06 00:00:00 Orders Only Doctor Unassigned, [place] [facility] 1.2.840.114 350.1.13.10 4.2.7.2.686 [id number] [facility] 2020-11-05 15:31:18 2020-11-05 15:46:18 Laboratory Only Only, Adc Test Teagan Chase [facility] 1.2.840.114 350.1.13.10 4.2.7.2.686 [id number] [facility] 2020-11-05 15:26:27 2020-11-05 15:41:27 Associate Professor Physician Visit Pob, Adc Lab Main Teagan Chase [facility] Building 1.2.840.114 350.1.13.10 4.2.7.2.686 [id number] [facility] 2020-11-05 14:11:04 2020-11-05 15:10:39 Routine Visit Teagan Chase [facility] Building 1.2.840.114 350.1.13.10 4.2.7.2.686 [id number] [facility] 2020-11-05 14:15:00 2020-11-05 14:15:00 Outpatient R TEAGAN CHASE [facility] [id number] [facility] 2020-11-05 00:00:00 2020-11-05 00:00:00 Orders Only Doctor Unassigned, [place] [facility] 1.2.840.114 350.1.13.10 4.2.7.2.686 [id number] [id number] [facility] 2020-11-01 14:56:29 2020-11-01 15:41:29 Associate Professor Physician Visit Ultrasound, Adc Jonnie Hutton [facility] 1..840.114 350.1.13.10 4.2.7.2.686 [id number] [facility] 2020-11-01 15:15:00 2020-11-01 15:15:00 Outpatient P [facility] [id number] [facility] 2020-10-28 13:45:00 2020-10-28 13:45:00 Outpatient R TEAGAN CHASE [facility] [id number] [facility] 2020-10-23 00:00:00 2020-10-23 00:00:00 Patient Secure Msg Doctor Unassigned, [place] [facility] 1..840.114 350.1.13.10 4.2.7.2.686 [id number] [facility] 2020-10-22 09:30:00 2020-10-22 09:30:00 Outpatient R [facility] [id number] [facility] 2020-10-21 15:46:34 2020-10-21 17:26:14 Routine Visit Teagan Chase Bam [facility] Building 1.2.840.114 350.1.13.10 4.2.7.2.686 [id number] [facility] 2020-10-21 16:15:00 2020-10-21 16:15:00 Outpatient Jad CHASE TEAGAN [facility] [id number] [facility] 2020-10-21 00:00:00 2020-10-21 00:00:00 Orders Only Doctor Unassigned, [place] [facility] 1..840.114 350.1.13.10 4.2.7.2.686 [id number] [facility] 2020-09-30 16:00:00 2020-09-30 16:00:00 Outpatient TEAGAN PEREZ [facility] [id number] [facility] 2020-08-14 10:30:00 2020-08-14 10:30:00 Outpatient R CAREY SALGADO [facility] [id number] [facility] 2020-08-08 14:00:00 2020-08-08 14:00:00 Outpatient TEAGAN PEREZ [facility] [id number] [facility] 2020-07-19 14:00:00 2020-07-19 14:00:00 Outpatient P [facility] [id number] [facility] 2020-07-17 14:45:00 2020-07-17 14:45:00 Outpatient TEAGAN PEREZ [facility] [id number] [facility] 2020-07-10 11:00:00 2020-07-10 11:00:00 Outpatient TEAGAN PEREZ [facility] [id number] [facility] 2020-07-03 00:00:00 2020-07-03 00:00:00 Patient Secure Msg Doctor Unassigned, [place] [facility] 1..840.114 350.1.13.10 4.2.7.2.686 [id number] [facility] 2020-06-28 10:00:00 2020-06-28 10:00:00 Outpatient R [facility] [id number] [facility] 2020-06-12 09:30:00 2020-06-12 09:30:00 Outpatient CAREY LEIGH [facility] [id number] [facility] 2020-05-21 00:00:00 2020-05-21 00:00:00 Outpatient TEAGAN PEREZ [facility] [id number] [facility] 2020-05-15 10:00:00 2020-05-15 10:00:00 Outpatient TEAGAN PEREZ [facility] [id number] [facility] 2020-04-18 09:00:00 2020-04-18 09:00:00 Outpatient TEAGAN PEREZ [facility] [id number] [facility] Results Test Description Test Time Test Comments Results Result Co mments Source [facility] (D) IMMUNE [id number] 15:14:24* Test Item Value Reference Range Interpretation Comme nts RHIG CANDIDATE? (test code = 5188) No- see comment Patient is not a candidate for RhIg- Patient is Rh Positive.Performed at [facility] [address] [place], [place] [address]Toll Free: [phone] No. [id number] [facility] (D) IMMUNE [id number] 15:14:24* Test Item Value Reference Range Interpretation Comme nts RHIG CANDIDATE? (test code = 5188) No- see comment Patient is not a candidate for RhIg- Patient is Rh Positive.Performed at [facility] Blood [address] [place], [place] [address]Toll Free: [phone] No. [id number] [facility] SPECIFIC [id number] 15:16:00* Test Item Value Reference Range Interpretation Comme nts POCT PH U (test code = 3254) n/a 5-8 POCT U LEUK EST (test code = 3263) n/a Negative - Negative POCT U NIT (test code = 3262) n/a Negative - Negati ve POCT U PROT (test code = 3259) negative Negative - Negat irvera POCT U GLU (test code = 3256) negative Negative - Negati ve POCT U KETONE (test code = 3258) n/a Negative - Neg ative POCT U BLD (test code = 3257) n/a Negative - Negati ve [facility] URINALYSIS W/O SPECIFIC [id number] 19:15:00* Test Item Value Reference Range Interpretation [...] = 3257) n/a Negative - Negati ve [facility] URINALYSIS W/O SPECIFIC [id number] 21:42:00* Test Item Value Reference Range Interpretation [...] = 3257) n/a Negative - Negati ve [facility] URINALYSIS W/O SPECIFIC [id number] 21:42:00* Test Item Value Reference Range Interpretation [...] = 3257) n/a Negative - Negati ve [facility] URINALYSIS W/O SPECIFIC [id number] 21:42:00* Test Item Value Reference Range Interpretation [...] = 3257) n/a Negative - Negati ve [facility] URINALYSIS W/O SPECIFIC [id number] 21:31:00* Test Item Value Reference Range Interpretation [...] = 3257) N/A Negative - Negati ve [facility] [id number] 21:31:00* Test Item Value Reference Range Interpretation Comme nts POCT PREG (test code = 1605) Positive On board controls acceptable with C Line (test code = 3574) Yes POCT PREG LOT # (test code = 3575) POCT PREG TEST DATE ( test code = 3576) [facility] [id number] 21:31:00* Test Item Value Reference Range Interpretation Comme nts POCT PREG (test code = 1605) Positive On board controls acceptable with C Line (test code = 3574) Yes POCT PREG LOT # (test code = 3575) POCT PREG TEST DATE ( test code = 3576) [facility] [id number] 21:31:00* Test Item Value Reference Range Interpretation Comme nts POCT PREG (test code = 1605) Positive On board controls acceptable with C Line (test code = 3574) Yes POCT PREG LOT # (test code = 3575) POCT PREG TEST DATE ( test code = 3576) [facility] URINALYSIS W/O SPECIFIC [id number] 21:30:00* Test Item Value Reference Range Interpretation [...] = 3257) n/a Negative - Negati ve [facility] URINALYSIS W/O SPECIFIC [id number] 21:30:00* Test Item Value Reference Range Interpretation [...] = 3257) n/a Negative - Negati ve [facility] URINALYSIS W/O SPECIFIC [id number] 21:30:00* Test Item Value Reference Range Interpretation [...] = 3257) n/a Negative - Negati ve [facility] [id number] 19:53:12Postoperative appearance of section. Trace pneumoperitoneum andsmall [...] in the pelvis with average Hounsfield unit [id number] between the uterus and the urinary bladder. [...] th e pelvis with average Hounsfield unit njalfklhtcf67-12 between the uterus and the urinary bladder. [...] evidence ofactive hemorrhage.Preliminary Report Dictated by Resident: Eugenio Hernandez MD., have reviewed this study and agree with the abovereport.[facility]IV[facility] PARTIAL THRMPLAS BLANCA 2020-11-09 18:21:53* Test Item Value Reference Range Interpretation Comme nts APTT Patient (test code = 3173-2) See_Comment [Automated message] The system which generated this result transmitted reference range: 23 - 38 Seconds. The reference range was not used to interpret this result as normal/abnormal. THALIA (test code = THALIA) The [facility] patient population mean normal value for aPTT is 30 seconds. Lab Interpretation (test code = 10504-6) Normal [facility] HospitalPROT[facility]OMBIN TIME / [id number] 18:19:51* Test Item Value Reference Range Interpretation Comme [facility] PROTIME PATIENT (test code = 5964-2) See_Comment [Automated messa ge] The system which generated this result transmitted reference range: 12.0 - 14.7 Seconds. The reference range was not used to interpret this result as normal/abnormal. INR (test code = 6301-6) Normal INR <1.1; Warfarin Therapeutic range 2.0 to 3.0 or 2.5 to 3.5, depending upon the indications. Lab Interpretation (test code = 24422-3) Normal [facility] WITH [id number] 18:09:31* Test Item Value Reference Range Interpretation Comme [facility] WBC (test code = 6690-2) See_Comment [...] 31.8 g/dL 31.6-35.1 RDW-SD (test code = 38276-7) 46.0 fL 39.0-49.9 RDW-CV (test code = 788-0) 16.5 % 12.0-15.5 H PLT (test code = 777-3) See_Comment [Automated messa ge] The system which generated this result transmitted reference range: 166 - 358 10*3/?L. The reference range was not used to interpret this result as normal/abnormal. MPV (test code = 25334-4) 8.9 fL 9.5-12.9 L NRBC/100 WBC (test code = 8058262075) See_Comment [Automated buuteeq ssage] The system which generated this result transmitted reference range: 0.0 - 10.0 /100 WBCs. The reference range was not used to interpret this result as normal/abnormal. NRBC x10^3 (test code = 7808251245) <0.01 See_Comment [Automated messa ge] The system which generated this result transmitted reference range: 10*3/?L. The reference range was not used to interpret this result as normal/abnormal. GRAN MAT (NEUT) % (test code = 770-8) 71.3 % IMM GRAN % (test code = 4541029274) 0.40 % LYMPH % (test code = 736-9) 19.0 % MONO % (test code = 5905-5) 7.0 % EOS % (test code = 713-8) 1.7 % BASO % (test code = 706-2) 0.6 % GRAN MAT x10^3(ANC) (test code = 9947772503) 3.68 10*3/uL 1.88-7.09 IMM GRAN x10^3 (test code = 7754991365) <0.03 0.00-0.06 LYMPH x10^3 (test code = 731-0) 0.98 10*3/uL 1.32-3.29 L MONO x10^3 (test code = 742-7) 0.36 10*3/uL 0.33-0.92 EOS x10^3 (test code = 711-2) 0.09 10*3/uL 0.03-0.39 BASO x10^3 (test code = 704-7) 0.03 10*3/uL 0.01-0.07 Lab Interpretation (test code = 10913-5) Abnormal [facility] with [id number] 12:19:04* Test Item Value Reference Range Interpretation [...] 32.3 g/dL 31.6-35.1 RDW-SD (test code = 13737-4) 45.0 fL 39.0-49.9 RDW-CV (test code = 788-0) 16.1 % 12.0-15.5 H PLT (test code = 777-3) See_Comment [Automated messa ge] The system which generated this result transmitted reference range: 166 - 358 10*3/?L. The reference range was not used to interpret this result as normal/abnormal. MPV (test code = 10385-0) 10.0 fL 9.5-12.9 NRBC/100 WBC (test code = 1544801639) See_Comment [Automated buuteeq ssage] The system which generated this result transmitted reference range: 0.0 - 10.0 /100 WBCs. The reference range was not used to interpret this result as normal/abnormal. NRBC x10^3 (test code = 0430370504) <0.01 See_Comment [Automated messa ge] The system which generated this result transmitted reference range: 10*3/?L. The reference range was not used to interpret this result as normal/abnormal. GRAN MAT (NEUT) % (test code = 770-8) 74.6 % IMM GRAN % (test code = 8932679224) 0.40 % LYMPH % (test code = 736-9) 18.1 % MONO % (test code = 5905-5) 6.2 % EOS % (test code = 713-8) 0.4 % BASO % (test code = 706-2) 0.3 % GRAN MAT x10^3(ANC) (test code = 0519149200) 6.98 10*3/uL 1.88-7.09 IMM GRAN x10^3 (test code = [id number]) 0.04 10*3/uL 0.00-0.06 LYMPH x10^3 (test code = 731-0) 1.70 10*3/uL 1.32-3.29 MONO x10^3 (test code = 742-7) 0.58 10*3/uL 0.33-0.92 EOS x10^3 (test code = 711-2) 0.04 10*3/uL 0.03-0.39 BASO x10^3 (test code = 704-7) 0.03 10*3/uL 0.01-0.07 Lab Interpretation (test code = 50322-9) Abnormal [facility] with [id number] 12:19:04* Test Item Value Reference Range Interpretation [...] 32.3 g/dL 31.6-35.1 RDW-SD (test code = 72898-2) 45.0 fL 39.0-49.9 RDW-CV (test code = 788-0) 16.1 % 12.0-15.5 H PLT (test code = 777-3) See_Comment [Automated messa ge] The system which generated this result transmitted reference range: 166 - 358 10*3/?L. The reference range was not used to interpret this result as normal/abnormal. MPV (test code = 06312-2) 10.0 fL 9.5-12.9 NRBC/100 WBC (test code = 3203829368) See_Comment [Automated buuteeq ssage] The system which generated this result transmitted reference range: 0.0 - 10.0 /100 WBCs. The reference range was not used to interpret this result as normal/abnormal. NRBC x10^3 (test code = 7963067929) <0.01 See_Comment [Automated [employer] ge] The system which generated this result transmitted reference range: 10*3/?L. The reference range was not used to interpret this result as normal/abnormal. GRAN MAT (NEUT) % (test code = 770-8) 74.6 % IMM GRAN % (test code = 6999374700) 0.40 % LYMPH % (test code = 736-9) 18.1 % MONO % (test code = 5905-5) 6.2 % EOS % (test code = 713-8) 0.4 % BASO % (test code = 706-2) 0.3 % GRAN MAT x10^3(ANC) (test code = 9328819218) 6.98 10*3/uL 1.88-7.09 IMM GRAN x10^3 (test code = 2847228657) 0.04 10*3/uL 0.00-0.06 LYMPH x10^3 (test code = 731-0) 1.70 10*3/uL 1.32-3.29 MONO x10^3 (test code = 742-7) 0.58 10*3/uL 0.33-0.92 EOS x10^3 (test code = 711-2) 0.04 10*3/uL 0.03-0.39 BASO x10^3 (test code = 704-7) 0.03 10*3/uL 0.01-0.07 Lab Interpretation (test code = 80852-3) Abnormal [facility] (D) IMMUNE [id number] 16:59:46* Test Item Value Reference Range Interpretation Comme nts RHIG CANDIDATE? (test code = 5055) No- see comment Patient is not a candidate for RhIg- Patient is Rh Positive.Performed at [facility] Laboratory [facility] [address] [place] [address] Free: [phone] No. [id number] [facility] (D) IMMUNE [id number] 16:59:46* Test Item Value Reference Range Interpretation Comme nts RHIG CANDIDATE? (test code = 5055) No- see comment Patient is not a candidate for RhIg- Patient is Rh Positive.Performed at [facility] Blood [address] [place] [address] Free: [phone] No. [id number] [facility] Cord [id number] 15:05:00* Test Item Value Reference Range Interpretation Comme nts VENOUS BASE EXCESS, CORD (test code = 6062671952) mEq/L VENOUS PH, CORD (test code = 9280284668) 7.25-7.45 VENOUS PC02, CORD (test code = 0978358685) See_Comment [Automated messa ge] The system which generated this result transmitted reference range: 27 - 49 mmHg. The reference range was not used to interpret this result as normal/abnormal. VENOUS PO2, CORD (test code = 2717307733) See_Comment [Automated me ssage] The system which generated this result transmitted reference range: 17 - 41 mmHg. The reference range was not used to interpret this result as normal/abnormal. VENOUS BICARBONATE, CORD (test code = 0941242292) See_Comment [Automated messa ge] The system which generated this result transmitted reference range: 12 - 29 mEq/L. The reference range was not used to interpret this result as normal/abnormal. [facility] Cord [id number] 15:05:00* Test Item Value Reference Range Interpretation Comme nts VENOUS BASE EXCESS, CORD (test code = 5263583696) mEq/L VENOUS PH, CORD (test code = 2952633075) 7.25-7.45 VENOUS PC02, CORD (test code = 2445964799) See_Comment [Automated messa ge] The system which generated this result transmitted reference range: 27 - 49 mmHg. The reference range was not used to interpret this result as normal/abnormal. VENOUS PO2, CORD (test code = 1701381530) See_Comment [Automated me ssage] The system which generated this result transmitted reference range: 17 - 41 mmHg. The reference range was not used to interpret this result as normal/abnormal. VENOUS BICARBONATE, CORD (test code = 6718675816) See_Comment [Automated messa ge] The system which generated this result transmitted reference range: 12 - 29 mEq/L. The reference range was not used to interpret this result as normal/abnormal. [facility] Cord [id number] 14:34:56* Test Item Value Reference Range Interpretation Comme nts BASE EXCESS, CORD (test code = 0077696893) mEq/L AC PH, CORD (BEAKER) (test code = 5101585962) 7.18-7.38 PC02, CORD (test code = 2895557961) See_Comment [Automated messa ge] The system which generated this result transmitted reference range: 32 - 66 mmHg. The reference range was not used to interpret this result as normal/abnormal. PO2, CORD (test code = 4283330596) See_Comment [Automated messa ge] The system which generated this result transmitted reference range: 10 - 30 mmHg. The reference range was not used to interpret this result as normal/abnormal. BICARBONATE, CORD (test code = 0510468832) See_Comment [Automated messa ge] The system which generated this result transmitted reference range: 17 - 27 mEq/L. The reference range was not used to interpret this result as normal/abnormal. [facility] Cord [id number] 14:34:56* Test Item Value Reference Range Interpretation Comme nts BASE EXCESS, CORD (test code = 8017610577) mEq/L AC PH, CORD (BEAKER) (test code = 6306175489) 7.18-7.38 PC02, CORD (test code = 6559307095) See_Comment [Automated messa ge] The system which generated this result transmitted reference range: 32 - 66 mmHg. The reference range was not used to interpret this result as normal/abnormal. PO2, CORD (test code = 0329721665) See_Comment [Automated messa ge] The system which generated this result transmitted reference range: 10 - 30 mmHg. The reference range was not used to interpret this result as normal/abnormal. BICARBONATE, CORD (test code = 0349637613) See_Comment [Automated messa ge] The system which generated this result transmitted reference range: 17 - 27 mEq/L. The reference range was not used to interpret this result as normal/abnormal. [facility]CIFIC [id number] 19:30:00* Test Item Value Reference Range Interpretation [...] = 3257) n/a Negative - Negati ve [facility]GROUP B STREPTOCOCCUS BY [id number] 16:30:26* Test Item Value Reference Range Interpretation Comme nts Group B Streptococcus by PCR (test code = 61963-2) Negative Negative Lab Interpretation (test cod e = 97919-3) Normal [facility] HospitalGC & CHLAMYDIA AMPLIFIED [id number] 18:37:52* Test Item Value Reference Range Interpretation Comme nts C. trachomatis Nucleic Acid (test code = 95932-6) Negative Negative N. gonorrhoeae Nucleic Acid (test code = 56503-2) Negative Negative THALIA (test code = THALIA) Lab Interpretation (test cod e = 62029-7) Normal [facility] HospitalTRICHOMONAS AMPLIFIED [id number] 18:32:50 * Test Item Value Reference Range Interpretation Comme nts Trichomonas Nucleic Acid (te st code = 18001-4) Negative Negative THALIA (test code = THALIA) Lab Interpretation (test cod e = 91168-3) Normal [facility] (IMMUNOASSAY) - COMPREHENSIVE DRUG [id number] 00:11:29* Test Item Value Reference Range Interpretation Comme nts AMPHET (test code = 8742547763) Negative Negative BERNARDINO U (test code = 1735531586) Negative Negative BENZO U (test code = 8376194847) Negative Negative Cocaine Metabolite (test code = 4167993556) Negative Negative METHADONE (test code = 8941306401) Negative Negative OPIATES (test code = 5498325074) Negative Negative PCP (test code = 6843921311) Negative Negative THC (test code = 7263782731) Presumptive Positive Negative A THALIA (test code = THALIA) Lab Interpretation (test code = 76444-5) Abnormal [facility]>14 WEEKS US [id number] 22:30:30Limited USG for presentation: ?Cephalic Teagan Chase MD ?10/21/2020 ?5:30 [facility] SPECIFIC GRAVITY 2020-10-21 22:01:00* Test [...] ve Lab Interpretation (test cod e = 50867-8) Normal [facility] Notes Date/Time Note Provider Source 2023-06-04 20:55:25 Pt cleared for incarceration. Pt verbalized understanding of instructions, pt awake alert oriented, resp reg unlabored, skin w/d, color appropriate for race, moves all ext well,pt encouraged to follow up with pcp. No adverse reaction to meds given in ER noted upon discharge Awake, alert oriented, resp reg unlabored, skin w/d, pt leaving amb with steady gait with [place] [employer] officer beside her, in no apparent distress, Florencia Hampton RN [facility] 2023-06-04 20:25:59 Pt arrived via [facility] in custody with [employer] for medical clearance. Pt was arrested and began having an anxiety attack and stated she wanted to hurt herself. Pt remains in custody with officer at bedside. 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 female brought in by PD for FIT. Patient reports severe anxiety attack at this time. Patient reported to PD that she wanted to hurt self, but denies upon arrival to ED. Past Medical History/Immunizations: Past Medical History: Diagnosis Date Anemia, antepartum, third trimester 11/06/2020 BV (bacterial vaginosis) 08/07/2020 Tetanus received in last 5 years: Unknown Allergies: No Known Allergies Past Social History: Tobacco Use Never smoked or used smokeless tobacco. Passive Exposure: Never Vaping Use Never used Alcohol Use No. Drug Use Not Currently. Sexual Activity Sexually active; Partners: Male; Control/Protection: None. Past Surgical History: Past Surgical History: Procedure Laterality Date SECTION N/A 09/20/2018 Surgeon: Teagan Chase MD; Location: [facility] Labor and Delivery OR Location SECTION N/A 11/06/2020 Surgeon: Teagan Chase MD; Location: [facility] Labor and Delivery OR Location SECTION N/A 06/02/2022 Surgeon: Teagan Chase MD; Location: [facility] LABOR AND DELIVERY OR LOCATION Review of Systems: Review of Systems Constitutional: Negative. HENT: Negative. Eyes: Negative. Respiratory: Negative. Breasts: Negative. Cardiovascular: Negative. Gastrointestinal: Negative. Genitourinary: Negative. Musculoskeletal: Negative. Skin: Negative. Neurological: Negative. Psychiatric/Behavioral: Negative for dysphoric mood, hallucinations, self-injury, sleep disturbance and suicidal ideas. The patient is nervous/anxious. The patient is not hyperactive. Endocrine: Endocrine negative Physical Exam: ED Triage Vitals [06/04/232028] Weight 72.6 kg (160 lb) Actual or estimated Estimated by patient/family report Height 1.6 m (5' 3") BP 130/73 Pulse 109 Resp 26 Temp 37.3 ?C (99.1 ?F) Temp source Oral SpO2 97 % Measured on Room air Physical Exam Vitals and nursing note reviewed. Constitutional: General: She is in acute distress. HENT: Head: Normocephalic. Mouth/Throat: Mouth: Mucous membranes are moist. Cardiovascular: Rate and Rhythm: Tachycardia present. Pulmonary: Effort: Pulmonary effort is normal. Skin: General: Skin is warm. Capillary Refill: Capillary refill takes less than 2 seconds. Neurological: General: No focal deficit present. Mental Status: She is alert and oriented to person, place, and time. Psychiatric: Attention and Perception: Attention normal. Mood and Affect: Mood is anxious. Speech: Speech is rapid and pressured. Behavior: Behavior is cooperative. Thought Content: Thought content normal. Cognition and Memory: Cognition and memory normal. Judgment: Judgment normal. Radiology: No orders to display Lab Results: Lab Results POCT TEST - Normal Result Value Ref Range POCT PREG Negative On board controls acceptable with C Line Yes POCT PREG LOT # [id number] POCT PREG TEST DATE 04/07/2024 EKG: If EKG completed, see Procedure Note. Orders and Treatments: Orders Placed This Encounter Procedures POCT TEST Orders Placed This Encounter Medications diazePAM (VALIUM) tablet 10 mg First Provider Eval: ED Events Date/Time Event User Comments 06/04/232040 Medical Screening Begins JAM FREITAS MD -- 06/04/232040 First Provider Evaluation JAM FREITAS MD -- ED COURSE Diagnosis/Impression as of 06/04/232046 Medical clearance for incarceration Procedures: Procedures MDM: Medical Decision Making Amount and/or Complexity of Data Reviewed Labs: ordered. Risk Prescription drug management. A) Situational Anxiety Disposition/Condition: FIT, ER warnings, f/u PCP ED Disposition None Discharge Medications: Patient's Medications START taking these medications No medications on file CONTINUE taking these medications which have NOT CHANGED ACETAMINOPHEN 325 MG TABLET Take 2 tablets by mouth every 6 (six) hours as needed for Pain (scale 1-3) or Pain (scale 4-6). DOCUSATE 100 MG CAPSULE Take 2 capsules by mouth once daily as needed for Constipation. FERROUS SULFATE 325 MG (65 MG IRON) TABLET Take 1 tablet by mouth in the morning and 1 tablet in the evening. IBUPROFEN 600 MG TABLET Take 1 tablet by mouth every 6 (six) hours as needed (Pain). Take with food or milk. VITAMIN W/FA TABLET Take 1 tablet by mouth in the morning. START taking Modified Medications as Prescribed No medications on file STOP taking these medications No medications on file Follow-up: PCP Electronically signed by: Jam Freitas MD 06/04/232049 CARE EMERGENCY PHYSICIAN STAFF [facility] 2023-04-14 21:03:12 Pt given printed and verbal discharge instructions regarding sprain of metacarpophalangeal joint of left thumb and pain of left thumb, encouraged hydration, 1 Prescriptions sent. Discussed tramadol side affects and to avoid driving/operating machinery/or engaging in activities requiring alertness while taking. Pt verbalized understanding of instructions, pt awake alert oriented, resp reg unlabored, skin w/d, color appropriate for race, moves all ext well,pt encouraged to follow up with pcp and hand surgery Advised to seek medical attention for new/prolonged/worsening of symptoms, Symptoms improved. No adverse reaction to meds given in ER noted upon discharge Awake, alert oriented, resp reg unlabored, skin w/d, pt leaving amb with steady gait, in no apparent distress, UELYN Stiles RN [facility] 2023-04-14 18:41:28 Patient states: "I tripped over my kids' toys and landed on my left thumb." UELYN Bailey RN [facility]
[2023-12-25] MEDS ORDERED: LIDOCAINE 1% 20 ML MDV ONE (20:19)
[2023-12-25] MEDS ORDERED: IBUPROFEN 400 MG TAB ONE (20:35)
[2023-12-25] MEDS ORDERED: HYDROCODONE/APAP 5/325 MG TAB ONE (21:13)
--- NOTE | 2023-12-25 21:55 | EDPHYS ---
Physician Documentation [facility] Name: Carrie Geiger Age: 23 yrs Sex: Female : 2000 Arrival Date: 12/25/2023 Time: 19:27 Bed 12 Private MD: ED Physician Jason Stevenson HPI: 12/24 23:06 This 23 yrs old Female presents to ER via Ambulatory with complaints of Wound dr5 Check. 23:06 Pt is coming in for wound check and remove packing from abscess. Pt hasn't followed up dr5 with PCP or surgeon.. 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 - Infectious Disease History:: Denies. - Social history:: Smoking status: Patient denies any tobacco usage or history of. Patient/guardian denies using alcohol, street drugs. ROS: 23:06 Constitutional: as per hpi dr5 Exam: 23:06 Constitutional: This is a well developed, well nourished patient who is awake, alert, dr5 and in no acute distress. Head/Face: Normocephalic, atraumatic. Chest/axilla: Normal chest wall appearance and motion. Nontender with no deformity. No lesions are appreciated. Cardiovascular: Regular rate and rhythm with a normal S1 and S2. Normal PMI, no JVD. No pulse deficits. Respiratory: Lungs have equal breath sounds bilaterally, clear to auscultation. No rales, rhonchi or wheezes noted. No increased work of breathing, no retractions or nasal flaring. Neuro: Awake and alert, GCS 15, oriented to person, place, time, and situation. Cranial nerves II-XII grossly intact. Motor strength 5/5 in all extremities. Sensory grossly intact. Cerebellar exam normal. Normal gait. 23:06 Skin: abscess, that is moderate sized, of the left gluteus isrrael, with drainage, that is bloody, that is purulent, cellulitis, that is mild, on the left gluteus isrrael, induration, that is mild is noted, Vital Signs: 19:40 BP 123 / 87; Pulse 104; Resp 17; Temp 97.5(O); Pulse Ox 100% on R/A; Weight 68.04 kg aa5 (R); Height 5 ft. 3 in. (R); 22:29 BP 124 / 81; Pulse 97; Resp 17; Temp 97.1(O); Pulse Ox 98% on R/A; lg3 19:40 Body Mass Index 26.57 (68.04 kg, 160.02 cm) aa5 Procedures: 23:06 I \T\ D: Incision and drainage was performed for an abscess of the left left gluteus dr5 isrrael Prepped with Betadine, Anesthetized with 2 ml's 1% Lidocaine. Incised with #11 blade. Drained small amount purulent fluid. bloody fluid. Packed with iodoform gauze, Dressing: non-Adherent dressing, the patient tolerated the procedure poorly, Patient did not tolerate procedure well. Inoculated wound with purulent drainage. Small amount of packing placed but patient was grabbing my hand and asking me to stop. Dressing placed and packing that was inserted was kept in place. Recommended to have packing removed in 24-48 hours and to follow up with General Surgery as previously discussed.. MDM: 19:52 Medical Screening Exam initiated rn 23:06 Differential diagnosis: cellulitis, Abscess. Data reviewed: vital signs, nurses notes. dr5 Consideration of Admission/Observation Escalation of care including admission/observation considered. Considered admission if patient was febrile or had worsened abscess from last visit.. I considered the following discharge prescriptions or medication management in the emergency department Medications were administered in the Emergency Department. See MAR. Care significantly affected by the following chronic conditions: Anemia, Anxiety. Care significantly affected by the following Social Determinants of Health: Poor access to healthcare and/or lack of insurance, Poor access to transportation. Counseling: I had a detailed discussion with the patient and/or guardian regarding the historical points, exam findings, and any diagnostic results supporting the discharge/admit diagnosis, the need for outpatient follow up, for definitive care, a family practitioner, a general surgeon, to return to the emergency department if symptoms worsen or persist or if there are any questions or concerns that arise at home. Medication response: [place]. Response to treatment: the patient's symptoms have mildly improved after treatment. Special discussion:. ED course: Attempted to give patient medication before packing, but patient did not tolerate well. Will had Keflex to regimen and have her follow up with general surgery.. 12/24 20:09 Order name: Incision \T\ Drainage Setup; Complete Time: 20:32 rn Administered Medications: 20:50 Drug: Ibuprofen PO 800 mg PO once Route: PO; aa5 22:29 Follow up: Response: No adverse reaction; Marked relief of symptoms lg3 20:50 Drug: Lidocaine Infiltration (1 %) 1 vials 20 ml Infiltration once; to bedside Volume: aa5 20 ml; Route: Infiltration; 22:29 Follow up: Response: No adverse reaction lg3 21:14 Drug: HYDROcodone-acetaminophen PO 5 mg-325 mg 2 tabs PO once Route: PO; lg3 22:29 Follow up: Response: No adverse reaction; Marked relief of symptoms lg3 Disposition: 23:29 Co-signature as Attending Physician, Jason Stevenson MD I reviewed the patient's care rn provided by the Advanced Practice Provider and agree with the diagnosis and treatment plan. Disposition Summary: 12/25/23 21:54 Discharge Ordered Notes: Location: Home dr5 Condition: Stable dr5 Diagnosis - Cutaneous abscess of buttock dr5 Followup: dr5 - With: Emergency Department - When: As needed - Reason: Worsening of condition Followup: dr5 - With: Private Physician - When: 1 - 2 days - Reason: Wound Recheck, If symptoms return, Continuance of care Discharge Instructions: - Discharge Summary Sheet dr5 - Skin Abscess dr5 Forms: - Medication Reconciliation Form dr5 - Antibiotic Education dr5 - Patient Portal Instructions dr5 - Leadership Thank You Letter dr5 Prescriptions: - Anaprox DS 550 mg Oral Tablet - take 1 tablet ORAL route every 12 hours As needed; 20 tablet; Refills: 0, dr5 Product Selection Permitted - Cephalexin 500 mg Oral Capsule - take 1 capsule ORAL route every 6 hours for 10 days; 40 capsule; Refills: 0, dr5 Product Selection Permitted Signatures: Jason Stevenson MD MD rn Calderon, Audri, RN RN aa5 Barb Hussein RN RN lg3 Anton Zamora FNP-C [employer]EDER HEN SERVICE TECHNICIAN-Cdr5 Corrections: (The following items were deleted from the chart) 23:06 23:06 Pt is coming in for wound check and remove packing from abscess. dr5 dr5
--- NOTE | 2023-12-25 21:55 | ER ---
Nurse's Notes [facility] Name: Carrie Geiger Age: 23 yrs Sex: Female : 2000 Arrival Date: 12/25/2023 Time: 19:27 Bed 12 Private MD: Diagnosis: Cutaneous abscess of buttock Presentation: 12/24 19:40 Chief complaint: Patient states: i had an abscess and i never took out the gauze it was aa5 stuffed with. Coronavirus screen: Client denies travel out of the [place] in the last 14 days. At this time, the client does not indicate any symptoms associated with coronavirus-19. Ebola Screen: No symptoms or risks identified at this time. Initial Sepsis Screen: Does the patient meet any 2 criteria? No. Patient's initial sepsis screen is negative. Does the patient have a suspected source of infection? No. Patient's initial sepsis screen is negative. Risk Assessment: Do you want to hurt yourself or someone else? Patient reports no desire to harm self or others. Onset of symptoms is unknown. 19:40 Method Of Arrival: Ambulatory aa5 19:40 Acuity: ONESIMO 4 aa5 Triage Assessment: 19:42 General: Appears in no apparent distress. comfortable, Behavior is calm, cooperative. aa5 Pain: Complains of pain in gluteal cleft. EENT: No deficits noted. No signs and/or symptoms were reported regarding the EENT system. Neuro: No deficits noted. Jeffrey Agitation-Sedation Scale (RASS): 0 - Alert and Calm Level of Consciousness is awake, alert, obeys commands, Oriented to person, place, time, situation. Cardiovascular: No deficits noted. Denies chest pain, shortness of breath, Capillary refill < 3 seconds Clubbing of nail beds is absent JVD is absent Patient's skin is warm and dry. Respiratory: No deficits noted. Airway is patent Respiratory effort is even, unlabored, Respiratory pattern is regular, symmetrical. GI: No deficits noted. No signs and/or symptoms were reported involving the gastrointestinal system. : No deficits noted. No signs and/or symptoms were reported regarding the genitourinary system. Derm: Reports wound to sacral area post abscess. Musculoskeletal: No deficits noted. No signs and/or symptoms reported regarding the musculoskeletal system. Circulation, motion, and sensation intact. Range of motion: intact in all extremities. 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 - Infectious Disease History:: Denies. - Social history:: Smoking status: Patient denies any tobacco usage or history of. Patient/guardian denies using alcohol, street drugs. Screenin:00 [facility] ED Fall Risk Assessment (Adult) History of falling in the last 3 months, lg3 including since admission No falls in past 3 months (0 pts) Confusion or Disorientation No (0 pts) Intoxicated or Sedated No (0 pts) Impaired Gait No (0 pts) Mobility Assist Device Used No (0 pt) Altered Elimination No (0 pt) Score/Fall Risk Level 0 - 2 = Low Risk Oriented to surroundings, Maintained a safe environment, Educated pt \T\ family on fall prevention, incl call for assistance when getting out of bed, Assessed \T\ reinforced patient's understanding of fall precautions. Abuse screen: Denies threats or abuse. Denies injuries from another. Nutritional screening: No deficits noted. Tuberculosis screening: No symptoms or risk factors identified. Assessment: 20:00 General: see triage assessment. lg3 22:27 Reassessment: Patient appears in no apparent distress at this time. No changes from lg3 previously documented assessment. Patient and/or family updated on plan of care and expected duration. Pain level reassessed. Patient is alert, oriented x 3, equal unlabored respirations, skin warm/dry/pink. Vital Signs: 19:40 BP 123 / 87; Pulse 104; Resp 17; Temp 97.5(O); Pulse Ox 100% on R/A; Weight 68.04 kg aa5 (R); Height 5 ft. 3 in. (R); 22:29 BP 124 / 81; Pulse 97; Resp 17; Temp 97.1(O); Pulse Ox 98% on R/A; lg3 19:40 Body Mass Index 26.57 (68.04 kg, 160.02 cm) aa5 ED Course: 19:29 Patient arrived in ED. ra3 19:42 Triage completed. aa5 19:42 Arm band placed on left wrist. aa5 19:52 Jason Stevenson MD is Attending Physician. rn 20:00 Barb Hussein RN is Primary Nurse. lg3 20:00 Patient has correct armband on for positive identification. Placed in gown. Bed in low lg3 position. Call light in reach. Side rails up X 1. Client placed on continuous cardiac and pulse oximetry monitoring. NIBP monitoring applied. Door closed. Noise minimized. Warm blanket given. Pillow given. 20:54 Anton Zamora [facility]-C [facility] 22:27 Assist provider with I \T\ D: of an abscess on right gleuteus Set up I\T\D tray. Performed lg 3 by Anton PHILLIPS Wound packed. iodoform gauze, Dressing with 4X4s, Patient tolerated well. Patient did not have IV access during this emergency room visit. Administered Medications: 20:50 Drug: Ibuprofen PO 800 mg PO once Route: PO; aa5 22:29 Follow up: Response: No adverse reaction; Marked relief of symptoms lg3 20:50 Drug: Lidocaine Infiltration (1 %) 1 vials 20 ml Infiltration once; to bedside Volume: aa5 20 ml; Route: Infiltration; 22:29 Follow up: Response: No adverse reaction lg3 21:14 Drug: HYDROcodone-acetaminophen PO 5 mg-325 mg 2 tabs PO once Route: PO; lg3 22:29 Follow up: Response: No adverse reaction; Marked relief of symptoms lg3 Medication: 22:27 VIS not applicable for this client. lg3 Outcome: 21:54 Discharge ordered by . dr5 22:27 Discharged to home ambulatory, lg3 22:27 Condition: stable 22:27 Discharge instructions given to patient, Instructed on discharge instructions, follow up and referral plans. medication usage, wound care, Demonstrated understanding of instructions, follow-up care, medications, wound care, Prescriptions given X 2, 22:30 Patient left the ED. lg3 Signatures: Jason Stevenson MD MD rn Calderon, Audri, ANT CAIN aa5 Barb Hussein RN RN lg3 Holli Mcgovern ra3 Anton Zamora FNP-C GEOSPATIAL ENGINEER-Cdr5
[2023-12-26 10:42] VITALS: BP 124/81; TEMP 97.1; O2SAT 98
== END 2023-12-25 22:30 | disposition home or self-care (01) ==
LOC: ER 19:27
PROC: 0H98XZZ Drainage of Buttock Skin, External Approach (ICD-10-PCS; principal; 2023-12-25)
DX: L02.31 Cutaneous abscess of buttock (principal)
CPT/HCPCS: 99284; 10060; J2003